=== PATIENT | female | born 1970 | race Caucasian/White ===

== ENCOUNTER → 2016-04-15 | Outpatient (CLI) | payer MEDICARE ==
[~2016-04-15] MED LIST: /DULO30CA OR; /ESOM40CA; /ESOM40CA OR; /SUCR1TA; ALPH0.156 OU; ASCOL; BACL10TA2 OR; BACL10TA2 PO; CALA240T OR; CARA1SUS OR; CARB20TA PO; DEXI60CA PO; DEXILANT PO; DILA2TAB; DILA4TAB PO; DIOV320T OR; DULO20CA; ELMIRON OR; EMBEDA; HYDR-3716 PO; HYDR25TA6 OR; IMIT100T OR; IMIT6INJ; IMIT6INJ SC; KEFL250C6 PO; KEFL500C; KLOR-CON PO; KLOR1TAB69 PO; LIDO1SOL7; LISI20TA5 OR; LYRI75CA; METH10TA2 OR; PENT10CA PO; POTAGRA83 OR; POTASSIUM; PREG50CA OR; REPLAX; TEGR200T PO; TOPI50TA OR; VICO5TAB; VICO5TAB OR; VICODINES TAB OR; [UNRECOGNIZED DRUG - OTHER]; [UNRECOGNIZED DRUG - OTHER]
--- NOTE | 2016-04-17 00:37 | ECWPNPC ---
PATIENT NAME: FATIMAH DEL VALLE : 1970 GENDER: FEMALE VISIT DATE: 04/15/2016 DISCHARGE DATE: 04/15/16 0000 VISIT LOCKED DATE TIME: PHYSICIAN: JOSAFAT ARRIAGA RESOURCE: JOSAFAT ARRIAGA REASON FOR APPOINTMENT 1. MIGRAINE HISTORY OF PRESENT ILLNESS HISTORY OF PRESENT ILLNESS: CONTINUES W CHRONIC LEFT HEAD AND FACIAL PAIN W HX OF MULTIPLE SURGICAL PROCEDURES FOR TRIGEMINAL NEURALGIA.HAD BILAT. SUPRAPUBIC NERVE BLOCK ETC ON 05-10-15 W >75% IMPROVEMENT POSTERIOR HEAD AND LEFT EYE PAIN .CONTINUES W USE OF METHADONE 10MG 2 TAB AM ,1 TAB 12N AND 2 TAB AT HS .USING DILAUDID 4MG RARELY FOR SEVERE EPISODES.USING LYRICA 100MG BID PERSCRIBED BY DR. LAGOS.DENIES SIDE EFFECTS W CURRENT PAIN MEDICATION.PATIENT IS CONCERNED THAT SHE IS HAVING TOO MUCH OPIOD AND THEREFORE IF SHE HAS SURGERY HER PAIN WOULD BE DIFFICULT TO CONTROL.SHE HAS BEEN HAVING SEVERE PAIN TODAY AND IS CRYING INTERMITTENTLY THROUGHOUT VISIT DUE TO SEVERE EPISODES OF PAIN SHOOTING FROM LEFT UPPER MOUTH TO LEFT EYE.STATES IT FEELS LIKE SOMEONE IS RIPPING OUT LEFT UPPER TEETH. HAS BEEN HAVING LEFT SCALP AND FACIAL DERMITITIS X1 MOS.FOLLOWING WITH DR. BEATTY FOR THIS. RATING PAIN VAS 8/10. REVIEW OF HER CASE TOOK GREATER THAN 20MIN OF EXAM TIME. PAIN THE PATIENT DESCRIBES THE PAIN... THE PATIENT DESCRIBES THE PAIN... FALL RISK SCREENING: SCREENING :NO FALLS IN THE PAST YEAR CURRENT MEDICATIONS TAKING TEGRETOL XR 200 MG TABLET EXTENDED RELEASE 12 HOUR 2 TABS IN AM, 3 TABS IN PM ORALLY DIRECTED/DR. LAGOS TAKING TOPAMAX 50 50MG TABLET 3 TABLETS ORAL TWICE DAILY TAKING RANITIDINE HCL 300 MG CAPSULE 1 CAPSULE AT BEDTIME ORALLY ONCE A DAY TAKING VERAPAMIL HCL CR 300 MG CAPSULE EXTENDED RELEASE 24 HOUR 1 CAPSULE ORALLY BEFORE BEDTIME TAKING HYDROCHLOROTHIAZIDE 12.5 12.5MG TABLET 1 TAB(S) ORAL DAILY TAKING MULTIVITAMINS TABLET 1 TAB ORALLY DAILY TAKING ELMIRON 100 MG CAPSULE 1 CAPSULE ON AN EMPTY STOMACH ORALLY THREE TIMES A DAY TAKING IMITREX STATDOSE SYSTEM 6 MG/0.5ML KIT ALSO TAKES 100MG TAB PRN SUBCUTANEOUS PRN/H/A TAKING POTASSIUM CHLORIDE 10 10 MEQ TABLET 2 TAB(S) ORAL BID TAKING DIOVAN 320 MG TABLET 1 TABLET ORALLY ONCE A DAY TAKING DEXILANT 60 MG CAPSULE DELAYED RELEASE 1 CAPSULE ORALLY ONCE A DAY TAKING LYRICA 150 MG CAPSULE 1 CAPSULE ORALLY BID FOR PAIN TAKING METHADONE HCL 10 MG TABLET 1-2 TABLET ORALLY 2 TABS Q AM, 1 TAB AT MIDDAY, 2 TABS AT BEDTIME MDD=5 CHRONIC PAIN TAKING GARLIC - CAPSULE 1 CAP ORALLY DAILY TAKING MAY HAVE TUMERIC 1 CAP ORALLY DAILY TAKING CALCIUM MAGNESIUM PLUS ZINC 1 CAP ORALLY DAILY TAKING VITAMIN B COMPLEX - TABLET 1 TAB ORALLY DAILY TAKING MELATONIN 5 MG TABLET 1 TABLET AT BEDTIME NEEDED WITH FOOD ORALLY ONCE A DAY TAKING HYDROXYZINE HCL 25 MG TABLET 1 TABLET NEEDED ORALLY EVERY 8 HRS FOR ITCHING TAKING CYMBALTA 60 MG CAPSULE DELAYED RELEASE PARTICLES 1 CAPSULE ORALLY TWICE DAILY TAKING DILAUDID 4 MG TABLET 1 TABLET NEEDED ORALLY EVERY 6 HRS MDD4 NOT-TAKING HYDROCODONE-ACETAMINOPHEN 10-325 TABLET 1 TAB MAX 6 DAILY ORALLY EVERY 6 HRS PRN FOR PAIN MDD4, NOTES: 1455 NOT-TAKING DOXYCYCLINE HYCLATE 100 MG CAPSULE 1 CAPSULE ORALLY EVERY 12 HRS MEDICATION LIST REVIEWED AND RECONCILED WITH THE PATIENT PAST MEDICAL HISTORY SEASONAL ALLERGIES ENVIRONMENTAL ALLERGIES INTERSTITIAL CYSTITIS ULCERATIVE COLITIS HYPERTENSION MIGRAINE HEADACHE, CLUSTER CUELLAR 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 TAKES METHODONE, CAN'T TAKE: CONTRAINDICATION SOCIAL HISTORY TOBACCO USE ARE YOU A:NONSMOKER LEARNING BARRIERS / SPECIAL NEEDS ORIENTED TO PLAN OF CARE: PATIENT, PAIN MANAGEMENT PATIENT, ORIENTED TO PLAN OF CARE: PATIENT, PAIN MANAGEMENT PATIENT. NEW PATIENT PAIN DIARY TODAY'S VISITNOTES FROM 0-10, WHAT LEVEL IS YOUR PAIN TODAY?0 PAIN CLINIC PFS, CLERGY, PUBLIC HEALTH REFERRALS PFS REFERRAL NEEDED?NO CLERGY REFERRAL NEEDED?NO PUBLIC HEALTH REFERRAL NEEDED?NO WAS THE PROVIDER NOTIFIED OF ANY PERTINENT INFO?NO PFS REFERRAL NEEDED?NO CLERGY REFERRAL NEEDED?NO PUBLIC HEALTH REFERRAL NEEDED?NO WAS THE PROVIDER NOTIFIED OF ANY PERTINENT INFO?NO REVIEW OF SYSTEMS CONSTITUTIONAL: ANY CHANGE IN YOUR MEDICAL CONDITION? YES PT REPORTS INCREASE IN CONFUSION, DIZZINESS, NAUSEA, AND CRYING. SHE HAS AN APPOINTMENT WITHDR. LAGOS THE END OF APRIL. . CHILLS NO . FEVER NO . INFECTION: DO YOU HAVE NEW INFECTIONS? NO . DO YOU HAVE HISTORY OF MRSA? NO . MUSCULOSKELETAL: ANY NEW PATTERNS OF PAIN OR NUMBNESS? YES PT REPORTS THAT ARMS AND HANDS ARE GETTING RANDOM SHOCK-LIKE PAINS, SCALP AND HEAD PAIN MUCH WORSE, MOVING HER HEAD AND/OR BENDING OVER MAKES PAIN MUCH WORSE, MOSQUE AND EYE HEADACHES HAVE INCREASED IN INTENSITY. OCCIPITAL AREA MUCH WORSE, EXPERIENCING DIZZINESS. . GASTROENTEROLOGY: ANY NEW CHANGE IN BOWEL CONTROL? NO . GENITOURINARY: ANY NEW CHANGE IN BLADDER CONTROL? YES INCREASE IN BLADDER LEAKING . IS THERE A CHANCE YOU COULD BE ? NO . HEMATOLOGY/LYMPH: DO YOU TAKE ANY BLOOD THINNERS? (FOR EXAMPLE- COUMADIN, PLAVIX, AGGRENOX, PLATEL, PRADAXA, OR XARELTO) NO . WHEN WAS YOUR LAST DOSE? DATE: TIME: . NEUROLOGY: HAVE YOU FALLEN IN THE PAST 6 MONTHS? NO . ANY NEW EXTREMITY NUMBNESS OR WEAKNESS? NO . CARDIOLOGY: DO YOU HAVE A PACEMAKER OR DEFIBRILLATOR? NO . RESPIRATORY: HAVE YOU BEEN SICK IN THE PAST WEEK? NO . FEVER NO . FLU LIKE SYMPTOMS? NO . COUGH NO . INTEGUMENTARY: DO YOU HAVE ANY RASHES OR OPEN SORES? YES OPEN AREAS IN SCALP . ALLERGIC/IMMUNO: ARE YOU ALLERGIC TO SHELLFISH OR IV DYE? NO . ANY NEW ALLERGIES? NO . PSYCHIATRIC: DO YOU HAVE THOUGHTS OF HURTING YOURSELF OR SOMEONE ELSE? NO . ARE YOU ABUSED, NEGLECTED, OR IN AN UNSAFE ENVIRONMENT? NO . ENDOCRINOLOGY: ARE YOU DIABETIC? NO . OTHER: DO YOU NEED ANY PRESCRIPTIONS? NO . IF YES, PLEASE LIST: ____ . ANY NEW PROBLEMS WITH YOUR MEDICATIONS? NO . WHEN DID YOU LAST EAT? ____ . WHEN DID YOU LAST DRINK? ____ . WHAT DID YOU LAST DRINK? ____ . NAME OF PERSON DRIVING YOU HOME? ____ . DO YOU HAVE ANY OTHER QUESTIONS OR CONCERNS NO . REVIEWED BY: PROVIDER: JOSAFAT ADLER . VITAL SIGNS WT 170 LBS, HT 62 1/2, BMI 30.59 INDEX, BP 151/100 MM HG, HR 98 /MIN, RR 18 /MIN, TEMP 99.6 F, OXYGEN SAT % 98%, SAFE IN ENV? (Y/N) YES, REVIEWED BY: ALLAN. EXAMINATION GENERAL EXAMINATION: GENERAL APPEARANCE:SEVERE DISCOMFORT WITH INTERMITTENT EPISODES OF LEFT FACIAL,EYE AND NECK JERKING TWITCH.BECOMES TEARFUL WITH REPORTS OF INCREASE IN SEVERE PAIN DURING THESES MOVEMENTS.. HEENT:PUPILS EQUAL AND REACTIVE TO LIGHT (AYANA).HYPER SENSITIVE TO LIGHT TOUCH LEFT FACE AND HEAD.TENDER OVER LEFT OCCIPITAL AREA AND SCAR IN THIS AREA.. NECK:NO LYMPHADENOPATHY. LUNGS:LUNG SOUNDS ARE CLEAR. HEART:HEART RATE REGULAR. MUSCULOSKELETAL:*. NEUROLOGIC EXAM:DTRS 1-2+ IN ALL 4 EXTREMITIES, MOTOR STRENGTH - 5/5 UPPER AND LOWER EXTREMITIES. 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 BRINGS IN MEDICATIONS WHICH IS APPROPRIATE FOR WHAT WAS DISPENSED. RECENT URINE TOXICOLOGY REVIEWED. NO UNAUTHORIZED MEDICATIONS. NO ILLICIT SUBSTANCES AND PRESCRIBED MEDICATIONS WERE PRESENT. , RISKS AND BENEFITS OF NARCOTIC/OPIOD MEDICATIONS WERE REVIEWED WITH PATIENT - THIS INCLUDES BUT IS NOT LIMITED TO RISK OF DEPENDANCE/DEVELOPMENT OF ADDICTION, MOOD DISTURBANCE AND DEPRESSION, OSTEOPOROSIS, HORMONAL AND LABIDAL CHANGES, RESPIRATORY DEPRESSION AND . PATIENT IS ADVISED NOT TO DRIVE WHILE ON THESE MEDICATIONSPATIENT IS ADVISED TO BE EVALUATED AT ER TODAY DUE TO SEVERE LEFT FACIAL PAIN. PROCEDURE CODES FA211 ESTABILISHED PATIENT [facility] FACILITY CHARGE FOLLOW UP 2 WEEKS (REASON: JIA PLEASE CHECK ON [facility] REFFERAL AND INJECTIONS REQUESTED AT DR TIMMONS VISIT ) ELECTRONICALLY SIGNED BY NAYELY OODM ON 04/15/2016 AT 04:55 PM EST DISCLAIMER : THIS IS A VISIT SUMMARY EXTRACTED FROM THE [employer] CHART. IT IS NOT A COPY OF THE [employer] PROGRESS NOTE. MTDD
== END ==
LOC: M PAIN 15:00
PROVIDERS: ATTEND Nurse Practitioner Family
DX: Z09 Encounter for follow-up examination after completed treatment for conditions other than malignant neoplasm (principal); G50.0 Trigeminal neuralgia; I10 Essential (primary) hypertension; G43.919 Migraine, unspecified, intractable, without status migrainosus; N30.10 Interstitial cystitis (chronic) without hematuria; Q61.3 Polycystic kidney, unspecified; K22.70 Barrett's esophagus without dysplasia; M51.36 Other intervertebral disc degeneration, lumbar region; M79.7 Fibromyalgia; L23.1 Allergic contact dermatitis due to adhesives; Z88.8 Allergy status to other drugs, medicaments and biological substances; Z79.891 Long term (current) use of opiate analgesic; Z79.899 Other long term (current) drug therapy; Z87.19 Personal history of other diseases of the digestive system; Z86.69 Personal history of other diseases of the nervous system and sense organs; Z86.79 Personal history of other diseases of the circulatory system

== ENCOUNTER → 2016-05-08 | Outpatient (CLI) | payer MEDICARE, OTHER ==
[2016-05-08 14:33] LABS: BASO # 0.1 K/mm3 (0.0-0.2); BASO % 0.9 % (0.0-1.0); EOS # 0.2 K/mm3 (0.0-0.50); EOS % 2.5 % (0.0-3.0); LARGE UNSTAINED CELL # 0.2 K/mm3 (0.0-0.4); LARGE UNSTAINED CELL % 2.8 % (0.0-4.0); LYMPH # 2.9 K/mm3 (1.5-4.5); LYMPH % 42.2 % (24.0-44.0); MEAN CORPUSCULAR HEMOGLOBIN 31.2 pg (27.0-33.0); MEAN CORPUSCULAR HGB CONC 33.1 g/dl (32.0-36.5); MEAN CORPUSCULAR VOLUME 94.5 fl (80.0-96.0); MONO # 0.4 K/mm3 (0.0-0.8); MONO % 5.6 % (0.0-5.0); NEUTROPHILS # 3.2 K/mm3 (1.8-7.7); PLATELET COUNT, AUTOMATED 314 k/mm3 (150-450); RED CELL DISTRIBUTION WIDTH 12.4 % (11.5-14.5)
[2016-05-08 14:45] LABS: ALBUMIN 3.8 GM/DL (3.2-5.2); ALBUMIN/GLOBULIN RATIO 1.12 (1.00-1.93); ALKALINE PHOSPHATASE 118 U/L (45-117); ALT/SGPT 22 U/L (12-78); ANION GAP 6 MEQ/L (8-16); AST/SGOT 11 U/L (15-37); BILIRUBIN,TOTAL 0.2 MG/DL (0.2-1.0); BLOOD UREA NITROGEN 14 MG/DL (7-18); CALCIUM LEVEL 8.6 MG/DL (8.5-10.1); CARBON DIOXIDE LEVEL 30 MEQ/L (21-32); CHLORIDE LEVEL 106 MEQ/L (98-107); GLOMERULAR FILTRATION RATE > 60.0 (>58); GLUCOSE, FASTING 90 MG/DL (70-105); POTASSIUM SERUM 4.7 MEQ/L (3.5-5.1); SODIUM LEVEL 142 MEQ/L (136-145); TOTAL PROTEIN 7.2 GM/DL (6.4-8.2)
[2016-05-08 15:06] LABS: ERYTHROCYTE SEDIMENTATION RATE 11 mm/hr (0-20)
== END | disposition home or self-care (01) ==
LOC: M LAB 13:51
PROVIDERS: ATTEND Nurse Practitioner Adult Health
DX: R21 Rash and other nonspecific skin eruption (principal); I10 Essential (primary) hypertension; G50.0 Trigeminal neuralgia

== ENCOUNTER → 2016-05-19 | Outpatient (REF) | payer MEDICARE, OTHER | END | disposition home or self-care (01) | LOC: M LAB REF 15:09 | PROVIDERS: ATTEND Nurse Practitioner Adult Health | DX: R21 Rash and other nonspecific skin eruption (principal); I10 Essential (primary) hypertension; G50.0 Trigeminal neuralgia ==

== ENCOUNTER → 2016-07-01 | Outpatient (CLI) | payer MEDICARE, MEDICAID, OTHER ==
--- NOTE | 2016-07-08 00:54 | ECWPNPC ---
PATIENT NAME: FATIMAH DEL VALLE : 1970 GENDER: FEMALE VISIT DATE: 07/01/2016 DISCHARGE DATE: 07/01/16 1512 VISIT LOCKED DATE TIME: PHYSICIAN: JOSAFAT ARRIAGA RESOURCE: JOSAFAT ARRIAGA REASON FOR APPOINTMENT 1. HEAD HISTORY OF PRESENT ILLNESS HISTORY OF PRESENT ILLNESS: 45 Y/O FEMALE HERE FOR F/U AND MANAGEMENT OF LEFT FACIAL AND SCALP PAIN.AGAIN PATIENT IS IN SEVERE PAIN.COMPLAINING OF SCALP LESIONS LEFT SCALP.STATES PRIMARY CARE AT DR. ARREDONDO DOESNT KNOW WHAT IS GOING ON.HAS APPOINTMENT WITH DR. MOLINA FOR HER SECOND VISIT SOON.VERY DISTRAUGHT TODAY.CONTINUES WITH POOR SLEEP AT NIGHT.RATING PAIN VAS 8/10.HAVING EXTREME LEFT EYE BURNING AND STABBING PAIN.DOES FEEL INCREASE IN METHADONE TO 6 TAB PER DAY DONE AT LAST VISIT HAS BEEN HELPFUL.USING MELATONIN AT NIGHT WHICH HAS BEEN HELPFUL. FALL RISK SCREENING: SCREENING :NO FALLS IN THE PAST YEAR CURRENT MEDICATIONS TAKING TEGRETOL XR 200 MG TABLET EXTENDED RELEASE 12 HOUR 2 TABS IN AM, 3 TABS IN PM ORALLY DIRECTED/DR. LAGOS TAKING TOPAMAX 50 50MG TABLET 3 TABLETS ORAL TWICE DAILY TAKING RANITIDINE HCL 300 MG CAPSULE 1 CAPSULE AT BEDTIME ORALLY ONCE A DAY TAKING VERAPAMIL HCL CR 300 MG CAPSULE EXTENDED RELEASE 24 HOUR 1 CAPSULE ORALLY BEFORE BEDTIME TAKING HYDROCHLOROTHIAZIDE 12.5 12.5MG TABLET 1 TAB(S) ORAL DAILY TAKING MULTIVITAMINS TABLET 1 TAB ORALLY DAILY TAKING ELMIRON 100 MG CAPSULE 1 CAPSULE ON AN EMPTY STOMACH ORALLY THREE TIMES A DAY TAKING IMITREX STATDOSE SYSTEM 6 MG/0.5ML KIT ALSO TAKES 100MG TAB PRN SUBCUTANEOUS PRN/H/A TAKING POTASSIUM CHLORIDE 10 10 MEQ TABLET 2 TAB(S) ORAL BID TAKING DIOVAN 320 MG TABLET 1 TABLET ORALLY ONCE A DAY TAKING DEXILANT 60 MG CAPSULE DELAYED RELEASE 1 CAPSULE ORALLY ONCE A DAY TAKING GARLIC - CAPSULE 1 CAP ORALLY DAILY TAKING MAY HAVE TUMERIC 1 CAP ORALLY DAILY TAKING CALCIUM MAGNESIUM PLUS ZINC 1 CAP ORALLY DAILY TAKING VITAMIN B COMPLEX - TABLET 1 TAB ORALLY DAILY TAKING MELATONIN 5 MG TABLET 1 TABLET AT BEDTIME NEEDED WITH FOOD ORALLY ONCE A DAY TAKING CYMBALTA 60 MG CAPSULE DELAYED RELEASE PARTICLES 1 CAPSULE ORALLY TWICE DAILY TAKING LYRICA 100 MG CAPSULE 1 CAPSULE ORALLY BID FOR PAIN TAKING NORCO 10-325 MG TABLET 1 TABLET NEEDED ORALLY Q6H PRN MDD4 TAKING METHADONE HCL 10 MG TABLET 2 ORALLY 2TAB Q8H MDD6 TAKING NORCO 10-325 MG TABLET 1 ORALLY EVERY 6 HRS MDD4 NOT-TAKING HYDROXYZINE HCL 25 MG TABLET 1 TABLET NEEDED ORALLY EVERY 8 HRS FOR ITCHING NOT-TAKING HYDROCODONE-ACETAMINOPHEN 10-325 TABLET 1 TAB MAX 6 DAILY ORALLY EVERY 6 HRS PRN FOR PAIN MDD4, NOTES: 1455 NOT-TAKING LYRICA 50 MG CAPSULE ORALLY TID NOT-TAKING DOXYCYCLINE HYCLATE 100 MG CAPSULE 1 CAPSULE ORALLY EVERY 12 HRS MEDICATION LIST REVIEWED AND RECONCILED WITH THE PATIENT PAST MEDICAL HISTORY SEASONAL ALLERGIES ENVIRONMENTAL ALLERGIES INTERSTITIAL CYSTITIS ULCERATIVE COLITIS HYPERTENSION MIGRAINE HEADACHE, CLUSTER CUELLAR 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 TAKES METHODONE, CAN'T TAKE: CONTRAINDICATION REVIEW OF SYSTEMS CONSTITUTIONAL: ANY CHANGE IN YOUR MEDICAL CONDITION? NO . CHILLS NO . FEVER NO . INFECTION: DO YOU HAVE NEW INFECTIONS? NO . DO YOU HAVE HISTORY OF MRSA? NO . MUSCULOSKELETAL: ANY NEW PATTERNS OF PAIN OR NUMBNESS? NO . GASTROENTEROLOGY: ANY NEW CHANGE IN BOWEL CONTROL? NO . GENITOURINARY: ANY NEW CHANGE IN BLADDER CONTROL? NO . IS THERE A CHANCE YOU COULD BE ? NO . HEMATOLOGY/LYMPH: DO YOU TAKE ANY BLOOD THINNERS? (FOR EXAMPLE- COUMADIN, PLAVIX, AGGRENOX, PLATEL, PRADAXA, OR XARELTO) NO . WHEN WAS YOUR LAST DOSE? DATE: TIME: . NEUROLOGY: HAVE YOU FALLEN IN THE PAST 6 MONTHS? NO . ANY NEW EXTREMITY NUMBNESS OR WEAKNESS? NO . CARDIOLOGY: DO YOU HAVE A PACEMAKER OR DEFIBRILLATOR? NO . RESPIRATORY: HAVE YOU BEEN SICK IN THE PAST WEEK? NO . FEVER NO . FLU LIKE SYMPTOMS? NO . COUGH NO . INTEGUMENTARY: DO YOU HAVE ANY RASHES OR OPEN SORES? YES SCALP VERY INFLAMMED AND &QUOT;COMING OFF IN SHEETS&QUOT; . ALLERGIC/IMMUNO: ARE YOU ALLERGIC TO SHELLFISH OR IV DYE? NO . ANY NEW ALLERGIES? NO . PSYCHIATRIC: DO YOU HAVE THOUGHTS OF HURTING YOURSELF OR SOMEONE ELSE? NO . ARE YOU ABUSED, NEGLECTED, OR IN AN UNSAFE ENVIRONMENT? NO . ENDOCRINOLOGY: ARE YOU DIABETIC? NO . OTHER: DO YOU NEED ANY PRESCRIPTIONS? NO . IF YES, PLEASE LIST: ____ . ANY NEW PROBLEMS WITH YOUR MEDICATIONS? NO . WHEN DID YOU LAST EAT? ____ . WHEN DID YOU LAST DRINK? ____ . WHAT DID YOU LAST DRINK? ____ . NAME OF PERSON DRIVING YOU HOME? ____ . DO YOU HAVE ANY OTHER QUESTIONS OR CONCERNS NO . REVIEWED BY: PROVIDER: JOSAFAT ADLER . VITAL SIGNS WT 186.8 LBS, HT 62 1/2, BMI 33.62 INDEX, BP 150/95 MM HG, HR 100 /MIN, RR 16 /MIN, TEMP 97.7 F, OXYGEN SAT % 97, NA INITIALS TL 1419, REVIEWED BY: KG. EXAMINATION GENERAL EXAMINATION: GENERAL APPEARANCE:SEVERE DISCOMFORT WITH INTERMITTENT EPISODES OF LEFT FACIAL,EYE AND NECK JERKING TWITCH.BECOMES TEARFUL WITH REPORTS OF INCREASE IN SEVERE PAIN DURING THESES MOVEMENTS.. HEENT:PUPILS EQUAL AND REACTIVE TO LIGHT (AYANA).HYPER SENSITIVE TO LIGHT TOUCH LEFT FACE AND HEAD.TENDER OVER LEFT OCCIPITAL AREA AND SCAR IN THIS AREA.. NECK:NO LYMPHADENOPATHY. LUNGS:LUNG SOUNDS ARE CLEAR. HEART:HEART RATE REGULAR. MUSCULOSKELETAL:*. NEUROLOGIC EXAM:DTRS 1-2+ IN ALL 4 EXTREMITIES, MOTOR STRENGTH - 5/5 UPPER AND LOWER EXTREMITIES. 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 IT IS NOT A COPY OF THE [employer] PROGRESS NOTE. MTDD
== END ==
LOC: M PAIN 14:00
PROVIDERS: ATTEND Nurse Practitioner Family
DX: Z09 Encounter for follow-up examination after completed treatment for conditions other than malignant neoplasm (principal); G89.29 Other chronic pain; G50.0 Trigeminal neuralgia; J30.9 Allergic rhinitis, unspecified; I10 Essential (primary) hypertension; G44.009 Cluster headache syndrome, unspecified, not intractable; M79.1 Myalgia; K51.90 Ulcerative colitis, unspecified, without complications; N30.10 Interstitial cystitis (chronic) without hematuria; Q61.3 Polycystic kidney, unspecified; K22.70 Barrett's esophagus without dysplasia; M51.06 Intervertebral disc disorders with myelopathy, lumbar region; Z88.8 Allergy status to other drugs, medicaments and biological substances; Z79.891 Long term (current) use of opiate analgesic; Z79.899 Other long term (current) drug therapy; Z88.1 Allergy status to other antibiotic agents

== ENCOUNTER → 2016-07-10 | Outpatient (REF) | payer MEDICARE, MEDICAID | LOC: M SFHCPLAZ 13:07 | PROVIDERS: ATTEND Internal Medicine Infectious Disease | DX: R21 Rash and other nonspecific skin eruption (principal) ==

== ENCOUNTER → 2016-07-16 | Outpatient (CLI) | payer MEDICARE, MEDICAID ==
--- NOTE | 2016-07-25 00:12 | ECWPNPC ---
PATIENT NAME: FATIMAH DEL VALLE : 1970 GENDER: FEMALE VISIT DATE: 07/16/2016 DISCHARGE DATE: 07/16/16 0000 VISIT LOCKED DATE TIME: PHYSICIAN: JOSAFAT ARRIAGA RESOURCE: JOSAFAT ARRIAGA HISTORY OF PRESENT ILLNESS HISTORY OF PRESENT ILLNESS: HERE FOR F/U OF CHRONIC LEFT SIDE FACIAL/HEAD PAIN .SAW A FEW DAYS AGO FOR SCALP LESIONS AND WAS DIAGNOSED WITH DELUSIONS OF PARASITOSS AND PLACED ON ATIVAN.SHE SEEMS MUCH MORE CALM AT THIS VISIT.STATES HER FAMILY HAD A HEART TO HEART DISCUSSION AND FELT THAT SHE WAS HAVING PSYCHOLOGICAL ISSUES CAUSING ALOT OF HER SUFFERING.SHE NOW WILL BE SEEING PSYCHOTHERAPY.ALSO STATES SHE WILL BE GOING TO TO [facility] PER OUR REFERRAL FOR TRIGEMINAL NEURALGIA IN A FE MONTHS.CNTINUES TO SUFFER WITH GENERALIZED BODY PAIN BUT WORSE AREA IS HER HEAD L>R.FINDS CHRONIC PAIN MEDICATION HELPFUL.DENIES SIDE EFFECTS. PAIN THE PATIENT DESCRIBES THE PAIN... FALL RISK SCREENING: SCREENING :NO FALLS IN THE PAST YEAR CURRENT MEDICATIONS TAKING VITAMIN B COMPLEX - TABLET 1 TAB ORALLY DAILY TAKING NORCO 10-325 MG TABLET 1 ORALLY EVERY 6 HRS MDD4 TAKING TEGRETOL XR 200 MG TABLET EXTENDED RELEASE 12 HOUR 2 TABS IN AM, 3 TABS IN PM ORALLY DIRECTED/DR. LAGOS TAKING TOPAMAX 50 50MG TABLET 3 TABLETS ORAL TWICE DAILY TAKING RANITIDINE HCL 300 MG CAPSULE 1 CAPSULE AT BEDTIME ORALLY ONCE A DAY TAKING VERAPAMIL HCL ER 300 MG CAPSULE EXTENDED RELEASE 24 HOUR 1 CAPSULE ORALLY BEFORE BEDTIME TAKING HYDROCHLOROTHIAZIDE 12.5 12.5MG TABLET 1 TAB(S) ORAL DAILY TAKING MULTIVITAMINS TABLET 1 TAB ORALLY DAILY TAKING ELMIRON 100 MG CAPSULE 1 CAPSULE ON AN EMPTY STOMACH ORALLY THREE TIMES A DAY TAKING IMITREX STATDOSE SYSTEM 6 MG/0.5ML KIT ALSO TAKES 100MG TAB PRN SUBCUTANEOUS PRN/H/A TAKING POTASSIUM CHLORIDE 10 10 MEQ TABLET 2 TAB(S) ORAL BID TAKING DIOVAN 320 MG TABLET 1 TABLET ORALLY ONCE A DAY TAKING DEXILANT 60 MG CAPSULE DELAYED RELEASE 1 CAPSULE ORALLY ONCE A DAY TAKING CALCIUM MAGNESIUM PLUS ZINC 1 CAP ORALLY DAILY TAKING MELATONIN 5 MG TABLET 1 TABLET AT BEDTIME NEEDED WITH FOOD ORALLY ONCE A DAY TAKING CYMBALTA 60 MG CAPSULE DELAYED RELEASE PARTICLES 1 CAPSULE ORALLY TWICE DAILY TAKING LYRICA 100 MG CAPSULE 1 CAPSULE ORALLY BID FOR PAIN TAKING NORCO 10-325 MG TABLET 1 TABLET NEEDED ORALLY Q6H PRN MDD4 TAKING METHADONE HCL 10 MG TABLET 2 ORALLY 2TAB Q8H MDD6 TAKING LYRICA 50 MG CAPSULE 1 CAPSULE ORALLY THREE TIMES A DAY TAKING CEPHALEXIN 500 MG CAPSULE 1 CAPSULE ORALLY TWICE A DAY TAKING IMITREX 100 MG TABLET 1 TABLET NEEDED ORALLY TWICE A DAY TAKING TRAZODONE HCL 50 MG TABLET 1 TABLET AT BEDTIME NEEDED ORALLY ONCE A DAY NOT-TAKING GARLIC - CAPSULE 1 CAP ORALLY DAILY NOT-TAKING MAY HAVE TUMERIC 1 CAP ORALLY DAILY NOT-TAKING HYDROXYZINE HCL 25 MG TABLET 1 TABLET NEEDED ORALLY EVERY 8 HRS FOR ITCHING NOT-TAKING HYDROCODONE-ACETAMINOPHEN 10-325 TABLET 1 TAB MAX 6 DAILY ORALLY EVERY 6 HRS PRN FOR PAIN MDD4, NOTES: 1455 NOT-TAKING LYRICA 50 MG CAPSULE ORALLY TID NOT-TAKING DOXYCYCLINE HYCLATE 100 MG CAPSULE 1 CAPSULE ORALLY EVERY 12 HRS MEDICATION LIST REVIEWED AND RECONCILED WITH THE PATIENT PAST MEDICAL HISTORY SEASONAL ALLERGIES ENVIRONMENTAL ALLERGIES INTERSTITIAL CYSTITIS ULCERATIVE COLITIS HYPERTENSION MIGRAINE HEADACHE, CLUSTER CUELLAR 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 TAKES METHODONE, CAN'T TAKE: CONTRAINDICATION SURGICAL HISTORY DECOMPRESSION SURGERY 2005 BLADDER SURGERY LAMINECTOMY X 3 GAMMA KNIFE SURGERY TOE SURGERY-LEFT GREAT LAPAROSCOPY-EXPLORATORY CHOLECYSTECTOMY BALLOON COMPRESSION-BRAIN LAPAROSCOPIC TRIGEMINAL NERVE BLOCK TEMPORAL NERVE SURGERY 12/2013 SOCIAL HISTORY GENERAL: PAIN CLINIC PFS, CLERGY, PUBLIC HEALTH REFERRALS CLERGY REFERRAL NEEDED?NO WAS THE PROVIDER NOTIFIED OF ANY PERTINENT INFO?NO PFS REFERRAL NEEDED?NO PUBLIC HEALTH REFERRAL NEEDED?NO PATIENT: ____. HOSPITALIZATION/MAJOR DIAGNOSTIC PROCEDURE RELATED TO SURG REVIEW OF SYSTEMS CONSTITUTIONAL: ANY CHANGE IN YOUR MEDICAL CONDITION? NO . CHILLS NO . FEVER NO . INFECTION: DO YOU HAVE NEW INFECTIONS? NO . DO YOU HAVE HISTORY OF MRSA? NO . MUSCULOSKELETAL: ANY NEW PATTERNS OF PAIN OR NUMBNESS? YES, RIGHT BREAST PAIN DR MOLINA HAS PEGGY ZAMAN . GASTROENTEROLOGY: ANY NEW CHANGE IN BOWEL CONTROL? NO . GENITOURINARY: ANY NEW CHANGE IN BLADDER CONTROL? NO . IS THERE A CHANCE YOU COULD BE ? NO . HEMATOLOGY/LYMPH: DO YOU TAKE ANY BLOOD THINNERS? (FOR EXAMPLE- COUMADIN, PLAVIX, AGGRENOX, PLATEL, PRADAXA, OR XARELTO) NO . WHEN WAS YOUR LAST DOSE? DATE: TIME: . NEUROLOGY: HAVE YOU FALLEN IN THE PAST 6 MONTHS? NO . ANY NEW EXTREMITY NUMBNESS OR WEAKNESS? NO . CARDIOLOGY: DO YOU HAVE A PACEMAKER OR DEFIBRILLATOR? NO . RESPIRATORY: HAVE YOU BEEN SICK IN THE PAST WEEK? NO . FEVER NO . FLU LIKE SYMPTOMS? NO . COUGH NO . INTEGUMENTARY: DO YOU HAVE ANY RASHES OR OPEN SORES? YES, SCALP . ALLERGIC/IMMUNO: ARE YOU ALLERGIC TO SHELLFISH OR IV DYE? NO . ANY NEW ALLERGIES? NO . PSYCHIATRIC: DO YOU HAVE THOUGHTS OF HURTING YOURSELF OR SOMEONE ELSE? NO . ARE YOU ABUSED, NEGLECTED, OR IN AN UNSAFE ENVIRONMENT? NO . ENDOCRINOLOGY: ARE YOU DIABETIC? NO . OTHER: DO YOU NEED ANY PRESCRIPTIONS? YES . IF YES, PLEASE LIST: METHADONE . ANY NEW PROBLEMS WITH YOUR MEDICATIONS? NO . WHEN DID YOU LAST EAT? ____ . WHEN DID YOU LAST DRINK? ____ . WHAT DID YOU LAST DRINK? ____ . NAME OF PERSON DRIVING YOU HOME? ____ . DO YOU HAVE ANY OTHER QUESTIONS OR CONCERNS NO . REVIEWED BY: PROVIDER: JOSAFAT ADLER . VITAL SIGNS WT 184.0 LBS, HT 62 1/2, BMI 33.11 INDEX, BP 138/98 MM HG, HR 100 /MIN, RR 18 /MIN, TEMP 98.6 F, OXYGEN SAT % 98, NA INITIALS AW 1413, REVIEWED BY: NL. EXAMINATION GENERAL EXAMINATION: GENERAL APPEARANCE:SEVERE DISCOMFORT WITH INTERMITTENT EPISODES OF LEFT FACIAL,EYE AND NECK JERKING TWITCH.BECOMES TEARFUL WITH REPORTS OF INCREASE IN SEVERE PAIN DURING THESES MOVEMENTS.. HEENT:PUPILS EQUAL AND REACTIVE TO LIGHT (AYANA).HYPER SENSITIVE TO LIGHT TOUCH LEFT FACE AND HEAD.TENDER OVER LEFT OCCIPITAL AREA AND SCAR IN THIS AREA.. NECK:NO LYMPHADENOPATHY. LUNGS:LUNG SOUNDS ARE CLEAR. HEART:HEART RATE REGULAR. MUSCULOSKELETAL:*. NEUROLOGIC EXAM:DTRS 1-2+ IN ALL 4 EXTREMITIES, MOTOR STRENGTH - 5/5 UPPER AND LOWER EXTREMITIES. 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 (PRIMARY) CHRONIC PRESCRIPTION OPIATE USE - Z79.891 TREATMENT TRIGEMINAL NEURALGIA CONTINUE NORCO TABLET, 10-325 MG, 1, ORALLY, EVERY 6 HRS MDD4 CONTINUE METHADONE HCL TABLET, 10 MG, 2, ORALLY, 2TAB Q8H MDD6 START HYDROXYZINE HCL TABLET, 25 MG, 1 TABLET NEEDED, ORALLY, EVERY 8 HRS PRN, 30 DAY(S), 45, REFILLS 1 PROCEDURE CODES FA211 ESTABILISHED PATIENT [facility] CHARGE G8730 PAIN ASSESS POS TOOL F/U PLAN DOC G8427 DOC MEDS VERIFIED W/PT OR RE DISPOSITION & COMMUNICATION FOLLOW UP 6 WEEKS ELECTRONICALLY SIGNED BY NAYELY ODOM ON 07/24/2016 AT 06:28 PM EDT DISCLAIMER : THIS IS A VISIT SUMMARY EXTRACTED FROM THE [email or web address] CHART. IT IS NOT A COPY OF THE [email or web address] PROGRESS NOTE. KITD
== END ==
LOC: M PAIN 14:00
PROVIDERS: ATTEND Nurse Practitioner Family
DX: G89.29 Other chronic pain (principal); G50.0 Trigeminal neuralgia; J30.2 Other seasonal allergic rhinitis; K51.90 Ulcerative colitis, unspecified, without complications; I10 Essential (primary) hypertension; M79.7 Fibromyalgia; L20.9 Atopic dermatitis, unspecified; Q61.3 Polycystic kidney, unspecified; G44.009 Cluster headache syndrome, unspecified, not intractable; N30.10 Interstitial cystitis (chronic) without hematuria; Z79.891 Long term (current) use of opiate analgesic; Z79.899 Other long term (current) drug therapy; Z91.048 Other nonmedicinal substance allergy status; Z88.1 Allergy status to other antibiotic agents

== ENCOUNTER → 2016-08-14 | Outpatient (CLI) | payer MEDICARE, MEDICAID ==
[~2016-08-14] VITALS: Ht 160 cm; Wt 81.6 kg
[~2016-08-14] MED LIST changes: +ALL10TAB27 PO; +CALCIUM MAG ZINC PO; +CYMB60CA3 PO; +FLUC10TA PO; +HYDR12CA PO; +HYDR25T PO; +HYDROCODONE/ACET PO; +IMIT100T PO; +LIDOCAINE 2% INJ 100 MG/5 ML SDV (FOR ANES.) As Ordered ONE; +LYRI100C10 PO; +METH10TA2 PO; +MULT1TAB10 PO; +NS 1,000 ML IV ONE; +PAXI20TA3 PO; +POTA10TA16 PO; +PREG50CA PO; +PROBCAP4 PO; +PROPOFOL 500 MG/50 ML VIAL As Ordered ONE; +RANI150T PO; +TOPA50TA7 PO; +TRAZ25TA PO; +VALS1TAB47 PO; +VERA300C PO; +VITA1CAP7 PO; +VITATAB11 PO
--- NOTE | 2016-08-14 15:02 | ROOR ---
Patient Name: Jessica Victoria Procedure Date: 08/14/2016 2:36 PM Date of : 1970 Age: 46 Room: [facility] Gender: Female Note Status: Finalized Procedure: Upper GI endoscopy Indications: Heartburn, Follow-up of Freire's esophagus Providers: Fan SHULTZ MD Referring MD: ABIMAEL BEATTY JR, MD Requesting Provider: Medicines: Monitored Anesthesia Care Complications: No immediate complications. Procedure: Pre-Anesthesia Assessment: - The heart rate, respiratory rate, oxygen saturations, blood pressure, adequacy of pulmonary ventilation, and response to care were monitored throughout the procedure. The Endoscope was introduced through the mouth, and advanced to the second part of duodenum. The upper GI endoscopy was accomplished without difficulty. The patient tolerated the procedure well. Findings: The esophagus and gastroesophageal junction were examined with white light and narrow band imaging (NBI). 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 These changes involved the mucosa at the upper extent of the gastric folds (37 cm from the incisors) extending to the Z-line. Multiple tongues of salmon-colored mucosa were present from 35 to 38 cm. The maximum longitudinal extent of these esophageal mucosal changes was 3 cm in length. Mucosa was biopsied with a cold forceps for histology randomly in the lower third of the esophagus. A total of 2 specimen bottles were sent to pathology. The entire examined stomach was normal. The examined duodenum was normal. 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 Biopsied. - Normal stomach. - Normal examined duodenum. Recommendation: - Await pathology results. - Repeat upper endoscopy in 3 years for surveillance. - Telephone endoscopist for pathology results in 2 weeks. Fan Shultz MD Fan SHULTZ MD 08/14/2016 3:01:25 PM This report has been signed electronically. Number of Addenda: 0 Note Initiated On: 08/14/2016 2:36 PM Estimated Blood Loss: Estimated blood loss: none.
--- NOTE | 2016-08-14 15:04 | ROOR ---
Patient Name: Jessica Victoria Procedure Date: 08/14/2016 2:36 PM Date of : 1970 Age: 46 Room: [facility] Gender: Female Note Status: Finalized Procedure: Colonoscopy Indications: Change in bowel habits Providers: Fan MARIE MD Referring MD: ABIMAEL BEATTY JR, MD Requesting Provider: Medicines: Monitored Anesthesia Care Complications: No immediate complications. Procedure: Pre-Anesthesia Assessment: - The heart rate, respiratory rate, oxygen saturations, blood pressure, adequacy of pulmonary ventilation, and response to care were monitored throughout the procedure. The Colonoscope was introduced through the anus and advanced to the ileocecal valve. The colonoscopy was performed with difficulty due to poor bowel prep with stool present. Successful completion of the procedure was aided by lavage. The patient tolerated the procedure well. The quality of the bowel preparation was inadequate. Findings: The perianal and digital rectal examinations were normal. Stool was found in the entire colon, precluding visualization. The exam was otherwise without abnormality. Impression: - Preparation of the colon was inadequate. - Stool in the entire examined colon. precluding visualization - No specimens collected. Recommendation: - Repeat colonoscopy at the next available appointment because the bowel preparation was suboptimal. - My office will call you to reschedule the procedure. Fan Marie MD Fan MARIE MD 08/14/2016 3:03:58 PM This report has been signed electronically. Number of Addenda: 0 Note Initiated On: 08/14/2016 2:36 PM Estimated Blood Loss: Estimated blood loss: none.
[2016-08-14 15:20] VITALS: BP 120/86
== END | disposition home or self-care (01) ==
LOC: M OPP 13:12
PROVIDERS: ATTEND Internal Medicine Gastroenterology
DX: R19.4 Change in bowel habit (principal); K62.5 Hemorrhage of anus and rectum; R12 Heartburn; K22.70 Barrett's esophagus without dysplasia; I10 Essential (primary) hypertension; M54.2 Cervicalgia; M79.7 Fibromyalgia; R21 Rash and other nonspecific skin eruption; F41.9 Anxiety disorder, unspecified; F32.9 Major depressive disorder, single episode, unspecified; Z87.820 Personal history of traumatic brain injury; G43.909 Migraine, unspecified, not intractable, without status migrainosus; G62.9 Polyneuropathy, unspecified; R06.02 Shortness of breath; Q61.2 Polycystic kidney, adult type; N30.10 Interstitial cystitis (chronic) without hematuria; Z87.891 Personal history of nicotine dependence; Z88.8 Allergy status to other drugs, medicaments and biological substances; Z91.048 Other nonmedicinal substance allergy status; Z79.899 Other long term (current) drug therapy; Z87.19 Personal history of other diseases of the digestive system

== ENCOUNTER 2016-10-17 13:49 | Emergency (ER) | payer MEDICARE, MEDICAID ==
[~2016-10-17] VITALS: Ht 160 cm; Wt 74.0 kg
[~2016-10-17 13:49] MED LIST changes: -DEXI60CA PO; +DEXI60CA2 PO; -DILA4TAB PO; +DILA4TAB13 PO; +HYDR-3363 PO; -HYDR25T PO; +KEFL250C11 PO; -KEFL250C6 PO; -LIDOCAINE 2% INJ 100 MG/5 ML SDV (FOR ANES.) As Ordered ONE; -LYRI100C10 PO; -NS 1,000 ML IV ONE; +PAXI20TA29 PO; -PAXI20TA3 PO; +PREG100CA PO; -PROPOFOL 500 MG/50 ML VIAL As Ordered ONE; -TOPA50TA7 PO; +TOPA50TA8 PO
[2016-10-17 13:50] VITALS: BP 142/91
[2016-10-17] MEDS ORDERED: diphenhydrAMINE INJ 50MG/ML VIAL (J1200) IV STA (14:18)
[2016-10-17] MEDS ORDERED: METOCLOPRAMIDE INJ 10MG/2ML VIAL (J2765) IV ONE (14:30)
[2016-10-17] MEDS ORDERED: HYDROmorphone HCL 1 MG/ML SYRINGE (J1170) IV ONE (14:30)
[2016-10-17] MEDS ORDERED: NS 1,000 ML IV ONE (15:00)
[2016-10-17 15:02] LABS: BASO % 0.6 % (0.0-1.0); EOS # 0.3 K/mm3 (0.0-0.50); LARGE UNSTAINED CELL # 0.1 K/mm3 (0.0-0.4); LARGE UNSTAINED CELL % 1.2 % (0.0-4.0); LYMPH # 3.5 K/mm3 (1.5-4.5); MEAN CORPUSCULAR HEMOGLOBIN 31.4 pg (27.0-33.0); MEAN CORPUSCULAR HGB CONC 32.7 g/dl (32.0-36.5); MEAN CORPUSCULAR VOLUME 96.2 fl (80.0-96.0); MONO # 0.5 K/mm3 (0.0-0.8); NEUTROPHILS # 4.8 K/mm3 (1.8-7.7); NEUTROPHILS % 53.2 % (36.0-66.0); PLATELET COUNT, AUTOMATED 313 k/mm3 (150-450); RED CELL DISTRIBUTION WIDTH 12.7 % (11.5-14.5)
[2016-10-17 15:21] LABS: ANION GAP 5 MEQ/L (8-16); BLOOD UREA NITROGEN 11 MG/DL (7-18); CALCIUM LEVEL 8.5 MG/DL (8.5-10.1); CARBON DIOXIDE LEVEL 26 MEQ/L (21-32); CHLORIDE LEVEL 110 MEQ/L (98-107); CREATININE FOR GFR 0.87 MG/DL (0.55-1.02); GLOMERULAR FILTRATION RATE > 60.0 (>58); GLUCOSE, FASTING 113 MG/DL (70-105); POTASSIUM SERUM 3.4 MEQ/L (3.5-5.1); SODIUM LEVEL 141 MEQ/L (136-145)
[2016-10-17 15:46] LABS: ERYTHROCYTE SEDIMENTATION RATE 10 mm/hr (0-20)
[2016-10-17 15:50] LABS: INR 1.05
--- NOTE | 2016-10-17 16:04 | REP ---
CT HEAD WITHOUT CONTRAST: HISTORY: Headache. COMPARISON: 01/04/2009 The patient is status-post left suboccipital craniectomy. There is no intraparenchymal hemorrhage, mass or midline shift. The ventricular system and cortical sulci as well as subarachnoid space over the left cerebellum are dilated consistent with mild volume loss. There is no extracerebral collection. The visualized sinuses are clear. IMPRESSION: Mild volume loss. Signed by Papi Mccann MD 10/17/2016 04:09 P
[2016-10-17] MEDS ORDERED: SUMAtriptan SUCCINATE 6 MG/0.5 ML VIAL SC ONE (16:30)
[2016-10-17] MEDS ORDERED: methylPREDNISolone INJ 125 MG/2 ML VIAL (J2930) IV ONE (16:45)
--- NOTE | 2016-10-17 17:04 | REP ---
CHEST, SINGLE VIEW: There is no evidence of acute infiltrate. No pleural effusion is seen. The heart is normal in size. The mediastinal silhouette is unremarkable. The visualized osseous structures are intact. IMPRESSION: No acute pulmonary disease. Signed by Yasir Pruett MD 10/17/2016 05:28 P
[2016-10-17] MEDS ORDERED: KETOROLAC 30 MG/ML VIAL (J1885) IV ONE (17:30)
--- NOTE | 2016-10-17 21:37 | ECGEPIP ---
Stationary ECG Study [facility] - ED Test Date: 2016-10-17 Pat Name: FATIMAH DEL VALLE Department: Room: - Gender: F Md Physician Dermatologist: asael : 1970 Requested By: ALEJANDRA Evangelista Order Number: [id number] Reading MD: Cherie Sauceda Measurements Intervals [place] Rate: 76 P: 26 TX: 169 QRS: -4 QRSD: 97 T: 32 QT: 336 QTc: 379 Interpretive Statements SINUS RHYTHM SIMILAR 12/22/13 Electronically Signed On 10-17-2016 21:37:19 EDT by Cherie Sauceda
[2016-11-21] MEDS ORDERED: MELA10TA4 PO (13:26)
[2016-11-21] MEDS ORDERED: IMIT6KIT SC (13:26)
== END 2016-10-17 17:36 | disposition home or self-care (01) ==
LOC: M ED 13:49
DX: G43.909 Migraine, unspecified, not intractable, without status migrainosus (principal); I10 Essential (primary) hypertension; M79.7 Fibromyalgia; G89.29 Other chronic pain; Z79.899 Other long term (current) drug therapy; Z88.1 Allergy status to other antibiotic agents; Z88.8 Allergy status to other drugs, medicaments and biological substances; Z91.048 Other nonmedicinal substance allergy status
CPT/HCPCS: 70450; 71010; 80048; 82550; 82553; 84484; 85025; 85610; 85652; 85730; 86140; 93005; 93041; 96372; 96374; 96375; 99284; J1170; J1200; J1885; J2765; J2930

== ENCOUNTER → 2016-12-10 | Outpatient (CLI) | payer MEDICARE, MEDICAID ==
[~2016-12-10] MED LIST changes: +IMIT6KIT SC; +MELA10TA4 PO
--- NOTE | 2016-12-19 00:29 | ECWPNPC ---
PATIENT NAME: FATIMAH DEL VALLE : 1970 GENDER: FEMALE VISIT DATE: 12/10/2016 DISCHARGE DATE: 12/10/16 1634 VISIT LOCKED DATE TIME: PHYSICIAN: JOSAFAT ARRIAGA RESOURCE: JOSAFAT ARRIAGA REASON FOR APPOINTMENT 1. HEAD HISTORY OF PRESENT ILLNESS HISTORY OF PRESENT ILLNESS: HERE FOR F/U AND MEDICINE MANAGEMENT OF CHRONIC LEFT >R FACIAL /HEAD PAIN.SHE HAS NO SHOWED OR CANCELLED SEVERAL APPOINTMENTS .LAST VISIT WITH ME WAS IN [place],FIVE MONTHS AGO.IN REVIEW OF ENCOUNTERS IN [facility] SHE HAS NO SHOWED FOR SEVERAL DR. MOLINA,PAULETTE JERONIMO AND [facility] VISITS.SHE IS VERY DISTRAUGHT TODAY.STATES SHE IS NOT GOING TO SEE MENTAL HEALTH ANYMORE SHE DOESNT FEEL THERE IS ANYTHING WRONG.SHE IS AGAIN COMPLAINING OF LESIONS ON HER SCALP THAT ARE OOZING.SHE IS FRUSTERTED THAT NOONE CAN FIGURE OUT WHATS GOING ON.INFORMED HER THAT I DIDNT FEEL COMFORTABLE PRESCRIBING NARCOTIC PAIN MEDICATION DUE TO THE FACT THAT SHE DOESNT KEEP APPOINTMENTS WITH HER MEDICAL PROVIDERS.INFORMED HER THAT IT WASNT SAFE.INFORMED HER IT WAS OUR GOAL TO WEAN DOWN ON NARCOTIC PAIN MEDICATION.SHE4 HAS CHRONICALLY NO SHOWED FOR APPOINTMENTS W ME OVER THE YEARS.RATING PAIN VAS 8/10. FALL RISK SCREENING: SCREENING :NO FALLS IN THE PAST YEAR CURRENT MEDICATIONS TAKING HYDROXYZINE HCL 25 MG TABLET 1 TABLET NEEDED ORALLY AT NIGHT NEEDED TAKING VITAMIN B COMPLEX - TABLET 1 TAB ORALLY DAILY TAKING TEGRETOL XR 200 MG TABLET EXTENDED RELEASE 12 HOUR 2 TABS IN AM, 3 TABS IN PM ORALLY DIRECTED/DR. LAGOS TAKING TOPAMAX 50 50MG TABLET 3 TABLETS ORAL TWICE DAILY TAKING RANITIDINE HCL 300 MG CAPSULE 1 CAPSULE AT BEDTIME ORALLY ONCE A DAY TAKING VERAPAMIL HCL ER 300 MG CAPSULE EXTENDED RELEASE 24 HOUR 1 CAPSULE ORALLY BEFORE BEDTIME TAKING HYDROCHLOROTHIAZIDE 12.5 12.5MG TABLET 1 TAB(S) ORAL DAILY TAKING MULTIVITAMINS TABLET 1 TAB ORALLY DAILY TAKING ELMIRON 100 MG CAPSULE 1 CAPSULE ON AN EMPTY STOMACH ORALLY THREE TIMES A DAY TAKING IMITREX STATDOSE SYSTEM 6 MG/0.5ML KIT ALSO TAKES 100MG TAB PRN SUBCUTANEOUS PRN/H/A TAKING POTASSIUM CHLORIDE 10 10 MEQ TABLET 1 TAB ORAL ONCE DAILY TAKING DIOVAN 320 MG TABLET 1 TABLET ORALLY ONCE A DAY TAKING DEXILANT 60 MG CAPSULE DELAYED RELEASE 1 CAPSULE ORALLY ONCE A DAY TAKING CALCIUM MAGNESIUM PLUS ZINC 1 CAP ORALLY DAILY TAKING MELATONIN 5 MG TABLET 2 TABLETS AT BEDTIME NEEDED WITH FOOD ORALLY ONCE A DAY TAKING CYMBALTA 60 MG CAPSULE DELAYED RELEASE PARTICLES 1 CAPSULE ORALLY TWICE DAILY TAKING LYRICA 100 MG CAPSULE 1 CAPSULE ORALLY BID FOR PAIN TAKING LYRICA 50 MG CAPSULE 1 CAPSULE ORALLY THREE TIMES A DAY TAKING IMITREX 100 MG TABLET 1 TABLET NEEDED ORALLY TWICE A DAY TAKING METHADONE HCL 10 MG TABLET 2 ORALLY 2TAB Q8H MDD6 TAKING NORCO 10-325 MG TABLET 1 ORALLY EVERY 6 HRS MDD4 NOT-TAKING TRAZODONE HCL 50 MG TABLET 1 TABLET AT BEDTIME NEEDED ORALLY ONCE A DAY NOT-TAKING PAXIL 20 MG TABLET 1 TABLET IN THE MORNING ORALLY ONCE A DAY NOT-TAKING CEPHALEXIN 500 MG CAPSULE 1 CAPSULE ORALLY TWICE A DAY NOT-TAKING FLUCONAZOLE 100 MG TABLET 1 TABLET ORALLY DAILY NOT-TAKING HYDROXYZINE PAMOATE 25 MG CAPSULE 1-2 CAPSULE NEEDED ORALLY BEFORE BEDTIME NOT-TAKING NORCO 10-325 MG TABLET 1 TABLET NEEDED ORALLY Q6H PRN MDD4 NOT-TAKING HYDROCODONE-ACETAMINOPHEN 10-325 TABLET 1 TAB ORALLY EVERY 6 HRS PRN FOR PAIN MDD4, NOTES: 1455 NOT-TAKING NORCO 10-325 MG TABLET 1 TABLET NEEDED ORALLY Q 4-6 HRS MDD=6 NOT-TAKING NORCO 10-325 MG TABLET 1 TABLET NEEDED ORALLY EVERY 6 HRS PRN MDD4 NOT-TAKING GARLIC - CAPSULE 1 CAP ORALLY DAILY NOT-TAKING MAY HAVE TUMERIC 1 CAP ORALLY DAILY NOT-TAKING HYDROXYZINE HCL 25 MG TABLET 1 TABLET NEEDED ORALLY EVERY 8 HRS FOR ITCHING NOT-TAKING LYRICA 50 MG CAPSULE ORALLY TID NOT-TAKING DOXYCYCLINE HYCLATE 100 MG CAPSULE 1 CAPSULE ORALLY EVERY 12 HRS MEDICATION LIST REVIEWED AND RECONCILED WITH THE PATIENT PAST MEDICAL HISTORY SEASONAL ALLERGIES ENVIRONMENTAL ALLERGIES INTERSTITIAL CYSTITIS ULCERATIVE COLITIS HYPERTENSION MIGRAINE HEADACHE, CLUSTER CUELLAR 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 TAKES METHODONE, CAN'T TAKE: CONTRAINDICATION SOCIAL HISTORY GENERAL: TOBACCO USE ARE YOU A:FORMER SMOKER HOW LONG HAS IT BEEN SINCE YOU LAST SMOKED?> 10 YEARS HOLINESS [id number] BUDDHISM LANGUAGE LANGUAGES SPOKEN:GREEK LEARNING BARRIERS / SPECIAL NEEDS BARRIERS TO LEARNING?NO HEARING IMPAIRED?NO VISION IMPAIRED?YES COGNITIVELY IMPAIRED?NO READINESS TO LEARN?YES LEARNING PREFERENCES?NO LEARNING CAPABILITIES PRESENT?YES EMOTIONAL BARRIERS?NO SPECIAL DEVICES?NO CLIENT SERVICES ASSISTANT NEEDED?NO PAIN CLINIC PFS, CLERGY, PUBLIC HEALTH REFERRALS PFS REFERRAL NEEDED?NO CLERGY REFERRAL NEEDED?NO PUBLIC HEALTH REFERRAL NEEDED?NO WAS THE PROVIDER NOTIFIED OF ANY PERTINENT INFO?NO HAS THE PATIENT BEEN EDUCATED REGARDING HIS/HER PLAN OF CARE?YES HAS THE PATIENT BEEN EDUCATED REGARDING PAIN, THE RISK FOR PAIN, THE IMPORTANCE OF EFFECTIVE PAIN MANAGEMENT, AND THE PAIN ASSESSMENT PROCESS?YES PATIENT: ____. REVIEW OF SYSTEMS REVIEWED BY: PROVIDER: JOSAFAT ADLER . CONSTITUTIONAL: ANY CHANGE IN YOUR MEDICAL CONDITION? NO . CHILLS NO . FEVER NO . INFECTION: DO YOU HAVE NEW INFECTIONS? NO . DO YOU HAVE HISTORY OF MRSA? NO . MUSCULOSKELETAL: ANY NEW PATTERNS OF PAIN OR NUMBNESS? NO . GASTROENTEROLOGY: ANY NEW CHANGE IN BOWEL CONTROL? NO . GENITOURINARY: ANY NEW CHANGE IN BLADDER CONTROL? NO . IS THERE A CHANCE YOU COULD BE ? NO . HEMATOLOGY/LYMPH: DO YOU TAKE ANY BLOOD THINNERS? (FOR EXAMPLE- COUMADIN, PLAVIX, AGGRENOX, PLATEL, PRADAXA, OR XARELTO) NO . WHEN WAS YOUR LAST DOSE? DATE: TIME: . NEUROLOGY: HAVE YOU FALLEN IN THE PAST 6 MONTHS? NO . ANY NEW EXTREMITY NUMBNESS OR WEAKNESS? NO . CARDIOLOGY: DO YOU HAVE A PACEMAKER OR DEFIBRILLATOR? NO . RESPIRATORY: HAVE YOU BEEN SICK IN THE PAST WEEK? YES, GLANDS SWOLLEN . FEVER NO . FLU LIKE SYMPTOMS? NO . COUGH NO . INTEGUMENTARY: DO YOU HAVE ANY RASHES OR OPEN SORES? YES ON HEAD . ALLERGIC/IMMUNO: ARE YOU ALLERGIC TO SHELLFISH OR IV DYE? NO . ANY NEW ALLERGIES? NO . PSYCHIATRIC: DO YOU HAVE THOUGHTS OF HURTING YOURSELF OR SOMEONE ELSE? NO . ARE YOU ABUSED, NEGLECTED, OR IN AN UNSAFE ENVIRONMENT? NO . ENDOCRINOLOGY: ARE YOU DIABETIC? NO . OTHER: DO YOU NEED ANY PRESCRIPTIONS? YES . IF YES, PLEASE LIST: METHADONE AND HYDROCODONE . ANY NEW PROBLEMS WITH YOUR MEDICATIONS? NO . WHEN DID YOU LAST EAT? ____ . WHEN DID YOU LAST DRINK? ____ . WHAT DID YOU LAST DRINK? ____ . NAME OF PERSON DRIVING YOU HOME? ____ . DO YOU HAVE ANY OTHER QUESTIONS OR CONCERNS NO . VITAL SIGNS WT 195 LBS, HT 62 1/2, BMI 35.09 INDEX, BP 149/96 MM HG, HR 92 /MIN, RR 18 /MIN, TEMP 97.5 F, OXYGEN SAT % 97%, REVIEWED BY: ABRAHAM. EXAMINATION GENERAL EXAMINATION: GENERAL APPEARANCE:SEVERE DISCOMFORT WITH INTERMITTENT EPISODES OF LEFT FACIAL,EYE AND NECK JERKING TWITCH.BECOMES TEARFUL WITH REPORTS OF INCREASE IN SEVERE PAIN DURING THESE JERKING MOVEMENTS.. HEENT:PUPILS EQUAL AND REACTIVE TO LIGHT (AYANA).HYPER SENSITIVE TO LIGHT TOUCH LEFT FACE AND HEAD.TENDER OVER LEFT OCCIPITAL AREA AND SCAR IN THIS AREA.. NECK:NO LYMPHADENOPATHY. LUNGS:LUNG SOUNDS ARE CLEAR. HEART:HEART RATE REGULAR. MUSCULOSKELETAL:*. NEUROLOGIC EXAM:DTRS 1-2+ IN ALL 4 EXTREMITIES, MOTOR STRENGTH - 5/5 UPPER AND LOWER EXTREMITIES. 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 BRINGS IN MEDICATIONS WHICH IS APPROPRIATE FOR WHAT WAS DISPENSED. RECENT URINE TOXICOLOGY REVIEWED. NO UNAUTHORIZED MEDICATIONS. NO ILLICIT SUBSTANCES AND PRESCRIBED MEDICATIONS WERE PRESENT. , RISKS AND BENEFITS OF NARCOTIC/OPIOD MEDICATIONS WERE REVIEWED WITH PATIENT - THIS INCLUDES BUT IS NOT LIMITED TO RISK OF DEPENDANCE/DEVELOPMENT OF ADDICTION, MOOD DISTURBANCE AND DEPRESSION, OSTEOPOROSIS, HORMONAL AND LABIDAL CHANGES, RESPIRATORY DEPRESSION AND . PATIENT IS ADVISED NOT TO DRIVE WHILE ON THESE MEDICATIONSURINE TOX TODAY. PROCEDURE CODES FA211 ESTABILISHED PATIENT [facility] FACILITY CHARGE M8418 PAIN ASSESS POS TOOL F/U PLAN DOC G8427 DOC MEDS VERIFIED W/PT OR RE DISPOSITION & COMMUNICATION FOLLOW UP 4 WEEKS ELECTRONICALLY SIGNED BY NAYELY ODOM ON 12/18/2016 AT 06:34 PM EDT DISCLAIMER : THIS IS A VISIT SUMMARY EXTRACTED FROM THE [employer] CHART. IT IS NOT A COPY OF THE [employer] PROGRESS NOTE. BLANCA
== END ==
LOC: M PAIN 14:30
PROVIDERS: ATTEND Nurse Practitioner Family
DX: G89.29 Other chronic pain (principal); G50.0 Trigeminal neuralgia; J30.2 Other seasonal allergic rhinitis; I10 Essential (primary) hypertension; B35.0 Tinea barbae and tinea capitis; K22.70 Barrett's esophagus without dysplasia; M79.7 Fibromyalgia; Z87.891 Personal history of nicotine dependence; Z79.899 Other long term (current) drug therapy; Z88.8 Allergy status to other drugs, medicaments and biological substances; Z91.048 Other nonmedicinal substance allergy status

== ENCOUNTER → 2017-01-07 | Outpatient (CLI) | payer MEDICARE, MEDICAID ==
--- NOTE | 2017-01-27 02:28 | ECWPNPC ---
PATIENT NAME: FATIMAH DEL VALLE : 1970 GENDER: FEMALE VISIT DATE: 01/07/2017 DISCHARGE DATE: 01/07/17 1423 VISIT LOCKED DATE TIME: PHYSICIAN: JOSAFAT ARRIAGA RESOURCE: JOSAFAT ARRIAGA REASON FOR APPOINTMENT 1. HEAD HISTORY OF PRESENT ILLNESS HISTORY OF PRESENT ILLNESS: HERE FOR F/U AND MANAGEMENT OF PERSISTENT HEAD AND NECK PAIN.THIS IS A ONE MONTH FOLLOW UP AND MEDICINE MANAGEMENT .WE ARE IN PROCESS OF REDUCING AND DISCONTINUING METHADONE.AT LAST VISIT WE REDUCED METHADONE BY 10MG.SHE DID WELL WITH THIS AND VOICES DESIRE TO GET RID OF METHADONE.CONTINUES WITH LESIONS ON HEAD AND SCALP.RATING PAIN VAS 4/10. PAIN THE PATIENT DESCRIBES THE PAIN... FALL RISK SCREENING: SCREENING :NO FALLS IN THE PAST YEAR CURRENT MEDICATIONS TAKING HYDROXYZINE HCL 25 MG TABLET 1 TABLET NEEDED ORALLY AT NIGHT NEEDED TAKING VITAMIN B COMPLEX - TABLET 1 TAB ORALLY DAILY TAKING TEGRETOL XR 200 MG TABLET EXTENDED RELEASE 12 HOUR 2 TABS IN AM, 3 TABS IN PM ORALLY DIRECTED/DR. LAGOS TAKING TOPAMAX 50 50MG TABLET 3 TABLETS ORAL TWICE DAILY TAKING RANITIDINE HCL 150 MG TABLET 1 CAPSULE AT BEDTIME ORALLY ONCE A DAY TAKING VERAPAMIL HCL ER 300 MG CAPSULE EXTENDED RELEASE 24 HOUR 1 CAPSULE ORALLY BEFORE BEDTIME TAKING HYDROCHLOROTHIAZIDE 12.5 12.5MG TABLET 1 TAB(S) ORAL DAILY TAKING MULTIVITAMINS TABLET 1 TAB ORALLY DAILY TAKING ELMIRON 100 MG CAPSULE 1 CAPSULE ON AN EMPTY STOMACH ORALLY THREE TIMES A DAY TAKING IMITREX STATDOSE SYSTEM 6 MG/0.5ML KIT ALSO TAKES 100MG TAB PRN SUBCUTANEOUS PRN/H/A TAKING POTASSIUM CHLORIDE 10 10 MEQ TABLET 1 TAB ORAL ONCE DAILY TAKING DIOVAN 320 MG TABLET 1 TABLET ORALLY ONCE A DAY TAKING DEXILANT 60 MG CAPSULE DELAYED RELEASE 1 CAPSULE ORALLY ONCE A DAY TAKING CALCIUM MAGNESIUM PLUS ZINC 1 CAP ORALLY DAILY TAKING MELATONIN 5 MG TABLET 2 TABLETS AT BEDTIME NEEDED WITH FOOD ORALLY ONCE A DAY TAKING CYMBALTA 60 MG CAPSULE DELAYED RELEASE PARTICLES 1 CAPSULE ORALLY TWICE DAILY TAKING IMITREX 100 MG TABLET 1 TABLET NEEDED ORALLY TWICE A DAY TAKING LYRICA 100 MG CAPSULE 1 CAPSULE ORALLY BID FOR PAIN TAKING LYRICA 50 MG CAPSULE 1 CAPSULE ORALLY THREE TIMES A DAY TAKING METHADONE HCL 10 MG TABLET 2 ORALLY 2TAB AM,[id number] AND 1 AT HS MDD5 TAKING NORCO 10-325 MG TABLET 1 ORALLY EVERY 6 HRS MDD4 NOT-TAKING TRAZODONE HCL 50 MG TABLET 1 TABLET AT BEDTIME NEEDED ORALLY ONCE A DAY NOT-TAKING PAXIL 20 MG TABLET 1 TABLET IN THE MORNING ORALLY ONCE A DAY NOT-TAKING CEPHALEXIN 500 MG CAPSULE 1 CAPSULE ORALLY TWICE A DAY NOT-TAKING FLUCONAZOLE 100 MG TABLET 1 TABLET ORALLY DAILY NOT-TAKING HYDROXYZINE PAMOATE 25 MG CAPSULE 1-2 CAPSULE NEEDED ORALLY BEFORE BEDTIME NOT-TAKING NORCO 10-325 MG TABLET 1 TABLET NEEDED ORALLY Q6H PRN MDD4 NOT-TAKING HYDROCODONE-ACETAMINOPHEN 10-325 TABLET 1 TAB ORALLY EVERY 6 HRS PRN FOR PAIN MDD4, NOTES: 1455 NOT-TAKING NORCO 10-325 MG TABLET 1 TABLET NEEDED ORALLY Q 4-6 HRS MDD=6 NOT-TAKING NORCO 10-325 MG TABLET 1 TABLET NEEDED ORALLY EVERY 6 HRS PRN MDD4 NOT-TAKING GARLIC - CAPSULE 1 CAP ORALLY DAILY NOT-TAKING MAY HAVE TUMERIC 1 CAP ORALLY DAILY NOT-TAKING HYDROXYZINE HCL 25 MG TABLET 1 TABLET NEEDED ORALLY EVERY 8 HRS FOR ITCHING NOT-TAKING LYRICA 50 MG CAPSULE ORALLY TID NOT-TAKING DOXYCYCLINE HYCLATE 100 MG CAPSULE 1 CAPSULE ORALLY EVERY 12 HRS MEDICATION LIST REVIEWED AND RECONCILED WITH THE PATIENT PAST MEDICAL HISTORY SEASONAL ALLERGIES ENVIRONMENTAL ALLERGIES INTERSTITIAL CYSTITIS ULCERATIVE COLITIS HYPERTENSION MIGRAINE HEADACHE, CLUSTER CUELLAR 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 TAKES METHODONE, CAN'T TAKE: CONTRAINDICATION SOCIAL HISTORY GENERAL: TOBACCO USE ARE YOU A:FORMER SMOKER HOW LONG HAS IT BEEN SINCE YOU LAST SMOKED?> 10 YEARS SIKHISM [id number] YARSANISM LANGUAGE LANGUAGES SPOKEN:ST HELENIAN LEARNING BARRIERS / SPECIAL NEEDS CHANGE FROM LAST VISIT?NO BARRIERS TO LEARNING?NO HEARING IMPAIRED?NO VISION IMPAIRED?YES COGNITIVELY IMPAIRED?NO READINESS TO LEARN?YES LEARNING PREFERENCES?NO LEARNING CAPABILITIES PRESENT?YES EMOTIONAL BARRIERS?NO SPECIAL DEVICES?NO COTTON GINNER HELPER NEEDED?NO PAIN CLINIC PFS, CLERGY, PUBLIC HEALTH REFERRALS PFS REFERRAL NEEDED?NO CLERGY REFERRAL NEEDED?NO PUBLIC HEALTH REFERRAL NEEDED?NO WAS THE PROVIDER NOTIFIED OF ANY PERTINENT INFO?NO HAS THE PATIENT BEEN EDUCATED REGARDING HIS/HER PLAN OF CARE?YES HAS THE PATIENT BEEN EDUCATED REGARDING PAIN, THE RISK FOR PAIN, THE IMPORTANCE OF EFFECTIVE PAIN MANAGEMENT, AND THE PAIN ASSESSMENT PROCESS?YES PATIENT: ____. REVIEW OF SYSTEMS REVIEWED BY: PROVIDER: JOSAFAT ADLER . CONSTITUTIONAL: ANY CHANGE IN YOUR MEDICAL CONDITION? NO . CHILLS NO . FEVER NO . INFECTION: DO YOU HAVE NEW INFECTIONS? NO . DO YOU HAVE HISTORY OF MRSA? NO . MUSCULOSKELETAL: ANY NEW PATTERNS OF PAIN OR NUMBNESS? NO . GASTROENTEROLOGY: ANY NEW CHANGE IN BOWEL CONTROL? NO . GENITOURINARY: ANY NEW CHANGE IN BLADDER CONTROL? NO . IS THERE A CHANCE YOU COULD BE ? NO . HEMATOLOGY/LYMPH: DO YOU TAKE ANY BLOOD THINNERS? (FOR EXAMPLE- COUMADIN, PLAVIX, AGGRENOX, PLATEL, PRADAXA, OR XARELTO) NO . WHEN WAS YOUR LAST DOSE? DATE: TIME: . NEUROLOGY: HAVE YOU FALLEN IN THE PAST 6 MONTHS? NO . ANY NEW EXTREMITY NUMBNESS OR WEAKNESS? NO . CARDIOLOGY: DO YOU HAVE A PACEMAKER OR DEFIBRILLATOR? NO . RESPIRATORY: HAVE YOU BEEN SICK IN THE PAST WEEK? NO . FEVER NO . FLU LIKE SYMPTOMS? NO . COUGH NO . INTEGUMENTARY: DO YOU HAVE ANY RASHES OR OPEN SORES? YES, ON SCALP AND LEFT LOWER LEG . ALLERGIC/IMMUNO: ARE YOU ALLERGIC TO SHELLFISH OR IV DYE? NO . ANY NEW ALLERGIES? NO . PSYCHIATRIC: DO YOU HAVE THOUGHTS OF HURTING YOURSELF OR SOMEONE ELSE? NO . ARE YOU ABUSED, NEGLECTED, OR IN AN UNSAFE ENVIRONMENT? NO . ENDOCRINOLOGY: ARE YOU DIABETIC? NO . OTHER: DO YOU NEED ANY PRESCRIPTIONS? YES . IF YES, PLEASE LIST: METHADONE WILL BE NEEDED IN 3 DAYS. HYDROCODONE WILL BE NEEDED IN 10 DAYS. . ANY NEW PROBLEMS WITH YOUR MEDICATIONS? NO . WHEN DID YOU LAST EAT? ____ . WHEN DID YOU LAST DRINK? ____ . WHAT DID YOU LAST DRINK? ____ . NAME OF PERSON DRIVING YOU HOME? ____ . DO YOU HAVE ANY OTHER QUESTIONS OR CONCERNS NO . VITAL SIGNS WT 180 LBS, HT 62 1/2, BMI 32.39 INDEX, BP 135/88 MM HG, HR 101 /MIN, RR 18 /MIN, TEMP 97.8 F, OXYGEN SAT % 98%, NA INITIALS AW 1334, REVIEWED BY: CS. EXAMINATION GENERAL EXAMINATION: GENERAL APPEARANCE:COMFORTABLE. PSYCHAFFECT NORMAL.POSITIVE. NECK:TRACHEA MIDLINE. NO CERVICAL OR SUPRACLAVICULAR LYMPHADENOPATHY NOTED. LUNGS:LUNG MONTIEL ARE CLEAR TO AUSCULTATION BILATERALLY. GOOD MOVEMENT OF AIR. HEART:S1, S2 IN A REGULAR RATE AND RHYTHM. NO SIGNIFICANT MURMURS, RUBS OR GALLOPS NOTED. 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 BRINGS IN MEDICATIONS WHICH IS APPROPRIATE FOR WHAT WAS DISPENSED. RECENT URINE TOXICOLOGY REVIEWED. NO UNAUTHORIZED MEDICATIONS. NO ILLICIT SUBSTANCES AND PRESCRIBED MEDICATIONS WERE PRESENT. , RISKS AND BENEFITS OF NARCOTIC/OPIOD MEDICATIONS WERE REVIEWED WITH PATIENT - THIS INCLUDES BUT IS NOT LIMITED TO RISK OF DEPENDANCE/DEVELOPMENT OF ADDICTION, MOOD DISTURBANCE AND DEPRESSION, OSTEOPOROSIS, HORMONAL AND LABIDAL CHANGES, RESPIRATORY DEPRESSION AND . PATIENT IS ADVISED NOT TO DRIVE WHILE ON THESE MEDICATIONS. PREVENTIVE MEDICINE PAIN CLINIC TEACHING: MEDICATIONS DISCUSSED WITH PATIENT CHANGES IN MEDICATIONS PER ORDER.. PROCEDURE CODES FA211 ESTABILISHED PATIENT [facility] CHARGE G8730 PAIN ASSESS POS TOOL F/U PLAN DOC G8427 DOC MEDS VERIFIED W/PT OR RE DISPOSITION & COMMUNICATION FOLLOW UP 4 WEEKS ELECTRONICALLY SIGNED BY NAYELY ODOM ON 01/26/2017 AT 07:49 AM EDT DISCLAIMER : THIS IS A VISIT SUMMARY EXTRACTED FROM THE [facility] CHART. IT IS NOT A COPY OF THE [facility] PROGRESS NOTE. MTDD
== END ==
LOC: M PAIN 13:15
PROVIDERS: ATTEND Nurse Practitioner Family
DX: G89.29 Other chronic pain (principal); G50.0 Trigeminal neuralgia; J30.2 Other seasonal allergic rhinitis; I10 Essential (primary) hypertension; G44.009 Cluster headache syndrome, unspecified, not intractable; Q61.3 Polycystic kidney, unspecified; K22.70 Barrett's esophagus without dysplasia; M79.7 Fibromyalgia; L20.9 Atopic dermatitis, unspecified; Z87.891 Personal history of nicotine dependence; Z79.891 Long term (current) use of opiate analgesic; Z79.899 Other long term (current) drug therapy; Z88.1 Allergy status to other antibiotic agents; Z91.048 Other nonmedicinal substance allergy status

== ENCOUNTER → 2017-02-16 | Outpatient (CLI) | payer MEDICARE, MEDICAID ==
[~2017-02-16] MED LIST changes: +BUPIVACAINE HCL 0.25% 30 ML VIAL As Ordered ONE; +TRIAMCINOLONE ACETONIDE SUSP 40 MG/ML VIAL (J3301) As Ordered ONE; +diazePAM 5 MG TAB As Ordered ONE; +oxyCODONE 5MG TAB As Ordered ONE
--- NOTE | 2017-03-03 01:08 | ECWPNPC ---
PATIENT NAME: FATIMAH DEL VALLE : 1970 GENDER: FEMALE VISIT DATE: 02/16/2017 DISCHARGE DATE: 02/16/17 1452 VISIT LOCKED DATE TIME: PHYSICIAN: JOSELITO TIMMONS RESOURCE: JOSELITO TIMMONS REASON FOR APPOINTMENT 1. ILATERAL SUPRA ORBITAL AND MAXILLARY NERVE BLOCK HISTORY OF PRESENT ILLNESS HISTORY OF PRESENT ILLNESS: PAIN THE PATIENT DESCRIBES THE PAIN... FALL RISK SCREENING: SCREENING :NO FALLS IN THE PAST YEAR CURRENT MEDICATIONS TAKING HYDROXYZINE HCL 25 MG TABLET 1 TABLET NEEDED ORALLY AT NIGHT NEEDED, NOTES: 02/15/171999 TAKING TEGRETOL XR 200 MG TABLET EXTENDED RELEASE 12 HOUR 2 TABS IN AM, 3 TABS IN PM ORALLY DIRECTED/DR. LAGOS, NOTES: 02/16/17699 TAKING TOPAMAX 50 50MG TABLET 3 TABLETS ORAL TWICE DAILY, NOTES: 02/16/17699 TAKING RANITIDINE HCL 150 MG TABLET 1 CAPSULE AT BEDTIME ORALLY ONCE A DAY, NOTES: 02/15/171999 TAKING VERAPAMIL HCL ER 300 MG CAPSULE EXTENDED RELEASE 24 HOUR 1 CAPSULE ORALLY BEFORE BEDTIME, NOTES: 02/15/171999 TAKING HYDROCHLOROTHIAZIDE 12.5 12.5MG TABLET 1 TAB(S) ORAL DAILY, NOTES: 02/16/17699 TAKING ELMIRON 100 MG CAPSULE 1 CAPSULE ON AN EMPTY STOMACH ORALLY THREE TIMES A DAY, NOTES: 02/16/17699 TAKING IMITREX STATDOSE SYSTEM 6 MG/0.5ML KIT ALSO TAKES 100MG TAB PRN SUBCUTANEOUS PRN/H/A, NOTES: 02/15/17999 TAKING POTASSIUM CHLORIDE 10 10 MEQ TABLET 1 TAB ORAL ONCE DAILY, NOTES: 02/16/17699 TAKING DIOVAN 320 MG TABLET 1 TABLET ORALLY ONCE A DAY, NOTES: 02/16/17699 TAKING DEXILANT 60 MG CAPSULE DELAYED RELEASE 1 CAPSULE ORALLY ONCE A DAY, NOTES: 02/16/17699 TAKING MELATONIN 5 MG TABLET 2 TABLETS AT BEDTIME NEEDED WITH FOOD ORALLY ONCE A DAY, NOTES: 02/15/171999 TAKING CYMBALTA 60 MG CAPSULE DELAYED RELEASE PARTICLES 1 CAPSULE ORALLY TWICE DAILY, NOTES: 02/16/17699 TAKING IMITREX 100 MG TABLET 1 TABLET NEEDED ORALLY TWICE A DAY, NOTES: 02/14/17999 TAKING LYRICA 100 MG CAPSULE 1 CAPSULE ORALLY BID FOR PAIN, NOTES: 02/16/17 0700 TAKING LYRICA 50 MG CAPSULE 1 CAPSULE ORALLY THREE TIMES A DAY, NOTES: 02/16/17 0700 TAKING METHADONE HCL 10 MG TABLET 1-2 TAB DIRECTED ORALLY Q8H TID MDD3, NOTES: 02/16/17 0700 TAKING NORCO 10-325 MG TABLET 1 ORALLY EVERY 6 HRS MDD4, NOTES: 02/15/17 1400 TAKING TIZANIDINE HCL 4 MG TABLET 1 TABLET NEEDED ORALLY Q8H PRN, NOTES: 02/15/17 2000 NOT-TAKING VITAMIN B COMPLEX - TABLET 1 TAB ORALLY DAILY NOT-TAKING MULTIVITAMINS TABLET 1 TAB ORALLY DAILY NOT-TAKING CALCIUM MAGNESIUM PLUS ZINC 1 CAP ORALLY DAILY NOT-TAKING TRAZODONE HCL 50 MG TABLET 1 TABLET AT BEDTIME NEEDED ORALLY ONCE A DAY NOT-TAKING PAXIL 20 MG TABLET 1 TABLET IN THE MORNING ORALLY ONCE A DAY NOT-TAKING CEPHALEXIN 500 MG CAPSULE 1 CAPSULE ORALLY TWICE A DAY NOT-TAKING FLUCONAZOLE 100 MG TABLET 1 TABLET ORALLY DAILY NOT-TAKING HYDROXYZINE PAMOATE 25 MG CAPSULE 1-2 CAPSULE NEEDED ORALLY BEFORE BEDTIME NOT-TAKING NORCO 10-325 MG TABLET 1 TABLET NEEDED ORALLY Q6H PRN MDD4 NOT-TAKING HYDROCODONE-ACETAMINOPHEN 10-325 TABLET 1 TAB ORALLY EVERY 6 HRS PRN FOR PAIN MDD4, NOTES: 1455 NOT-TAKING NORCO 10-325 MG TABLET 1 TABLET NEEDED ORALLY Q 4-6 HRS MDD=6 NOT-TAKING NORCO 10-325 MG TABLET 1 TABLET NEEDED ORALLY EVERY 6 HRS PRN MDD4 NOT-TAKING GARLIC - CAPSULE 1 CAP ORALLY DAILY NOT-TAKING MAY HAVE TUMERIC 1 CAP ORALLY DAILY NOT-TAKING HYDROXYZINE HCL 25 MG TABLET 1 TABLET NEEDED ORALLY EVERY 8 HRS FOR ITCHING NOT-TAKING LYRICA 50 MG CAPSULE ORALLY TID NOT-TAKING DOXYCYCLINE HYCLATE 100 MG CAPSULE 1 CAPSULE ORALLY EVERY 12 HRS MEDICATION LIST REVIEWED AND RECONCILED WITH THE PATIENT PAST MEDICAL HISTORY SEASONAL ALLERGIES ENVIRONMENTAL ALLERGIES INTERSTITIAL CYSTITIS ULCERATIVE COLITIS HYPERTENSION MIGRAINE HEADACHE, CLUSTER CUELLAR 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 TAKES METHODONE, CAN'T TAKE: CONTRAINDICATION REVIEW OF SYSTEMS REVIEWED BY: PROVIDER: . CONSTITUTIONAL: ANY CHANGE IN YOUR MEDICAL CONDITION? NO . CHILLS NO . FEVER NO . INFECTION: DO YOU HAVE NEW INFECTIONS? NO . DO YOU HAVE HISTORY OF MRSA? NO . MUSCULOSKELETAL: ANY NEW PATTERNS OF PAIN OR NUMBNESS? YES, BURNING PAIN IN HANDS AND FINGERS, MOSTLY LEFT SIDE AND SHOOTING UP BACK OF NECK INTO HEAD THROUGH TO EYES. GETTING "JOLTS" AND JERKY MOVEMENTS OF LEFT HAND AND ARM. . GASTROENTEROLOGY: ANY NEW CHANGE IN BOWEL CONTROL? NO . GENITOURINARY: ANY NEW CHANGE IN BLADDER CONTROL? NO . IS THERE A CHANCE YOU COULD BE ? NO . HEMATOLOGY/LYMPH: DO YOU TAKE ANY BLOOD THINNERS? (FOR EXAMPLE- COUMADIN, PLAVIX, AGGRENOX, PLATEL, PRADAXA, OR XARELTO) NO . WHEN WAS YOUR LAST DOSE? DATE: TIME: . NEUROLOGY: HAVE YOU FALLEN IN THE PAST 6 MONTHS? NO . ANY NEW EXTREMITY NUMBNESS OR WEAKNESS? NO . CARDIOLOGY: DO YOU HAVE A PACEMAKER OR DEFIBRILLATOR? NO . RESPIRATORY: HAVE YOU BEEN SICK IN THE PAST WEEK? NO . FEVER NO . FLU LIKE SYMPTOMS? NO . COUGH NO . INTEGUMENTARY: DO YOU HAVE ANY RASHES OR OPEN SORES? YES . ALLERGIC/IMMUNO: ARE YOU ALLERGIC TO SHELLFISH OR IV DYE? NO . ANY NEW ALLERGIES? NO . PSYCHIATRIC: DO YOU HAVE THOUGHTS OF HURTING YOURSELF OR SOMEONE ELSE? NO . ARE YOU ABUSED, NEGLECTED, OR IN AN UNSAFE ENVIRONMENT? NO . ENDOCRINOLOGY: ARE YOU DIABETIC? NO . OTHER: DO YOU NEED ANY PRESCRIPTIONS? NO . IF YES, PLEASE LIST: ____ . ANY NEW PROBLEMS WITH YOUR MEDICATIONS? NO . WHEN DID YOU LAST EAT? 02/15/17 . WHEN DID YOU LAST DRINK? 1000 . WHAT DID YOU LAST DRINK? WATER . NAME OF PERSON DRIVING YOU HOME? SON, ED . DO YOU HAVE ANY OTHER QUESTIONS OR CONCERNS NO . VITAL SIGNS WT 185.0 LBS, HT 62 1/2, BMI 33.29 INDEX, BP 171/96 MM HG, REPEAT BP 132/94 MANUAL, HR 107 /MIN, RR 16 /MIN, TEMP 96.8 F, OXYGEN SAT % 98%, NA INITIALS TL 1152, REVIEWED BY: LS. 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 TREATMENT OTHERS NOTES: PRE-PROCEDURE DIAGNOSIS: FACIAL NEURALGIA, TRIGEMINAL NEURALGIA, CHRONIC HEADACHES POST-PROCEDURE DIAGNOSIS: FACIAL NEURALGIA, TRIGEMINAL NEURALGIA, CHRONIC HEADACHESPROCEDURE: RIGHT AND LEFT SUPRAORBITAL NERVE BLOCK, RIGHT AND LEFT MAXILLARY NERVE BLOCK SURGEON: JOSELITO TIMMONS MDANESTHESIA: LOCALCOMPLICATIONS: NONEPRE-PROCEDURE NOTE: THE PATIENT IS SUFFERING OF CHRONIC FACIAL PAIN AND NEURALGIA. SHE HAS HISTORY OF TRIGEMINAL NEURALGIA. SHE HAS DONE MULTIPLE INTERVENTIONS INCLUDING CRANIAL SURGERY AND THE PAIN HAS PERSISTED. PRESENTLY SHE CAN NOT PERFORM NORMAL ACTIVITIES. SHE HAS SEVERE FACIAL PAIN AND NEURALGIAS AND SEVERE HEADACHES. AT THE CLINIC TODAY THE PATIENT IS MOVING HER FACIAL MUSCLES CONSTANTLY DUE TO LANCINATING PAIN AND DISCOMFORT. I HAVE PERFORMED IN THE PATIENT TODAYS PROCEDURE IN THE PAST THAT HAS PROVIDE TO HER AT LEAST A MONTH OF PAIN RELIEF. SHE WANTS TO HAVE THIS PROCEDURE DONE TODAY AGAIN. I WENT THOUGHT THE RISK ALTERNATIVES AND BENEFITS ASSOCIATED WITH THIS PROCEDURE AND THE PATIENT EXPRESS SHE WANTS TO MOVE FORWARD. PROCEDURE NOTE: AFTER CONSENT WAS REVIEWED WITH THE PATIENT SHE WAS BROUGHT TO THE PROCEDURE ROOM AND PLACED IN THE SUPINE POSITION. THE RIGHT AND LEFT SUPRAORBITAL AND MAXILLARY AREA WAS CLEANED WITH ALCOHOL SOLUTION. USING A 30GAUGE NEEDLE I INJECT THE RIGHT AND LEFT SUPRAORBITAL AREA 0.5 CM ABOVE THE MEDIAL ASPECT OF THE EYEBROW WITH 3 CC OF BUPIVACAINE 0.125% AND KENALOG 5MG AT EACH LOCATION. THEN I INJECTED THE RIGHT AND LEFT MAXILLARY NERVE AREA 3 CC OF BUPIVACAINE 0.125% AND KENALOG 5MG AT EACH LOCATION APPROXIMATELY 1 INCH CAUDAL OF A VERTICAL LINE FROM THE PATIENTS PUPILS. THERE WAS NO EVIDENCE OF BLOOD, PARESTHESIA OR ANY COMPLICATION DURING THE PROCEDURE. POST-PROCEDURE NOTE: I DISCUSSED ALTERNATIVES WITH THE PATIENT. I AM LOOKING FOR LONG LASTING PAIN RELIEF WITH THIS INTERVENTION. THE PATIENT REPORTS UNDERSTANDING AND AGREES. IN THE MEANTIME I WILL SEE HER AGAIN IN THE NEXT MONTH. INSTRUCTIONS WERE GIVEN, QUESTIONS WERE ANSWERED AND THE PATIENT REPORTS UNDERSTANDING. I, FABRICIO DAI, DOCUMENTED THE ABOVE INFORMATION ACTING A SCRIBE FOR DR. TIMMONS. I HAVE REVIEWED THE ABOVE DOCUMENT, WRITTEN BY FABRICIO ROWAN AND I VERIFY THAT IT IS ACCURATE. DISPOSITION & COMMUNICATION FOLLOW UP 3 WEEKS ELECTRONICALLY SIGNED BY JOSELITO TIMMONS MD ON 03/02/2017 AT 11:09 AM EST DISCLAIMER : THIS IS A VISIT SUMMARY EXTRACTED FROM THE [employer] CHART. IT IS NOT A COPY OF THE [employer] PROGRESS NOTE. BLANCA
== END ==
LOC: M PAIN 11:45
PROVIDERS: ATTEND Anesthesiology
DX: G89.29 Other chronic pain (principal); G50.1 Atypical facial pain; G51.9 Disorder of facial nerve, unspecified; G50.0 Trigeminal neuralgia; F41.1 Generalized anxiety disorder; J30.89 Other allergic rhinitis; I10 Essential (primary) hypertension; L23.1 Allergic contact dermatitis due to adhesives; Z88.1 Allergy status to other antibiotic agents; F11.20 Opioid dependence, uncomplicated; Z79.891 Long term (current) use of opiate analgesic; Z79.899 Other long term (current) drug therapy
CPT/HCPCS: 64400; 77002; J3301

== ENCOUNTER → 2017-03-05 | Outpatient (CLI) | payer MEDICARE, MEDICAID ==
[~2017-03-05] MED LIST changes: -BUPIVACAINE HCL 0.25% 30 ML VIAL As Ordered ONE; -TRIAMCINOLONE ACETONIDE SUSP 40 MG/ML VIAL (J3301) As Ordered ONE; -diazePAM 5 MG TAB As Ordered ONE; -oxyCODONE 5MG TAB As Ordered ONE
--- NOTE | 2017-03-24 01:16 | ECWPNPC ---
PATIENT NAME: FATIMAH DEL VALLE : 1970 GENDER: FEMALE VISIT DATE: 03/05/2017 DISCHARGE DATE: 03/05/17 1505 VISIT LOCKED DATE TIME: PHYSICIAN: JOSAFAT ARRIAGA RESOURCE: JOSAFAT ARRIAGA REASON FOR APPOINTMENT 1. FOLLOW UP PER DR Thibodeaux HISTORY OF PRESENT ILLNESS HISTORY OF PRESENT ILLNESS: HEREFOR POST PROCEDURE F/U. HAD LEFT SUPRA ORBITAL /AURICULAR INJECTIONS.DID WELL FOR 2 DAYS POST PROCEDURE THEN PAIN BEGAN TO RETURN.TODAY RATING PAIN VAS 6/10.C/O MULTIPLE ISSUES TODAY.COMPLAINING OF PAIN /NUMBNESS IN LEFT MOUTH.SHE IS IN ALOT OF DISTRESS TODAY. PAIN THE PATIENT DESCRIBES THE PAIN... FALL RISK SCREENING: SCREENING :NO FALLS IN THE PAST YEAR CURRENT MEDICATIONS TAKING HYDROXYZINE HCL 50 MG TABLET 1 TABLET NEEDED ORALLY AT NIGHT NEEDED, NOTES: 02/15/171999 TAKING TEGRETOL XR 200 MG TABLET EXTENDED RELEASE 12 HOUR 2 TABS IN AM, 3 TABS IN PM ORALLY DIRECTED/DR. LAGOS, NOTES: 02/16/17699 TAKING TOPAMAX 50 50MG TABLET 3 TABLETS ORAL TWICE DAILY, NOTES: 02/16/17699 TAKING RANITIDINE HCL 150 MG TABLET 1 CAPSULE AT BEDTIME ORALLY ONCE A DAY, NOTES: 02/15/171999 TAKING VERAPAMIL HCL ER 300 MG CAPSULE EXTENDED RELEASE 24 HOUR 1 CAPSULE ORALLY BEFORE BEDTIME, NOTES: 02/15/171999 TAKING HYDROCHLOROTHIAZIDE 12.5 12.5MG TABLET 1 TAB(S) ORAL DAILY, NOTES: 02/16/17699 TAKING ELMIRON 100 MG CAPSULE 1 CAPSULE ON AN EMPTY STOMACH ORALLY THREE TIMES A DAY, NOTES: 02/16/17699 TAKING IMITREX STATDOSE SYSTEM 6 MG/0.5ML KIT ALSO TAKES 100MG TAB PRN SUBCUTANEOUS PRN/H/A, NOTES: 02/15/17999 TAKING POTASSIUM CHLORIDE 10 10 MEQ TABLET 1 TAB ORAL ONCE DAILY, NOTES: 02/16/17699 TAKING DIOVAN 320 MG TABLET 1 TABLET ORALLY ONCE A DAY, NOTES: 02/16/17699 TAKING DEXILANT 60 MG CAPSULE DELAYED RELEASE 1 CAPSULE ORALLY ONCE A DAY, NOTES: 02/16/17699 TAKING MELATONIN 5 MG TABLET 2 TABLETS AT BEDTIME NEEDED WITH FOOD ORALLY ONCE A DAY, NOTES: 02/15/171999 TAKING CYMBALTA 60 MG CAPSULE DELAYED RELEASE PARTICLES 1 CAPSULE ORALLY TWICE DAILY, NOTES: 02/16/17 07 TAKING IMITREX 100 MG TABLET 1 TABLET NEEDED ORALLY TWICE A DAY, NOTES: 02/14/17 1000 TAKING LYRICA 100 MG CAPSULE 1 CAPSULE ORALLY BID FOR PAIN, NOTES: 02/16/17 07 TAKING LYRICA 50 MG CAPSULE 1 CAPSULE ORALLY THREE TIMES A DAY, NOTES: 02/16/17 07 TAKING METHADONE HCL 10 MG TABLET 1 TAB ORALLY Q8H TID MDD3, NOTES: 02/16/17 07 TAKING NORCO 10-325 MG TABLET 1 ORALLY EVERY 4 HOURS NEEDED, NOTES: 02/15/17 1400 TAKING TIZANIDINE HCL 4 MG TABLET 1 TABLET NEEDED ORALLY Q8H PRN, NOTES: 02/15/171999 TAKING LYRICA 50 MG CAPSULE ORALLY TID DISCONTINUED VITAMIN B COMPLEX - TABLET 1 TAB ORALLY DAILY DISCONTINUED MULTIVITAMINS TABLET 1 TAB ORALLY DAILY DISCONTINUED CALCIUM MAGNESIUM PLUS ZINC 1 CAP ORALLY DAILY DISCONTINUED TRAZODONE HCL 50 MG TABLET 1 TABLET AT BEDTIME NEEDED ORALLY ONCE A DAY DISCONTINUED PAXIL 20 MG TABLET 1 TABLET IN THE MORNING ORALLY ONCE A DAY DISCONTINUED CEPHALEXIN 500 MG CAPSULE 1 CAPSULE ORALLY TWICE A DAY DISCONTINUED FLUCONAZOLE 100 MG TABLET 1 TABLET ORALLY DAILY DISCONTINUED HYDROXYZINE PAMOATE 25 MG CAPSULE 1-2 CAPSULE NEEDED ORALLY BEFORE BEDTIME DISCONTINUED NORCO 10-325 MG TABLET 1 TABLET NEEDED ORALLY Q6H PRN MDD4 DISCONTINUED HYDROCODONE-ACETAMINOPHEN 10-325 TABLET 1 TAB ORALLY EVERY 6 HRS PRN FOR PAIN MDD4, NOTES: 1455 DISCONTINUED NORCO 10-325 MG TABLET 1 TABLET NEEDED ORALLY Q 4-6 HRS MDD=6 DISCONTINUED NORCO 10-325 MG TABLET 1 TABLET NEEDED ORALLY EVERY 6 HRS PRN MDD4 DISCONTINUED GARLIC - CAPSULE 1 CAP ORALLY DAILY DISCONTINUED MAY HAVE TUMERIC 1 CAP ORALLY DAILY DISCONTINUED HYDROXYZINE HCL 25 MG TABLET 1 TABLET NEEDED ORALLY EVERY 8 HRS FOR ITCHING DISCONTINUED DOXYCYCLINE HYCLATE 100 MG CAPSULE 1 CAPSULE ORALLY EVERY 12 HRS MEDICATION LIST REVIEWED AND RECONCILED WITH THE PATIENT PAST MEDICAL HISTORY SEASONAL ALLERGIES ENVIRONMENTAL ALLERGIES INTERSTITIAL CYSTITIS ULCERATIVE COLITIS HYPERTENSION MIGRAINE HEADACHE, CLUSTER CUELLAR 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 TAKES METHODONE, CAN'T TAKE: CONTRAINDICATION SOCIAL HISTORY GENERAL: TOBACCO USE ARE YOU A:FORMER SMOKER HOW LONG HAS IT BEEN SINCE YOU LAST SMOKED?> 10 YEARS NONDENOMINATIONAL [id number] BUDDHISM LANGUAGE LANGUAGES SPOKEN:[place]LANDER LEARNING BARRIERS / SPECIAL NEEDS CHANGE FROM LAST VISIT?NO BARRIERS TO LEARNING?NO HEARING IMPAIRED?NO VISION IMPAIRED?YES COGNITIVELY IMPAIRED?NO READINESS TO LEARN?YES LEARNING PREFERENCES?NO LEARNING CAPABILITIES PRESENT?YES EMOTIONAL BARRIERS?NO SPECIAL DEVICES?NO CONICAL MIXER NEEDED?NO PAIN CLINIC PFS, CLERGY, PUBLIC HEALTH REFERRALS PFS REFERRAL NEEDED?NO CLERGY REFERRAL NEEDED?NO PUBLIC HEALTH REFERRAL NEEDED?NO WAS THE PROVIDER NOTIFIED OF ANY PERTINENT INFO?NO HAS THE PATIENT BEEN EDUCATED REGARDING HIS/HER PLAN OF CARE?YES HAS THE PATIENT BEEN EDUCATED REGARDING PAIN, THE RISK FOR PAIN, THE IMPORTANCE OF EFFECTIVE PAIN MANAGEMENT, AND THE PAIN ASSESSMENT PROCESS?YES PATIENT: ____. REVIEW OF SYSTEMS REVIEWED BY: PROVIDER: JOSAFAT ADLER . CONSTITUTIONAL: ANY CHANGE IN YOUR MEDICAL CONDITION? NO . CHILLS NO . FEVER NO . INFECTION: DO YOU HAVE NEW INFECTIONS? NO . DO YOU HAVE HISTORY OF MRSA? NO . MUSCULOSKELETAL: ANY NEW PATTERNS OF PAIN OR NUMBNESS? NO . GASTROENTEROLOGY: ANY NEW CHANGE IN BOWEL CONTROL? NO . GENITOURINARY: ANY NEW CHANGE IN BLADDER CONTROL? NO . IS THERE A CHANCE YOU COULD BE ? NO . HEMATOLOGY/LYMPH: DO YOU TAKE ANY BLOOD THINNERS? (FOR EXAMPLE- COUMADIN, PLAVIX, AGGRENOX, PLATEL, PRADAXA, OR XARELTO) NO . WHEN WAS YOUR LAST DOSE? DATE: TIME: . NEUROLOGY: HAVE YOU FALLEN IN THE PAST 6 MONTHS? NO . ANY NEW EXTREMITY NUMBNESS OR WEAKNESS? NO . CARDIOLOGY: DO YOU HAVE A PACEMAKER OR DEFIBRILLATOR? NO . RESPIRATORY: HAVE YOU BEEN SICK IN THE PAST WEEK? NO . FEVER NO . FLU LIKE SYMPTOMS? NO . COUGH NO . INTEGUMENTARY: DO YOU HAVE ANY RASHES OR OPEN SORES? YES . ALLERGIC/IMMUNO: ARE YOU ALLERGIC TO SHELLFISH OR IV DYE? NO . ANY NEW ALLERGIES? NO . PSYCHIATRIC: DO YOU HAVE THOUGHTS OF HURTING YOURSELF OR SOMEONE ELSE? NO . ARE YOU ABUSED, NEGLECTED, OR IN AN UNSAFE ENVIRONMENT? NO . ENDOCRINOLOGY: ARE YOU DIABETIC? NO . OTHER: DO YOU NEED ANY PRESCRIPTIONS? YES . IF YES, PLEASE LIST: ____ . ANY NEW PROBLEMS WITH YOUR MEDICATIONS? NO . WHEN DID YOU LAST EAT? ____ . WHEN DID YOU LAST DRINK? ____ . WHAT DID YOU LAST DRINK? ____ . NAME OF PERSON DRIVING YOU HOME? ____ . DO YOU HAVE ANY OTHER QUESTIONS OR CONCERNS NO . VITAL SIGNS WT 175 LBS, HT 62 1/2, BMI 31.49 INDEX, BP 122/82 MM HG, HR 79 /MIN, RR 18 /MIN, TEMP 99.2 F, OXYGEN SAT % 98%, SAFE IN ENV? (Y/N) YES, NA INITIALS SC 13:46, REVIEWED BY: VD. EXAMINATION GENERAL EXAMINATION: GENERAL APPEARANCE:COMFORTABLE. PSYCHAFFECT NORMAL.POSITIVE. HEENT:PUPILS EQUAL AND REACTIVE TO LIGHT (AYANA).HYPER SENSITIVE TO LIGHT TOUCH LEFT FACE AND HEAD.TENDER OVER LEFT OCCIPITAL AREA AND SCAR IN THIS AREA.. NECK:TRACHEA MIDLINE. NO CERVICAL OR SUPRACLAVICULAR LYMPHADENOPATHY NOTED. LUNGS:LUNG MONTIEL ARE CLEAR TO AUSCULTATION BILATERALLY. GOOD MOVEMENT OF AIR. HEART:S1, S2 IN A REGULAR RATE AND RHYTHM. NO SIGNIFICANT MURMURS, RUBS OR GALLOPS NOTED. MUSCULOSKELETAL:*. NEUROLOGIC EXAM:DTRS 1-2+ IN ALL 4 EXTREMITIES, MOTOR STRENGTH - 5/5 UPPER AND LOWER EXTREMITIES. 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 (PRIMARY) CHRONIC PRESCRIPTION OPIATE USE - Z79.891 TREATMENT TRIGEMINAL NEURALGIA DECREASE METHADONE HCL TABLET, 10 MG, 1 TAB, ORALLY, QAM AND QPM MDD2, 30 DAY(S), 60, REFILLS 0, NOTES: 02/16/17 0700 CONTINUE NORCO TABLET, 10-325 MG, 1, ORALLY, Q6H PRN MDD4, 30 DAY(S), 120, REFILLS 0, NOTES: 02/15/17 1400 CONTINUE TIZANIDINE HCL TABLET, 4 MG, 1 TABLET NEEDED, ORALLY, Q8H PRN, 30 DAY(S), 45, REFILLS 2, NOTES: 02/15/17 2000 START METHADONE HCL TABLET, 5 MG, 1 TABLET, ORALLY, ONCE A DAY 12N MDD1, 30 DAY(S), 30, REFILLS 0 NOTES: SUPRAORBITAL,PREAURICULAR ,OCCIPITAL BLOCKISTOP REGISTRY REVIEWED [id number] AND DEMNOSTMANDEEP COMPLLIANCE. BRINGS IN MEDICATIONS WHICH IS APPROPRIATE FOR WHAT WAS DISPENSED. RECENT URINE TOXICOLOGY REVIEWED. NO UNAUTHORIZED MEDICATIONS. NO ILLICIT SUBSTANCES AND PRESCRIBED MEDICATIONS WERE PRESENT. , RISKS AND BENEFITS OF NARCOTIC/OPIOD MEDICATIONS WERE REVIEWED WITH PATIENT - THIS INCLUDES BUT IS NOT LIMITED TO RISK OF DEPENDANCE/DEVELOPMENT OF ADDICTION, MOOD DISTURBANCE AND DEPRESSION, OSTEOPOROSIS, HORMONAL AND LABIDAL CHANGES, RESPIRATORY DEPRESSION AND . PATIENT IS ADVISED NOT TO DRIVE WHILE ON THESE MEDICATIONS,. PROCEDURE CODES FA211 ESTABILISHED PATIENT [facility] CHARGE G8730 PAIN ASSESS POS TOOL F/U PLAN DOC G8427 DOC MEDS VERIFIED W/PT OR RE DISPOSITION & COMMUNICATION FOLLOW UP 4 WEEKS MED MANAGEMENT (REASON: SUPRAORBITAL,PREAURICULAR ,OCCIPITAL BLOCK) ELECTRONICALLY SIGNED BY NAYELY ODOM ON 03/23/2017 AT 01:00 PM EST DISCLAIMER : THIS IS A VISIT SUMMARY EXTRACTED FROM THE [employer] CHART. IT IS NOT A COPY OF THE [employer] PROGRESS NOTE. BLANCA
== END ==
LOC: M PAIN 13:30
PROVIDERS: ATTEND Nurse Practitioner Family
DX: G89.29 Other chronic pain (principal); G50.0 Trigeminal neuralgia; Z79.891 Long term (current) use of opiate analgesic; J30.2 Other seasonal allergic rhinitis; I10 Essential (primary) hypertension; G43.909 Migraine, unspecified, not intractable, without status migrainosus; K22.70 Barrett's esophagus without dysplasia; M79.7 Fibromyalgia; L30.9 Dermatitis, unspecified; Z87.891 Personal history of nicotine dependence; Z79.899 Other long term (current) drug therapy; Z91.048 Other nonmedicinal substance allergy status

== ENCOUNTER → 2017-04-10 | Outpatient (CLI) | payer MEDICARE, MEDICAID | LOC: M PAIN 15:00 | DX: G50.0 Trigeminal neuralgia (principal); M25.551 Pain in right hip; J30.89 Other allergic rhinitis; I10 Essential (primary) hypertension; G43.909 Migraine, unspecified, not intractable, without status migrainosus; K22.70 Barrett's esophagus without dysplasia; M79.7 Fibromyalgia; L23.1 Allergic contact dermatitis due to adhesives; Z88.1 Allergy status to other antibiotic agents; F11.20 Opioid dependence, uncomplicated; Z79.891 Long term (current) use of opiate analgesic; Z79.899 Other long term (current) drug therapy; Z86.79 Personal history of other diseases of the circulatory system; Z87.891 Personal history of nicotine dependence | CPT/HCPCS: G0463 ==

== ENCOUNTER → 2017-05-06 | Outpatient (CLI) | payer MEDICARE, MEDICAID ==
[~2017-05-06] MED LIST changes: -/DULO30CA OR; -/ESOM40CA; -/ESOM40CA OR; -/SUCR1TA; -ALL10TAB27 PO; -ALPH0.156 OU; -ASCOL; -BACL10TA2 OR; -BACL10TA2 PO; +BUPIVACAINE HCL 0.25% 10 ML VIAL As Ordered; +BUPIVACAINE HCL 0.25% 30 ML VIAL As Ordered; -CALA240T OR; -CALCIUM MAG ZINC PO; -CARA1SUS OR; -CARB20TA PO; -CYMB60CA3 PO; -DEXI60CA2 PO; -DEXILANT PO; -DILA2TAB; -DILA4TAB13 PO; -DIOV320T OR; -DULO20CA; -ELMIRON OR; -EMBEDA; -FLUC10TA PO; -HYDR-3363 PO; -HYDR-3716 PO; -HYDR12CA PO; -HYDR25TA6 OR; -HYDROCODONE/ACET PO; -IMIT100T OR; -IMIT100T PO; -IMIT6INJ; -IMIT6INJ SC; -IMIT6KIT SC; -KEFL250C11 PO; -KEFL500C; -KLOR-CON PO; -KLOR1TAB69 PO; -LIDO1SOL7; -LISI20TA5 OR; -LYRI75CA; -MELA10TA4 PO; -METH10TA2 OR; -METH10TA2 PO; +MIDAZOLAM INJ 2 MG/2 ML VIAL (J2250) As Ordered; -MULT1TAB10 PO; -PAXI20TA29 PO; -PENT10CA PO; -POTA10TA16 PO; -POTAGRA83 OR; -POTASSIUM; -PREG100CA PO; -PREG50CA OR; -PREG50CA PO; -PROBCAP4 PO; -RANI150T PO; -REPLAX; -TEGR200T PO; -TOPA50TA8 PO; -TOPI50TA OR; -TRAZ25TA PO; +TRIAMCINOLONE ACETONIDE SUSP 40 MG/ML VIAL (J3301) As Ordered; -VALS1TAB47 PO; -VERA300C PO; -VICO5TAB; -VICO5TAB OR; -VICODINES TAB OR; -VITA1CAP7 PO; -VITATAB11 PO; -[UNRECOGNIZED DRUG - OTHER]; -[UNRECOGNIZED DRUG - OTHER]; +diazePAM 5 MG TAB As Ordered; +fentaNYL 100 MCG/2 ML INJECTION (J3010) As Ordered; +oxyCODONE 5MG TAB As Ordered
== END ==
LOC: M PAIN 11:00
DX: L90.5 Scar conditions and fibrosis of skin (principal); G50.1 Atypical facial pain; M79.7 Fibromyalgia; G50.0 Trigeminal neuralgia; I10 Essential (primary) hypertension; G43.909 Migraine, unspecified, not intractable, without status migrainosus; G50.8 Other disorders of trigeminal nerve; Z79.891 Long term (current) use of opiate analgesic; Z79.899 Other long term (current) drug therapy; Z86.69 Personal history of other diseases of the nervous system and sense organs; Z88.1 Allergy status to other antibiotic agents; Z91.048 Other nonmedicinal substance allergy status; J32.9 Chronic sinusitis, unspecified; Z87.891 Personal history of nicotine dependence
CPT/HCPCS: J3301

== ENCOUNTER → 2017-06-10 | Outpatient (CLI) | payer MEDICARE, MEDICAID | LOC: M PAIN 14:30 | DX: G50.0 Trigeminal neuralgia (principal); I10 Essential (primary) hypertension; F41.9 Anxiety disorder, unspecified; R25.8 Other abnormal involuntary movements; G43.909 Migraine, unspecified, not intractable, without status migrainosus; Z79.891 Long term (current) use of opiate analgesic; Z79.899 Other long term (current) drug therapy; J30.2 Other seasonal allergic rhinitis; Z91.048 Other nonmedicinal substance allergy status; Z88.8 Allergy status to other drugs, medicaments and biological substances; Z87.891 Personal history of nicotine dependence | CPT/HCPCS: G0463 ==

== ENCOUNTER → 2017-07-08 | Outpatient (CLI) | payer MEDICARE, MEDICAID | LOC: M PAIN 14:15 | DX: G89.29 Other chronic pain (principal); G50.0 Trigeminal neuralgia; J30.2 Other seasonal allergic rhinitis; I10 Essential (primary) hypertension; M79.7 Fibromyalgia; N30.10 Interstitial cystitis (chronic) without hematuria; K51.90 Ulcerative colitis, unspecified, without complications; G44.009 Cluster headache syndrome, unspecified, not intractable; Q61.3 Polycystic kidney, unspecified; K22.70 Barrett's esophagus without dysplasia; L30.9 Dermatitis, unspecified; Z79.891 Long term (current) use of opiate analgesic; Z79.899 Other long term (current) drug therapy; Z87.891 Personal history of nicotine dependence; Z91.048 Other nonmedicinal substance allergy status | CPT/HCPCS: G0463 ==

== ENCOUNTER → 2017-08-19 | Outpatient (CLI) | payer MEDICARE, MEDICAID | LOC: M PAIN 13:30 | DX: G89.29 Other chronic pain (principal); G50.0 Trigeminal neuralgia; J30.2 Other seasonal allergic rhinitis; N30.10 Interstitial cystitis (chronic) without hematuria; K51.90 Ulcerative colitis, unspecified, without complications; I10 Essential (primary) hypertension; K22.70 Barrett's esophagus without dysplasia; M79.7 Fibromyalgia; L30.9 Dermatitis, unspecified; Z87.891 Personal history of nicotine dependence; Z79.891 Long term (current) use of opiate analgesic; Z79.899 Other long term (current) drug therapy; Z91.048 Other nonmedicinal substance allergy status | CPT/HCPCS: G0463 ==

== ENCOUNTER → 2017-08-27 | Outpatient (CLI) | payer MEDICARE, MEDICAID | LOC: M RAD 11:53 | DX: Q61.2 Polycystic kidney, adult type (principal) | CPT/HCPCS: 76775 ==

== ENCOUNTER → 2017-12-14 | Outpatient (CLI) | payer MEDICARE, MEDICAID | LOC: M PAIN 13:15 | DX: Z53.29 Procedure and treatment not carried out because of patient's decision for other reasons (principal) ==

== ENCOUNTER → 2018-02-01 | Outpatient (REF) | payer MEDICARE, MEDICAID ==
[2018-02-01 17:24] LABS: BASO # 0.1 10^3/uL (0.0-0.2); BASO % 0.9 % (0.0-1.0); EOS # 0.2 10^3/uL (0.0-0.50); EOS % 2.4 % (0.0-3.0); HEMATOCRIT 40.9 % (36.0-47.0); HEMOGLOBIN 13.5 g/dl (12.0-15.5); IMMATURE GRANULOCYTE % 0.1 % (0-3.0); LYMPH # 3.2 10^3/uL (1.5-4.5); MEAN CORPUSCULAR HEMOGLOBIN 32.2 pg (27.0-33.0); MEAN CORPUSCULAR VOLUME 97.6 fl (80.0-96.0); MONO # 0.5 10^3/uL (0.0-0.8); MONO % 5.7 % (0.0-5.0); NEUTROPHILS # 3.9 10^3/uL (1.8-7.7); NEUTROPHILS % 49.9 % (36.0-66.0); PLATELET COUNT, AUTOMATED 360 10^3/uL (150-450); RED BLOOD COUNT 4.19 10^6/uL (4.00-5.40); RED CELL DISTRIBUTION WIDTH 12.7 % (11.5-14.5); WHITE BLOOD COUNT 7.9 10^3/uL (4.0-10.0)
[2018-02-01 17:28] LABS: ALBUMIN 4.2 GM/DL (3.2-5.2); ALKALINE PHOSPHATASE 107 U/L (45-117); ALT/SGPT 28 U/L (12-78); ANION GAP 7 MEQ/L (8-16); AST/SGOT 14 U/L (7-37); BILIRUBIN,TOTAL 0.3 MG/DL (0.2-1.0); BLOOD UREA NITROGEN 15 MG/DL (7-18); CALCIUM LEVEL 8.8 MG/DL (8.5-10.1); CARBAMAZEPINE (TEGRETOL) LEVEL 13.4 UG/ML (4.0-10.0); CARBON DIOXIDE LEVEL 23 MEQ/L (21-32); CHLORIDE LEVEL 108 MEQ/L (98-107); CREATININE FOR GFR 0.94 MG/DL (0.55-1.30); GLOMERULAR FILTRATION RATE > 60.0 (>58); GLUCOSE, FASTING 85 MG/DL (70-100); POTASSIUM SERUM 4.7 MEQ/L (3.5-5.1); SODIUM LEVEL 138 MEQ/L (136-145); TOTAL PROTEIN 7.7 GM/DL (6.4-8.2)
== END ==
LOC: M LABNEURO 11:45
DX: G43.909 Migraine, unspecified, not intractable, without status migrainosus (principal); G50.0 Trigeminal neuralgia
CPT/HCPCS: 80156

== ENCOUNTER 2018-02-12 14:38 | Emergency (ER) | payer MEDICARE, MEDICAID ==
[2018-02-12] MEDS: predniSONE 20 MG TAB PO (16:19)
[2018-02-12] MEDS: KETOROLAC 60 MG/2 ML VIAL (J1885) IM (16:20)
[2018-02-12] MEDS: ONDANSETRON 4 MG ORAL DISINTEGRATING TAB (Q0162 PER 1MG) PO (16:47)
[2018-02-12] MEDS: HYDROMORPHONE HCL 0.5 MG/ 0.5 ML SYRINGE (J1170 PER 1) IM (16:47)
== END 2018-02-12 17:15 | disposition home or self-care (01) ==
LOC: M ED 14:38
DX: G50.0 Trigeminal neuralgia (principal); G50.1 Atypical facial pain; I10 Essential (primary) hypertension; M54.5 Low back pain; Q61.3 Polycystic kidney, unspecified; Z88.8 Allergy status to other drugs, medicaments and biological substances; Z91.048 Other nonmedicinal substance allergy status; Z79.899 Other long term (current) drug therapy
CPT/HCPCS: Q0162

== ENCOUNTER → 2018-02-12 | Outpatient (CLI) | payer MEDICARE, MEDICAID | LOC: M PAIN 13:45 | DX: Z53.29 Procedure and treatment not carried out because of patient's decision for other reasons (principal) ==

== ENCOUNTER → 2018-05-10 | Outpatient (CLI) | payer MEDICARE ==
[~2018-05-10] MED LIST changes: +/DULO30CA OR; +/ESOM40CA; +/ESOM40CA OR; +/SUCR1TA; +ALL10TAB28 PO; +ALPH0.156 OU; +ASCOL; +BACL10TA2 OR; +BACL10TA2 PO; -BUPIVACAINE HCL 0.25% 10 ML VIAL As Ordered; -BUPIVACAINE HCL 0.25% 30 ML VIAL As Ordered; +CALA240T OR; +CALCIUM MAG ZINC PO; +CARA1SUS OR; +CARB20TA PO; +CYMB60CA3 PO; +DEXI60CA2 PO; +DEXILANT PO; +DILA2TAB; +DILA4TAB13 PO; +DIOV320T OR; +DULO20CA; +ELMIRON OR; +EMBEDA; +FLUC10TA PO; +HYDR-3363 PO; +HYDR-3716 PO; +HYDR12CA PO; +HYDR25TA6 OR; +HYDROCODONE/ACET PO; +IMIT100T OR; +IMIT100T PO; +IMIT6INJ; +IMIT6INJ SC; +IMIT6KIT SC; +KEFL250C11 PO; +KEFL500C; +KLOR-CON PO; +KLOR1TAB69 PO; +LIDO1SOL7; +LISI20TA5 OR; +LYRI75CA; +MELA10TA4 PO; +METH10TA2 OR; +METH10TA2 PO; -MIDAZOLAM INJ 2 MG/2 ML VIAL (J2250) As Ordered; +MULT1TAB10 PO; +PAXI20TA29 PO; +PENT10CA PO; +POTA10TA16 PO; +POTAGRA83 OR; +POTASSIUM; +PRED20TA PO; +PREG100CA PO; +PREG50CA OR; +PREG50CA PO; +PROBCAP4 PO; +RANI150T PO; +REPLAX; +TEGR200T PO; +TOPA50TA8 PO; +TOPI50TA OR; +TRAZ25TA PO; -TRIAMCINOLONE ACETONIDE SUSP 40 MG/ML VIAL (J3301) As Ordered; +VALS1TAB47 PO; +VERA300C PO; +VICO5TAB; +VICO5TAB OR; +VICODINES TAB OR; +VITA1CAP7 PO; +VITATAB11 PO; +[UNRECOGNIZED DRUG - OTHER]; +[UNRECOGNIZED DRUG - OTHER]; -diazePAM 5 MG TAB As Ordered; -fentaNYL 100 MCG/2 ML INJECTION (J3010) As Ordered; -oxyCODONE 5MG TAB As Ordered
--- NOTE | 2018-05-27 00:28 | ECWPNPC ---
PATIENT NAME: FATIMAH DEL VALLE : 1970 GENDER: FEMALE VISIT DATE: 05/10/2018 DISCHARGE DATE: 05/10/18 1124 VISIT LOCKED DATE TIME: PHYSICIAN: JOSAFAT ARRIAGA RESOURCE: JOSAFAT ARRIAGA REASON FOR APPOINTMENT 1. 1/2 HR SLOT PER LB HISTORY OF PRESENT ILLNESS HISTORY OF PRESENT ILLNESS: HERE FOR F/U OF CHRONIC HEAD PAIN WITH HISTORY OF TRIGEMINAL NEURALGIA S/P SURGERY WITH COMPLICATIONS.HAS GOOD DAYS AND BAD DAYS.HAS DISABLING EPISODES ABOUT 2XWK.FOLLOWS WITH NEUROLOGY.COMPLAINS OF BURNING JOINTS.BEING EVALUATED FOR GLUTEN ALLERGY.CONTINUES TO HAVE INFLAMED PAPULES THAT ARE ITCHING.PAIN VAS RANGES 2-10/10. PAIN THE PATIENT DESCRIBES THE PAIN... FALL RISK SCREENING: SCREENING :NO FALLS IN THE PAST YEAR CURRENT MEDICATIONS TAKING TEGRETOL XR 200 MG TABLET EXTENDED RELEASE 12 HOUR 2 TABS IN AM, 3 TABS IN PM ORALLY DIRECTED/DR. LAGOS TAKING TOPAMAX 50 50MG TABLET 3 TABLETS ORAL TWICE DAILY TAKING RANITIDINE HCL 150 MG TABLET 1 CAPSULE AT BEDTIME ORALLY ONCE A DAY TAKING VERAPAMIL HCL ER 300 MG CAPSULE EXTENDED RELEASE 24 HOUR 1 CAPSULE ORALLY BEFORE BEDTIME TAKING HYDROCHLOROTHIAZIDE 12.5 12.5MG TABLET 2 TAB(S) ORAL DAILY, NOTES: 25MG DAILY TAKING ELMIRON 100 MG CAPSULE 1 CAPSULE ON AN EMPTY STOMACH ORALLY THREE TIMES A DAY TAKING IMITREX STATDOSE SYSTEM 6 MG/0.5ML KIT ALSO TAKES 100MG TAB PRN SUBCUTANEOUS PRN/H/A TAKING POTASSIUM CHLORIDE 10 10 MEQ TABLET 1 TAB ORAL ONCE DAILY TAKING DEXILANT 60 MG CAPSULE DELAYED RELEASE 1 CAPSULE ORALLY ONCE A DAY TAKING MELATONIN 5 MG TABLET 2 TABLETS AT BEDTIME NEEDED WITH FOOD ORALLY ONCE A DAY TAKING IMITREX 100 MG TABLET 1 TABLET NEEDED ORALLY TWICE A DAY, NOTES: NONE RECENT TAKING CYMBALTA 60 MG CAPSULE DELAYED RELEASE PARTICLES 1 CAPSULE ORALLY TWICE DAILY TAKING LYRICA 100 MG CAPSULE 1 CAPSULE ORALLY DAILY, NOTES: TAKES TOTAL OF 200MG DAILY TAKING IBUPROFEN 800 MG TABLET 1 TABLET WITH FOOD OR MILK NEEDED ORALLY THREE TIMES A DAY TAKING TIZANIDINE HCL 4 MG TABLET 1 TABLET NEEDED ORALLY Q8H PRN TAKING NORCO 10-325 MG TABLET 1 ORALLY Q6H PRN MDD4 TAKING BACLOFEN 10 MG TABLET 1 TABLET WITH FOOD OR MILK ORALLY THREE TIMES A DAY TAKING OXYGEN TAKING LOSARTAN POTASSIUM 100 MG TABLET 1 TABLET ORALLY ONCE A DAY TAKING LYRICA 50 MG CAPSULE 1 CAPSULE ORALLY IN AFTERNOON AND AT BEDTIME, NOTES: TAKES TOTAL OF 200MG DAILY DISCONTINUED HYDROXYZINE HCL 50 MG TABLET 1 TABLET NEEDED ORALLY AT NIGHT NEEDED DISCONTINUED DIOVAN 320 MG TABLET 1 TABLET ORALLY ONCE A DAY DISCONTINUED METHADONE HCL 10 MG TABLET 1 TAB ORALLY DAILY MDD1 MEDICATION LIST REVIEWED AND RECONCILED WITH THE PATIENT PAST MEDICAL HISTORY SEASONAL ALLERGIES ENVIRONMENTAL ALLERGIES INTERSTITIAL CYSTITIS ULCERATIVE COLITIS HYPERTENSION MIGRAINE HEADACHE, CLUSTER CUELLAR 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 ESOPHAGUS LUMBAR DISC DISEASE SPINAL FLUID LEAK,FX 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 FIBROMYALGIA MCLEAN'S PALSY MONONUCLEOSIS DERMATITIS SCALP ALLERGIES TAPE ADHESIVE : OOZING RASH: ALLERGY SURGICAL HISTORY DECOMPRESSION SURGERY 2005 BLADDER SURGERY LAMINECTOMY X 3 GAMMA KNIFE SURGERY TOE SURGERY-LEFT GREAT LAPAROSCOPY-EXPLORATORY CHOLECYSTECTOMY BALLOON COMPRESSION-BRAIN LAPAROSCOPIC TRIGEMINAL NERVE BLOCK TEMPORAL NERVE SURGERY 12/2013 FAMILY HISTORY FATHER: , DIAGNOSED WITH STROKE MOTHER: , DIAGNOSED WITH HEART DISEASE 6 BROTHER(S) , 3 SISTER(S) . 1 SON(S) . BROTHER PASSED FROM PANCREATIC CANCERONE SISTER HAD BREAST CANCER. SOCIAL HISTORY GENERAL: TOBACCO USE ARE YOU A:FORMER SMOKER HOW LONG HAS IT BEEN SINCE YOU LAST SMOKED?> 10 YEARS ALCOHOL SCREENING DID YOU HAVE A DRINK CONTAINING ALCOHOL IN THE PAST YEAR?NO POINTS0 INTERPRETATIONNEGATIVE RECREATIONAL DRUG USE DRUG USE?NO PATIENT DENIES ABUSE OR MISSUSED OF ANY MEDICATION. PATIENT DENIES USE OF ANY ILLEGAL SUBSTANCE INCLUDING MARIJUANA OR COCAINE. CAFFEINE CAFFEINE USE?YES HOW OFTEN AND HOW MUCH? DAILY/1 CUP TEMPLE [id number] LATTER-DAY LANGUAGE LANGUAGES SPOKEN:PANAMANIAN LEARNING BARRIERS / SPECIAL NEEDS CHANGE FROM LAST VISIT?NO BARRIERS TO LEARNING?NO HEARING IMPAIRED?NO VISION IMPAIRED?YES COGNITIVELY IMPAIRED?NO READINESS TO LEARN?YES LEARNING PREFERENCES?NO LEARNING CAPABILITIES PRESENT?YES EMOTIONAL BARRIERS?NO SPECIAL DEVICES?NO UNIVERSITY CONTROLLER NEEDED?NO MARITAL STATUS: . OTHERS AT HOME: SPOUSE AND SON. PAIN CLINIC PFS, CLERGY, PUBLIC HEALTH REFERRALS PFS REFERRAL NEEDED?NO CLERGY REFERRAL NEEDED?NO PUBLIC HEALTH REFERRAL NEEDED?NO WAS THE PROVIDER NOTIFIED OF ANY PERTINENT INFO?NO HAS THE PATIENT BEEN EDUCATED REGARDING HIS/HER PLAN OF CARE?YES HAS THE PATIENT BEEN EDUCATED REGARDING PAIN, THE RISK FOR PAIN, THE IMPORTANCE OF EFFECTIVE PAIN MANAGEMENT, AND THE PAIN ASSESSMENT PROCESS?YES ADVANCE DIRECTIVE ADVANCE DIRECTIVE DISCUSSED WITH PATIENT:YES PT DOES NOT HAVE HCP AND DECLINES INFO AND ASSISTANCE WITH FORM AT THIS TIME. 05/10/18 REVEIWED WITH PT 05/10/18 1030 BV. HOSPITALIZATION/MAJOR DIAGNOSTIC PROCEDURE RELATED TO SURG REVIEW OF SYSTEMS REVIEWED BY: PROVIDER: JOSAFAT ADLER . CONSTITUTIONAL: ANY CHANGE IN YOUR MEDICAL CONDITION? YES, WAITING ON GLUTEN TEST RESULTS . CHILLS NO . FEVER NO . INFECTION: DO YOU HAVE NEW INFECTIONS? NO . DO YOU HAVE HISTORY OF MRSA? NO . MUSCULOSKELETAL: ANY NEW PATTERNS OF PAIN OR NUMBNESS? NO . GASTROENTEROLOGY: ANY NEW CHANGE IN BOWEL CONTROL? NO . GENITOURINARY: ANY NEW CHANGE IN BLADDER CONTROL? YES, PT COMPAINS OF NEW URGENCY AND NOCTURNAL ENURESIS SINCE AROUND CHRISTMASTIME. . IS THERE A CHANCE YOU COULD BE ? NO . HEMATOLOGY/LYMPH: DO YOU TAKE ANY BLOOD THINNERS? (FOR EXAMPLE- COUMADIN, PLAVIX, AGGRENOX, PLATEL, PRADAXA, OR XARELTO) NO . WHEN WAS YOUR LAST DOSE? DATE: TIME: . NEUROLOGY: HAVE YOU FALLEN IN THE PAST 12 MONTHS? YES, HAD A FEW FALLS IN THE PAST COUPLE MONTHS. DENIES ANY INJURIES BEYOND MINOR BUMPS/BRUISES. DENIES ANY ED VISIT. . ANY NEW EXTREMITY NUMBNESS OR WEAKNESS? NO, PT HAS NEW SENSATION IN BILATERAL PALMS AND BILATERAL FEET. STATES FEELS LIKE A COLD/WET SENSATION THAT HAS BEEN GOING ON INTERMITTENTLY FOR THE PAST COUPLE MONTHS. STATES SHE CANNOT DISTINGUISH FEELING BETWEEN WET AND DRY. . CARDIOLOGY: DO YOU HAVE A PACEMAKER OR DEFIBRILLATOR? NO . RESPIRATORY: HAVE YOU BEEN SICK IN THE PAST WEEK? NO . FEVER NO . FLU LIKE SYMPTOMS? NO . COUGH NO . INTEGUMENTARY: DO YOU HAVE ANY RASHES OR OPEN SORES? NO . ALLERGIC/IMMUNO: ARE YOU ALLERGIC TO IV DYE? NO . ANY NEW ALLERGIES? NO . PSYCHIATRIC: DO YOU HAVE THOUGHTS OF HURTING YOURSELF OR SOMEONE ELSE? NO . ARE YOU ABUSED, NEGLECTED, OR IN AN UNSAFE ENVIRONMENT? NO . ENDOCRINOLOGY: ARE YOU DIABETIC? NO . OTHER: DO YOU NEED ANY PRESCRIPTIONS? YES, HYDROCODONE 10-325 . IF YES, PLEASE LIST: ____ . ANY NEW PROBLEMS WITH YOUR MEDICATIONS? NO . WHEN DID YOU LAST EAT? ____ . WHEN DID YOU LAST DRINK? ____ . WHAT DID YOU LAST DRINK? ____ . NAME OF PERSON DRIVING YOU HOME? ____ . DO YOU HAVE ANY OTHER QUESTIONS OR CONCERNS NO . VITAL SIGNS WT 203.6 LBS, HT 62 1/2, BMI 36.64 INDEX, BP 133/75 MM HG, HR 102 /MIN, RR 18 /MIN, TEMP 98.2 F, OXYGEN SAT % 97%, NA INITIALS SC 10:21, REVIEWED BY: BV. EXAMINATION GENERAL EXAMINATION: GENERAL APPEARANCE:AWAKE,ALERT ,PLEAASANT . PSYCHAFFECT NORMAL . LUNGS:LUNG MONTIEL ARE CLEAR TO AUSCULTATION BILATERALLY. GOOD MOVEMENT OF AIR . HEART:S1, S2 IN A REGULAR RATE AND RHYTHM. NO SIGNIFICANT MURMURS, RUBS OR GALLOPS NOTED . 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 (PRIMARY) TREATMENT TRIGEMINAL NEURALGIA STOP IBUPROFEN TABLET, 800 MG, 1 TABLET WITH FOOD OR MILK NEEDED, ORALLY, THREE TIMES A DAY CONTINUE TIZANIDINE HCL TABLET, 4 MG, 1 TABLET NEEDED, ORALLY, Q8H PRN REFILL NORCO TABLET, 10-325 MG, 1, ORALLY, Q6H PRN MDD4, 30 DAY(S), 120, REFILLS 0 NOTES: CONTINUE WORK UP W DR BEATTY , ISTOP REGISTRY REVIEWED AND DEMONSTRATES COMPLLIANCE. BRINGS IN MEDICATIONS WHICH IS APPROPRIATE FOR WHAT WAS DISPENSED. RECENT URINE TOXICOLOGY REVIEWED. NO UNAUTHORIZED MEDICATIONS. NO ILLICIT SUBSTANCES AND PRESCRIBED MEDICATIONS WERE PRESENT. URINE TOX TODAYNARCOTIC UPDATE, [facility] NARCOTIC AGREEMENT WAS REVIEWED AND SIGNED TODAY BY THE PATIENT. SEE ATTACHED DOCUMENT FOR FULL DETAILS; SPECIFIC ISSUES WERE REVIEWED: 1) KEEP PAIN MEDS IN THEIR ORIGINAL BOTTLES AND ANY WEEKLY PLANNERS ARE TO BE BROUGHT TO THE PAIN CENTER AT EVERY VISIT. 2) THE PATIENT IS NOT TO INCREASE DOSING OR TIMING OF THEIR PAIN MEDICATION WITHOUT SPECIFIC DIRECTION OF THEIR PAIN CENTERPROVIDER (NOT ER OR OTHER PROVIDERS). 3) ALL PAIN MEDS ARE TO BE KEPT SECURED, IN A LOCKED BOX. 4) NO PAIN MEDS ARE TO BE SHARED WITH ANY OTHER PERSON FOR ANY REASON. 5) NO PAIN MEDS MAY BE TAKEN FROM ANY FRIENDS OR RELATIVES FOR ANY REASON 6) NO MEDS OR SUBSTANCES WHICH ARE NOT LEGAL ARE TO BE USED- NO MARIJUANA, NO COCAINE, AMPHETAMINES, HEROIN, OR OTHERS ARE EVER TO BE USED. 7)URINE TESTING IS DONE TO ACCOUNT FOR MEDS AND SUBSTANCES BEING TAKEN AND WILL BE DONE RANDOMLY., RISKS AND BENEFITS OF NARCOTIC/OPIOD MEDICATIONS WERE REVIEWED WITH PATIENT - THIS INCLUDES BUT IS NOT LIMITED TO RISK OF DEPENDANCE/DEVELOPMENT OF ADDICTION, MOOD DISTURBANCE AND DEPRESSION, OSTEOPOROSIS, HORMONAL AND LABIDAL CHANGES, RESPIRATORY DEPRESSION AND . PATIENT IS ADVISED NOT TO DRIVE OR DRINK ALCOHOL WHILE ON THESE MEDICATIONS. PROCEDURE CODES FA211 ESTABILISHED PATIENT [facility] CHARGE DISPOSITION & COMMUNICATION FOLLOW UP 2 MONTHS ELECTRONICALLY SIGNED BY NAYELY CHAVEZ ON 05/26/2018 AT 08:59 AM EST DISCLAIMER : THIS IS A VISIT SUMMARY EXTRACTED FROM THE [employer] CHART. IT IS NOT A COPY OF THE [employer] PROGRESS NOTE. BLANCA
== END ==
LOC: M PAIN 10:00
PROVIDERS: ATTEND Nurse Practitioner Family
DX: G50.0 Trigeminal neuralgia (principal); J30.2 Other seasonal allergic rhinitis; I10 Essential (primary) hypertension; K51.90 Ulcerative colitis, unspecified, without complications; N30.10 Interstitial cystitis (chronic) without hematuria; G44.009 Cluster headache syndrome, unspecified, not intractable; K22.70 Barrett's esophagus without dysplasia; M79.7 Fibromyalgia; L30.9 Dermatitis, unspecified; Q61.3 Polycystic kidney, unspecified; Z90.49 Acquired absence of other specified parts of digestive tract; Z98.890 Other specified postprocedural states; Z91.048 Other nonmedicinal substance allergy status; Z79.891 Long term (current) use of opiate analgesic; Z79.899 Other long term (current) drug therapy; Z87.891 Personal history of nicotine dependence

== ENCOUNTER → 2018-05-11 | Outpatient (REF) | payer MEDICARE ==
[2018-05-14 00:07] LABS: ENDOMYSIAL ABY IgA Negative (Negative); TISSUE TRANSGLUTAMINASE IgA <2 U/mL (0-3)
== END ==
LOC: M LAB REF 17:29
PROVIDERS: ATTEND Internal Medicine
DX: K90.0 Celiac disease (principal)

== ENCOUNTER → 2018-06-07 | Outpatient (CLI) | payer MEDICARE ==
[~2018-06-07] MED LIST changes: +E-Z-PAQUE 96% w/w SUSP 176GM BTL As Ordered ONE; +HYDR-3719 PO; +HYDR25TAB PO; +IBUP80TA PO; +LOSA100T50 PO; +SUCR1TA PO; +TIZA4CAP PO
--- NOTE | 2018-06-08 10:11 | REP ---
Small bowel follow-through The procedure was performed under the direct supervision of Dr. Pruett. The images were reviewed with Dr. Pruett. The student support services director film shows no organomegaly or pathological masses. The intestinal gas pattern is nonspecific. Liquid barium was administered and the barium column was followed through the small bowel to the level of the terminal ileum. Small bowel transit time is approximately 90 minutes . During fluoroscopy gentle palpation shows all loops are freely movable and pliable. There are no fixed or angulated loops. The small bowel mucosal pattern is normal in course and caliber. There is no transition to suggest a partial small bowel obstruction. The cecum is mobile as a lies in the left lower quadrant. Spot filming of the terminal ileum shows it to be unremarkable. Impression: The cecum is mobile as it lies in the left lower quadrant. Otherwise, Small bowel follow-through examination within normal limits. 1.2 minutes of fluoro time was utilized for this procedure. Reviewed by LAURE Issa 06/07/2018 04:39 P Electronically Signed by Yasir Pruett MD 06/08/2018 10:01 A
== END ==
LOC: M RAD 08:14
PROVIDERS: ATTEND Internal Medicine Gastroenterology
DX: K58.2 Mixed irritable bowel syndrome (principal)

== ENCOUNTER 2018-06-15 11:03 | Day surgery (SDC) | payer MEDICARE ==
[~2018-06-15] VITALS: Ht 160 cm; Wt 90.3 kg
[~2018-06-15 11:03] MED LIST changes: -E-Z-PAQUE 96% w/w SUSP 176GM BTL As Ordered ONE; +NS 1,000 ML IV ONE
[2018-06-15] MEDS ORDERED: LIDOCAINE 2% INJ 100 MG/5 ML SDV (FOR ANES.) As Ordered ONE ×2 (12:45→13:19)
[2018-06-15] MEDS ORDERED: fentaNYL 100 MCG/2 ML INJECTION (J3010) As Ordered ONE (12:45)
[2018-06-15] MEDS ORDERED: PROPOFOL 500 MG/50 ML VIAL As Ordered ONE (12:45)
--- NOTE | 2018-06-15 13:00 | ROOR ---
Patient Name: Jessica Victoria Procedure Date: 06/15/2018 12:39 PM Date of : 1970 Age: 47 Room: [facility] Gender: Female Note Status: Finalized Procedure: Upper GI endoscopy Indications: Surveillance for malignancy due to personal history of Freire's esophagus Providers: Fan SHULTZ MD Referring MD: ABIMAEL BEATTY JR, MD Requesting Provider: Medicines: Monitored Anesthesia Care Complications: No immediate complications. Procedure: Pre-Anesthesia Assessment: - The heart rate, respiratory rate, oxygen saturations, blood pressure, adequacy of pulmonary ventilation, and response to care were monitored throughout the procedure. The Endoscope was introduced through the mouth, and advanced to the second part of duodenum. The upper GI endoscopy was accomplished without difficulty. The patient tolerated the procedure well. Findings: There were esophageal mucosal changes consistent with long-segment Freire's esophagus present in the lower third of the esophagus. The maximum longitudinal extent of these mucosal changes was 3 cm in length. Mucosa was biopsied with a cold forceps for histology. A total of 2 specimen bottles were sent to pathology. Small Hiatal Hernia. The entire examined stomach was normal. The examined duodenum was normal. 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 Biopsied. - Small Hiatal Hernia. - Normal stomach. - Normal examined duodenum. Recommendation: - Await pathology results. - Continue present medications. - Repeat upper endoscopy for surveillance based on pathology results. - Repeat upper endoscopy in 3 years for surveillance. Fan Shultz MD Fan SHULTZ MD 06/15/2018 1:00:03 PM This report has been signed electronically. Number of Addenda: 0 Note Initiated On: 06/15/2018 12:39 PM Estimated Blood Loss: Estimated blood loss: none.
[2018-06-15] MEDS ORDERED: PROPOFOL 200 MG/20 ML VIAL As Ordered ONE (13:19)
--- NOTE | 2018-06-15 13:27 | ROOR ---
Patient Name: Jessica Victoria Procedure Date: 06/15/2018 12:40 PM Date of : 1970 Age: 47 Room: [facility] Gender: Female Note Status: Finalized Procedure: Colonoscopy Indications: Irritable bowel syndrome with constipation, Mixed irritable bowel syndrome Providers: Fan MARIE MD Referring MD: ABIMAEL BEATTY JR, MD Requesting Provider: Medicines: Monitored Anesthesia Care Complications: No immediate complications. Procedure: Pre-Anesthesia Assessment: - The heart rate, respiratory rate, oxygen saturations, blood pressure, adequacy of pulmonary ventilation, and response to care were monitored throughout the procedure. The Colonoscope was introduced through the anus and advanced to the cecum, identified by appendiceal orifice and ileocecal valve. The colonoscopy was performed with difficulty due to inadequate bowel prep. Successful completion of the procedure was aided by lavage. The patient tolerated the procedure well. The quality of the bowel preparation was inadequate. (Magnesium Citrate plus Trilyte 4 L) Findings: The perianal and digital rectal examinations were normal. The colon was poorly prepped and required extensive lavage. It appeared grossly normal. Impression: - Preparation of the colon was inadequate. - The entire examined colon is generally normal, free of large polyps or lesions. There is no evidence of any colitis. - Small lesions/polyps may have been missed due to poor prep. - No specimens collected. Recommendation: - Senokot-S 2 tablets PO twice daily. - Repeat colonoscopy in 3 years because the bowel preparation was suboptimal. - (you will need additional colon prep for your next colonoscopy (will use "neurogenic" prep with 8 Liters Golytely) Fan Marie MD Fan MARIE MD 06/15/2018 1:26:48 PM This report has been signed electronically. Number of Addenda: 0 Note Initiated On: 06/15/2018 12:40 PM Estimated Blood Loss: Estimated blood loss: none.
[2018-06-15 13:40] VITALS: BP 141/95
== END 2018-06-15 13:56 | disposition home or self-care (01) ==
LOC: M OPP 11:03
PROVIDERS: ATTEND Internal Medicine Gastroenterology
DX: K58.2 Mixed irritable bowel syndrome (principal); K22.70 Barrett's esophagus without dysplasia; K44.9 Diaphragmatic hernia without obstruction or gangrene
CPT/HCPCS: 43239; 45378; 88305; J3010

== ENCOUNTER → 2018-09-03 | Outpatient (CLI) | payer MEDICARE ==
[~2018-09-03] MED LIST changes: -/DULO30CA OR; -/ESOM40CA; -/ESOM40CA OR; -/SUCR1TA; +CYMB1CAP4; +CYMB1CAP5 OR; +D-3-50003 PO; -DULO20CA; -LIDO1SOL7; +LIDO1SOL8; +NEXI1CAP3; +NEXI1CAP3 OR; -NS 1,000 ML IV ONE; +SUCR1TAB56; +TRAZ1TAB11 PO; -TRAZ25TA PO; -VALS1TAB47 PO; +VALS1TAB67 PO; -VITA1CAP7 PO
--- NOTE | 2018-09-21 02:34 | ECWPNPC ---
PATIENT NAME: FATIMAH DEL VALLE : 1970 GENDER: FEMALE VISIT DATE: 09/03/2018 DISCHARGE DATE: 09/03/18 1438 VISIT LOCKED DATE TIME: PHYSICIAN: JOSAFAT ARRIAGA RESOURCE: JOSAFAT ARRIAGA REASON FOR APPOINTMENT 1. 2 MONTHS HISTORY OF PRESENT ILLNESS HISTORY OF PRESENT ILLNESS: HERE FOR F/U OF CHRONIC HEAD PAIN WITH HISTORY OF TRIGEMINAL NEURALGIA S/P SURGERY WITH COMPLICATIONS.HAS GOOD DAYS AND BAD DAYS.HAS DISABLING EPISODES ABOUT 2XWK.FOLLOWS WITH NEUROLOGY.FOLLOWS W DERMATOLOGY AND OPTHAMALOGY WELL NEPHROLOGY.COMPLAINS OF BURNING JOINTS.CONTINUES TO HAVE INFLAMED PAPULES THAT ARE ITCHING.PAIN VAS RANGES 7/10.HAS TRIALED MARIJUANA AND CBD WHICH WAS INEFFECTIVE. PAIN THE PATIENT DESCRIBES THE PAIN... THE PATIENT DESCRIBES THE PAIN... FALL RISK SCREENING: SCREENING :NO FALLS REPORTED IN THE LAST YEAR CURRENT MEDICATIONS TAKING TEGRETOL XR 200 MG TABLET EXTENDED RELEASE 12 HOUR 2 TABS IN AM, 3 TABS IN PM ORALLY DIRECTED/DR. LAGOS TAKING TOPAMAX 50 50MG TABLET 3 TABLETS ORAL TWICE DAILY TAKING RANITIDINE HCL 150 MG TABLET 1 CAPSULE AT BEDTIME ORALLY ONCE A DAY TAKING VERAPAMIL HCL ER 300 MG CAPSULE EXTENDED RELEASE 24 HOUR 1 CAPSULE ORALLY BEFORE BEDTIME TAKING HYDROCHLOROTHIAZIDE 12.5 12.5MG TABLET 2 TAB(S) ORAL DAILY, NOTES: 25MG DAILY TAKING ELMIRON 100 MG CAPSULE 1 CAPSULE ON AN EMPTY STOMACH ORALLY THREE TIMES A DAY TAKING IMITREX STATDOSE SYSTEM 6 MG/0.5ML KIT ALSO TAKES 100MG TAB PRN SUBCUTANEOUS PRN/H/A TAKING POTASSIUM CHLORIDE 10 10 MEQ TABLET 1 TAB ORAL ONCE DAILY TAKING DEXILANT 60 MG CAPSULE DELAYED RELEASE 1 CAPSULE ORALLY ONCE A DAY TAKING MELATONIN 5 MG TABLET 2 TABLETS AT BEDTIME NEEDED WITH FOOD ORALLY ONCE A DAY TAKING IMITREX 100 MG TABLET 1 TABLET NEEDED ORALLY TWICE A DAY, NOTES: NONE RECENT TAKING CYMBALTA 60 MG CAPSULE DELAYED RELEASE PARTICLES 1 CAPSULE ORALLY TWICE DAILY TAKING LYRICA 100 MG CAPSULE 1 CAPSULE ORALLY DAILY, NOTES: TAKES TOTAL OF 200MG DAILY TAKING BACLOFEN 10 MG TABLET 1 TABLET WITH FOOD OR MILK ORALLY THREE TIMES A DAY TAKING OXYGEN TAKING LOSARTAN POTASSIUM 100 MG TABLET 1 TABLET ORALLY ONCE A DAY TAKING LYRICA 50 MG CAPSULE 1 CAPSULE ORALLY IN AFTERNOON AND AT BEDTIME, NOTES: TAKES TOTAL OF 200MG DAILY TAKING DOXYCYCLINE MONOHYDRATE 100 MG CAPSULE 1 CAPSULE ORALLY BID WITH FOOD AND WATER TAKING WESTCORT OINTMENT VALERATE 0.2% OINTMENT 30G APPLIED TOPICALLY BID TO AREAS ON SCALP, BODY WITH ITCHY SPOTS TAKING HYDROCODONE-ACETAMINOPHEN 10-325 MG TABLET 1 TABLET NEEDED ORALLY EVERY 6 HRS MDD4 TAKING TIZANIDINE HCL 4 MG TABLET 1 TABLET NEEDED ORALLY Q8H PRN TAKING LOTEMAX 0.5 % SUSPENSION 1 DROP INTO AFFECTED EYE OPHTHALMIC THREE TIMES DAILY TAKING RESTASIS 0.05 % EMULSION 1 DROP INTO AFFECTED EYE OPHTHALMIC TWICE A DAY NOT-TAKING NORCO 10-325 MG TABLET 1 ORALLY Q6H PRN MDD4 MEDICATION LIST REVIEWED AND RECONCILED WITH THE PATIENT PAST MEDICAL HISTORY SEASONAL ALLERGIES ENVIRONMENTAL ALLERGIES INTERSTITIAL CYSTITIS ULCERATIVE COLITIS HYPERTENSION MIGRAINE HEADACHE, CLUSTER CUELLAR 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 ESOPHAGUS LUMBAR DISC DISEASE SPINAL FLUID LEAK,FX 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 1 SON(S) . BROTHER PASSED FROM PANCREATIC CANCERONE SISTER HAD BREAST CANCER DENIES FAMILY HX OF SKIN CANCER. SOCIAL HISTORY GENERAL: TOBACCO USE ARE YOU A:FORMER SMOKER HOW LONG HAS IT BEEN SINCE YOU LAST SMOKED?> 10 YEARS PAIN CLINIC PFS, CLERGY, PUBLIC HEALTH REFERRALS PFS REFERRAL NEEDED?NO CLERGY REFERRAL NEEDED?NO PUBLIC HEALTH REFERRAL NEEDED?NO WAS THE PROVIDER NOTIFIED OF ANY PERTINENT INFO?NO HAS THE PATIENT BEEN EDUCATED REGARDING HIS/HER PLAN OF CARE?YES HAS THE PATIENT BEEN EDUCATED REGARDING PAIN, THE RISK FOR PAIN, THE IMPORTANCE OF EFFECTIVE PAIN MANAGEMENT, AND THE PAIN ASSESSMENT PROCESS?YES LATEX QUESTIONNAIRE LATEX ALLERGY : HAVE YOU EVER DEVELOPED ANY TYPE OF REACTION AFTER HANDLING LATEX PRODUCTS SUCH RUBBER GLOVES, CONDOMS, DIAPHRAGMS, BALLOONS, SOCKS, OR UNDERWEAR?NO LATEX ALLERGY : HAVE YOU EVER DEVELOPED ANY TYPE OF REACTION DURING OR AFTER DENTAL APPOINTMENT, VAGINAL/RECTAL EXAMINATION, SURGICAL PROCEDURE, OR ANY OTHER EXPOSURE?NO LATEX RISK : HAVE YOU EVER HAD ANY DIFFICULTY BREATHING OR HIVES AFTER EATING OR HANDLING ANY FRUITS, OR VEGETABLES; SUCH KIWI, BANANAS, STONE FRUITS, OR CHESTNUTSNO LATEX RISK : DO YOU HAVE A PREVIOUS PERSONAL HISTORY OF MORE THAN NINE SURGERIES, SPINA BIFIDA, OR REPEATED CATHERTIZATIONS? YES - PLEASE INDICATE : > 9 SURGERIES LATEX RISK : ARE YOU FREQUENTLY EXPOSED TO LATEX PRODUCTS IN YOUR OCCUPATION?NO DATE ASKED : 09/03/2018 OTHERS AT HOME: SPOUSE AND SON. CAFFEINE CAFFEINE USE?YES HOW OFTEN AND HOW MUCH? DAILY/1 CUP ADVANCE DIRECTIVE ADVANCE DIRECTIVE DISCUSSED WITH PATIENT:YES PT DOES NOT HAVE HCP AND DECLINES INFO AND ASSISTANCE WITH FORM AT THIS TIME. RASTAFARIAN [id number] HINDUISM LANGUAGE LANGUAGES SPOKEN:GREENLANDIC MARITAL STATUS: . ALCOHOL SCREENING DID YOU HAVE A DRINK CONTAINING ALCOHOL IN THE PAST YEAR?NO POINTS0 INTERPRETATIONNEGATIVE RECREATIONAL DRUG USE DRUG USE?NO PATIENT DENIES ABUSE OR MISSUSED OF ANY MEDICATION. PATIENT DENIES USE OF ANY ILLEGAL SUBSTANCE INCLUDING MARIJUANA OR COCAINE. LEARNING BARRIERS / SPECIAL NEEDS CHANGE FROM LAST VISIT?NO BARRIERS TO LEARNING?NO HEARING IMPAIRED?NO VISION IMPAIRED?YES :CORRECTIVE LENSES COGNITIVELY IMPAIRED?NO READINESS TO LEARN?YES LEARNING PREFERENCES?NO LEARNING CAPABILITIES PRESENT?YES EMOTIONAL BARRIERS?NO SPECIAL DEVICES?NO SPECIAL DELIVERY MESSENGER NEEDED?NO REVEIWED WITH PT 05/10/18 1030 BVREVIEWED WITH PATIENT 09/03/18 1335 JS. HOSPITALIZATION/MAJOR DIAGNOSTIC PROCEDURE RELATED TO SURG REVIEW OF SYSTEMS REVIEWED BY: PROVIDER: JOSAFAT ADLER . CONSTITUTIONAL: ANY CHANGE IN YOUR MEDICAL CONDITION? YES, NEW SKIN RASH AND HER EYES ARE WORSENING . CHILLS NO . FEVER NO . INFECTION: DO YOU HAVE NEW INFECTIONS? NO . DO YOU HAVE HISTORY OF MRSA? NO . MUSCULOSKELETAL: ANY NEW PATTERNS OF PAIN OR NUMBNESS? YES, STATES RIGHT THIGH NUMB WHEN SHE STANDS . GASTROENTEROLOGY: ANY NEW CHANGE IN BOWEL CONTROL? NO . GENITOURINARY: ANY NEW CHANGE IN BLADDER CONTROL? NO . IS THERE A CHANCE YOU COULD BE ? NO . HEMATOLOGY/LYMPH: DO YOU TAKE ANY BLOOD THINNERS? (FOR EXAMPLE- COUMADIN, PLAVIX, AGGRENOX, PLATEL, PRADAXA, OR XARELTO) NO . WHEN WAS YOUR LAST DOSE? DATE: TIME: . NEUROLOGY: HAVE YOU FALLEN IN THE PAST 12 MONTHS? YES, FALL PRIOR TO LAST VISIT, DISCUSSED AT PREVIOUS VISIT . ANY NEW EXTREMITY NUMBNESS OR WEAKNESS? YES, STATES RIGHT THIGH NUMB WHEN SHE STANDS, STARTED APPROX 1 MONTH AGO . CARDIOLOGY: DO YOU HAVE A PACEMAKER OR DEFIBRILLATOR? NO . RESPIRATORY: HAVE YOU BEEN SICK IN THE PAST WEEK? NO . FEVER NO . FLU LIKE SYMPTOMS? NO . COUGH NO . INTEGUMENTARY: DO YOU HAVE ANY RASHES OR OPEN SORES? YES, STATES RASH TO SCALP DUE TO NEW SKIN DIAGNOSIS LICHEN PLANUS . ALLERGIC/IMMUNO: ARE YOU ALLERGIC TO IV DYE? NO . ANY NEW ALLERGIES? NO . PSYCHIATRIC: DO YOU HAVE THOUGHTS OF HURTING YOURSELF OR SOMEONE ELSE? NO . ARE YOU ABUSED, NEGLECTED, OR IN AN UNSAFE ENVIRONMENT? NO . ENDOCRINOLOGY: ARE YOU DIABETIC? NO . OTHER: DO YOU NEED ANY PRESCRIPTIONS? YES . IF YES, PLEASE LIST: ____HYDROCODONE . ANY NEW PROBLEMS WITH YOUR MEDICATIONS? NO . WHEN DID YOU LAST EAT? ____ . WHEN DID YOU LAST DRINK? ____ . WHAT DID YOU LAST DRINK? ____ . NAME OF PERSON DRIVING YOU HOME? ____ . DO YOU HAVE ANY OTHER QUESTIONS OR CONCERNS YES, PATIENT STATES SHE CHOKED ON A PIECE OF STEAK THIS PAST THURSDAY, PATIENT'S HAD TO DO THE [employer] MANUEVER TO GET THE STEAK OUT. PATIENT ADMITS SHE HAS DIFFICULTY SWALLOWING ON A REGULAR BASIS. SHE DID NOT GO TO THE HOSPITAL AFTER. STATES SHE IS STILL HAVING CHEST PAIN DUE TO IT . VITAL SIGNS WT 200.2 LBS, HT 62 1/2, BMI 36.03 INDEX, BP 142/93 MM HG, HR 91 /MIN, RR 18 /MIN, TEMP 97.9 F, OXYGEN SAT % 97%, SAFE IN ENV? (Y/N) YES, NA INITIALS AW 1317, REVIEWED BY: CHELSIE09/03/18 DISCUSSED ELEVATED BP WITH PATIENT. INFORMED HER TO NOTIFY HER PCP IF IT CONTINUES TO BE ELEVATED ON MULTIPLE OCCASSIONS. PATIENT VERBALIZED AN UNDERSTANDING. PATIENT STATES SHE SAW DR. VARGAS YESTERDAY, THE ELEVATED BP MAY BE DUE TO HER INCREASING KIDNEY PROBLEMS. JS. EXAMINATION GENERAL EXAMINATION: GENERAL APPEARANCE:AWAKE,ALERT ,PLEAASANT . PSYCHAFFECT NORMAL . LUNGS:LUNG MONTIEL ARE CLEAR TO AUSCULTATION BILATERALLY. GOOD MOVEMENT OF AIR . HEART:S1, S2 IN A REGULAR RATE AND RHYTHM. NO SIGNIFICANT MURMURS, RUBS OR GALLOPS NOTED . 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 POLYCYSTIC KIDNEY DISEASE - Q61.2 TREATMENT ATYPICAL FACIAL PAIN CONTINUE LYRICA CAPSULE, 100 MG, 1 CAPSULE, ORALLY, DAILY, NOTES: TAKES TOTAL OF 200MG DAILY CONTINUE CYMBALTA CAPSULE DELAYED RELEASE PARTICLES, 60 MG, 1 CAPSULE, ORALLY, TWICE DAILY REFILL HYDROCODONE-ACETAMINOPHEN TABLET, 10-325 MG, 1 TABLET NEEDED, ORALLY, EVERY 6 HRS MDD4, 30 DAY(S), 120, REFILLS 0 CONTINUE TIZANIDINE HCL TABLET, 4 MG, 1 TABLET NEEDED, ORALLY, Q8H PRN START NUCYNTA ER TABLET EXTENDED RELEASE 12 HOUR, 100 MG, 1 TABLET, ORALLY, EVERY 12 HRS MDD2, 30 DAY(S), 60, REFILLS 0 NOTES: ISTOP REGISTRY REVIEWED AND DEMONSTRATES COMPLLIANCE. BRINGS IN MEDICATIONS WHICH IS APPROPRIATE FOR WHAT WAS DISPENSED. RECENT URINE TOXICOLOGY REVIEWED. NO UNAUTHORIZED MEDICATIONS. PRESCRIBED MEDICATIONS WERE PRESENT. URINE WAS POSITIVE FOR MARIJUANA /THC AND SHE IS TELLLING ME THIS WAS MEDICAL MARIJUANA TRIAL.SHE ISNFORMS ME THAT MARIJUANA DIDNT HELP PAIN AND SHE DIDNT LIKE SIDE EFFECTS.INFORMED HER THAT I WOULDNT BE ABLE TO PRESCRIBE NARCOTIC PAIN MEDICATION IN FUTURE IF SHE HAS THC IN URINE AND SHE APPEARS TO UNDERSTAND., RISKS AND BENEFITS OF NARCOTIC/OPIOD MEDICATIONS WERE REVIEWED WITH PATIENT - THIS INCLUDES BUT IS NOT LIMITED TO RISK OF DEPENDANCE/DEVELOPMENT OF ADDICTION, MOOD DISTURBANCE AND DEPRESSION, OSTEOPOROSIS, HORMONAL AND LABIDAL CHANGES, RESPIRATORY DEPRESSION AND . PATIENT IS ADVISED NOT TO DRIVE OR DRINK ALCOHOL WHILE ON THESE MEDICATIONS. PREVENTIVE MEDICINE PAIN CLINIC TEACHING: MEDICATIONS PRINTED AND REVIEWED INFORMATION ON NEW MEDICATION, NUCYNTA, WITH PATIENT. PATIENT VERBALIZED AN UNDERSTANDING. DYLON GAFFNEY 09/03/2018 2:39:25 PM > . PROCEDURE CODES FA211 ESTABILISHED PATIENT [facility] CHARGE DISPOSITION & COMMUNICATION FOLLOW UP 6-8WKS ELECTRONICALLY SIGNED BY NAYELY CHAVEZ ON 09/20/2018 AT 02:44 PM EDT DISCLAIMER : THIS IS A VISIT SUMMARY EXTRACTED FROM THE [employer] CHART. IT IS NOT A COPY OF THE [employer] PROGRESS NOTE. KITD
== END ==
LOC: M PAIN 13:15
PROVIDERS: ATTEND Nurse Practitioner Family
DX: G50.1 Atypical facial pain (principal); G89.29 Other chronic pain; G50.0 Trigeminal neuralgia; Q61.2 Polycystic kidney, adult type; I10 Essential (primary) hypertension; G43.909 Migraine, unspecified, not intractable, without status migrainosus; M79.7 Fibromyalgia; Z87.891 Personal history of nicotine dependence; Z88.8 Allergy status to other drugs, medicaments and biological substances; Z91.09 Other allergy status, other than to drugs and biological substances; Z79.899 Other long term (current) drug therapy

== ENCOUNTER → 2019-01-03 | Outpatient (REF) | payer MEDICARE ==
[~2019-01-03] MED LIST changes: -ALL10TAB28 PO; +ALL10TAB29 PO
== END ==
LOC: M SFHCPLAZ 09:50
PROVIDERS: ATTEND Dermatology
DX: R23.8 Other skin changes (principal)

== ENCOUNTER → 2019-01-04 | Outpatient (CLI) | payer MEDICARE ==
--- NOTE | 2019-01-05 23:45 | ECWPNPC ---
PATIENT NAME: FATIMAH DEL VALLE : 1970 GENDER: FEMALE VISIT DATE: 01/04/2019 DISCHARGE DATE: 01/04/19 1534 VISIT LOCKED DATE TIME: PHYSICIAN: CLAUDY SANABRIA RESOURCE: CLAUDY SANABRIA REASON FOR APPOINTMENT 1. HEAD PAIN HISTORY OF PRESENT ILLNESS HISTORY OF PRESENT ILLNESS: PAIN THE PATIENT DESCRIBES THE PAIN... 48-YEAR-OLD FEMALE IN FOR CHRONIC PAIN FOLLOW-UP. SHE RATES HER PAIN AT A 2 OUT OF 10 AND DESCRIBES IT ACHING, SHARP, BURNING, STABBING, SORE, SHOOTING, AND TENDER. SHE FEELS THE MEDICATIONS ARE WORKING WELL AND DENIES MED SIDE EFFECTS AT THIS TIME. SHE DOES ADMIT TO SOME TENDERNESS IN THE LEFT SIDE OF HER NECK. FALL RISK SCREENING: SCREENING :NO FALLS REPORTED IN THE LAST YEAR CURRENT MEDICATIONS TAKING TEGRETOL XR 200 MG TABLET EXTENDED RELEASE 12 HOUR 2 TABS IN AM, 3 TABS IN PM ORALLY DIRECTED/DR. LAGOS TAKING TOPAMAX 50 50MG TABLET 3 TABLETS ORAL TWICE DAILY TAKING VERAPAMIL HCL ER 300 MG CAPSULE EXTENDED RELEASE 24 HOUR 1 CAPSULE ORALLY BEFORE BEDTIME TAKING ELMIRON 100 MG CAPSULE 1 CAPSULE ON AN EMPTY STOMACH ORALLY THREE TIMES A DAY TAKING IMITREX STATDOSE SYSTEM 6 MG/0.5ML KIT ALSO TAKES 100MG TAB PRN SUBCUTANEOUS PRN/H/A TAKING DEXILANT 60 MG CAPSULE DELAYED RELEASE 1 CAPSULE ORALLY ONCE A DAY TAKING MELATONIN 5 MG TABLET 2 TABLETS AT BEDTIME NEEDED WITH FOOD ORALLY ONCE A DAY TAKING IMITREX 100 MG TABLET 1 TABLET NEEDED ORALLY TWICE A DAY, NOTES: NONE RECENT TAKING BACLOFEN 10 MG TABLET 1 TABLET WITH FOOD OR MILK ORALLY THREE TIMES A DAY TAKING LOSARTAN POTASSIUM 100 MG TABLET 1 TABLET ORALLY ONCE A DAY TAKING RESTASIS 0.05 % EMULSION 1 DROP INTO AFFECTED EYE OPHTHALMIC TWICE A DAY TAKING CYMBALTA 60 MG CAPSULE DELAYED RELEASE PARTICLES 1 CAPSULE ORALLY TWICE DAILY TAKING NUCYNTA ER 100 MG TABLET EXTENDED RELEASE 12 HOUR 1 TABLET ORALLY EVERY 12 HRS MDD2 TAKING HYDROCODONE-ACETAMINOPHEN 10-325 MG TABLET 1 TABLET NEEDED ORALLY EVERY 6 HRS MDD4 TAKING TIZANIDINE HCL 4 MG TABLET 1 TABLET NEEDED ORALLY Q8H PRN TAKING SENNA 8.6 MG TABLET 2 TABLETS AT BEDTIME NEEDED ORALLY ONCE A DAY TAKING DOXYCYCLINE MONOHYDRATE 50 MG CAPSULE 1 CAPSULE ORALLY BID WITH FOOD AND WATER TAKING WESTCORT OINTMENT VALERATE 0.2% OINTMENT 30G APPLIED TOPICALLY BID TO AREAS ON BODY WITH ITCHY SPOTS TAKING CLOBETASOL PROPIONATE 0.05 % SOLUTION 1 APPLICATION TO AFFECTED AREA EXTERNALLY TWICE A DAY TO AREAS ON SCALP THAT ITCH TAKING [id number]-CYSTEINE 600 MG CAPSULE 1 CAPSULE ORALLY BID TAKING HYDROCHLOROTHIAZIDE 25 MG TABLET 1 TABLET IN THE MORNING ORALLY ONCE A DAY NOT-TAKING RANITIDINE HCL 150 MG TABLET 1 CAPSULE AT BEDTIME ORALLY ONCE A DAY NOT-TAKING POTASSIUM CHLORIDE 10 10 MEQ TABLET 1 TAB ORAL ONCE DAILY NOT-TAKING LYRICA 50 MG CAPSULE 1 CAPSULE ORALLY IN MORNING AND AT BEDTIME, NOTES: SATTES SHE IS NOT TAKING NOT-TAKING OXYGEN NOT-TAKING LOTEMAX 0.5 % SUSPENSION 1 DROP INTO AFFECTED EYE OPHTHALMIC THREE TIMES DAILY NOT-TAKING LYRICA 100 MG CAPSULE 1 CAPSULE ORALLY DAILY, NOTES: TAKES TOTAL OF 200MG DAILY NOT-TAKING NORCO 10-325 MG TABLET 1 ORALLY Q6H PRN MDD4 MEDICATION LIST REVIEWED AND RECONCILED WITH THE PATIENT PAST MEDICAL HISTORY SEASONAL ALLERGIES ENVIRONMENTAL ALLERGIES INTERSTITIAL CYSTITIS ULCERATIVE COLITIS HYPERTENSION MIGRAINE HEADACHE, CLUSTER CUELLAR 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 ESOPHAGUS LUMBAR DISC DISEASE SPINAL FLUID LEAK,FX 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 FIBROMYALGIA MCLEAN'S PALSY MONONUCLEOSIS DERMATITIS SCALP LICHEN PLANUS ALLERGIES TAPE ADHESIVE : OOZING RASH - ALLERGY PROTONIX: HEMORRHAGE LYRICA: SUICIDAL IDEATIONS - SIDE EFFECTS SURGICAL HISTORY DECOMPRESSION SURGERY 2005 BLADDER SURGERY LAMINECTOMY X 3 GAMMA KNIFE SURGERY TOE SURGERY-LEFT GREAT LAPAROSCOPY-EXPLORATORY CHOLECYSTECTOMY BALLOON COMPRESSION-BRAIN LAPAROSCOPIC TRIGEMINAL NERVE BLOCK TEMPORAL NERVE SURGERY 12/2013 FAMILY HISTORY FATHER: , DIAGNOSED WITH UNSPECIFIED CEREBRAL ARTERY OCCLUSION WITH CEREBRAL INFARCTION MOTHER: , UNSPECIFIED HEART DISEASE 6 BROTHER(S) , 3 SISTER(S) . 1 SON(S) . BROTHER PASSED FROM PANCREATIC CANCERONE SISTER HAD BREAST CANCER DENIES FAMILY HX OF SKIN CANCER. SOCIAL HISTORY GENERAL: TOBACCO USE ARE YOU A:FORMER SMOKER HOW LONG HAS IT BEEN SINCE YOU LAST SMOKED?> 10 YEARS PAIN CLINIC PFS, CLERGY, PUBLIC HEALTH REFERRALS PFS REFERRAL NEEDED?NO CLERGY REFERRAL NEEDED?NO PUBLIC HEALTH REFERRAL NEEDED?NO WAS THE PROVIDER NOTIFIED OF ANY PERTINENT INFO?NO HAS THE PATIENT BEEN EDUCATED REGARDING HIS/HER PLAN OF CARE?YES HAS THE PATIENT BEEN EDUCATED REGARDING PAIN, THE RISK FOR PAIN, THE IMPORTANCE OF EFFECTIVE PAIN MANAGEMENT, AND THE PAIN ASSESSMENT PROCESS?YES LATEX QUESTIONNAIRE LATEX ALLERGY : HAVE YOU EVER DEVELOPED ANY TYPE OF REACTION AFTER HANDLING LATEX PRODUCTS SUCH RUBBER GLOVES, CONDOMS, DIAPHRAGMS, BALLOONS, SOCKS, OR UNDERWEAR?NO LATEX ALLERGY : HAVE YOU EVER DEVELOPED ANY TYPE OF REACTION DURING OR AFTER DENTAL APPOINTMENT, VAGINAL/RECTAL EXAMINATION, SURGICAL PROCEDURE, OR ANY OTHER EXPOSURE?NO DATE ASKED : 09/03/2018 LATEX RISK : HAVE YOU EVER HAD ANY DIFFICULTY BREATHING OR HIVES AFTER EATING OR HANDLING ANY FRUITS, OR VEGETABLES; SUCH KIWI, BANANAS, STONE FRUITS, OR CHESTNUTSNO LATEX RISK : DO YOU HAVE A PREVIOUS PERSONAL HISTORY OF MORE THAN NINE SURGERIES, SPINA BIFIDA, OR REPEATED CATHERIZATIONS? YES - PLEASE INDICATE : > 9 SURGERIES LATEX RISK : ARE YOU FREQUENTLY EXPOSED TO LATEX PRODUCTS IN YOUR OCCUPATION?NO OTHERS AT HOME: SPOUSE AND SON. CAFFEINE CAFFEINE USE?YES HOW OFTEN AND HOW MUCH? DAILY/1 CUP ADVANCE DIRECTIVE ADVANCE DIRECTIVE DISCUSSED WITH PATIENT:YES PT DOES NOT HAVE HCP AND DECLINES INFO AND ASSISTANCE WITH FORM AT THIS TIME. ALEVISM [id number] RASTAFARIAN LANGUAGE LANGUAGES SPOKEN:ICELANDIC MARITAL STATUS: . ALCOHOL SCREENING DID YOU HAVE A DRINK CONTAINING ALCOHOL IN THE PAST YEAR?NO POINTS0 INTERPRETATIONNEGATIVE RECREATIONAL DRUG USE DRUG USE?NO PATIENT DENIES ABUSE OR MISSUSED OF ANY MEDICATION. PATIENT DENIES USE OF ANY ILLEGAL SUBSTANCE INCLUDING MARIJUANA OR COCAINE. LEARNING BARRIERS / SPECIAL NEEDS CHANGE FROM LAST VISIT?NO 01/03/19 BARRIERS TO LEARNING?NO HEARING IMPAIRED?NO VISION IMPAIRED?YES COGNITIVELY IMPAIRED?NO :CORRECTIVE LENSES READINESS TO LEARN?YES LEARNING PREFERENCES?NO LEARNING CAPABILITIES PRESENT?YES EMOTIONAL BARRIERS?NO SPECIAL DEVICES?NO ORTHOPEDIC NURSE PRACTITIONER NEEDED?NO REVEIWED WITH PT 05/10/18 1030 BVREVIEWED WITH PATIENT 09/03/18 1335 JSREVIEWED WITH PT 01/04/19 1431 NLJ. HOSPITALIZATION/MAJOR DIAGNOSTIC PROCEDURE RELATED TO SURG REVIEW OF SYSTEMS REVIEWED BY: PROVIDER: MECCA DE ANDA . CONSTITUTIONAL: ANY CHANGE IN YOUR MEDICAL CONDITION? NO . CHILLS NO . FEVER NO . INFECTION: DO YOU HAVE NEW INFECTIONS? NO . DO YOU HAVE HISTORY OF MRSA? NO . MUSCULOSKELETAL: ANY NEW PATTERNS OF PAIN OR NUMBNESS? YES- RIGHT HAND AND LAST 2 FINGERS FEEL PAINFUL, UNDERSIDE OF LEFT BIG TOE IS NUMBNESS NAD SHOKING FEELING, RIGHT LEG AND THIGH IS COMPLETLY NUMB WHEN SHE STANDS FOR LONG PERIODS, SATTES RIGHT SIDE OF NECK IS ALSO TENDER . GASTROENTEROLOGY: ANY NEW CHANGE IN BOWEL CONTROL? NO . GENITOURINARY: ANY NEW CHANGE IN BLADDER CONTROL? NO . IS THERE A CHANCE YOU COULD BE ? NO . HEMATOLOGY/LYMPH: DO YOU TAKE ANY BLOOD THINNERS? (FOR EXAMPLE- COUMADIN, PLAVIX, AGGRENOX, PLATEL, PRADAXA, OR XARELTO) NO . WHEN WAS YOUR LAST DOSE? DATE: TIME: . NEUROLOGY: HAVE YOU FALLEN IN THE PAST 12 MONTHS? NO . ANY NEW EXTREMITY NUMBNESS OR WEAKNESS? YES- STATES RIGHT LOWER FOREARM AND LAST 2 FINGERS ARE PAINFUL . CARDIOLOGY: DO YOU HAVE A PACEMAKER OR DEFIBRILLATOR? NO . RESPIRATORY: HAVE YOU BEEN SICK IN THE PAST WEEK? NO . FEVER NO . FLU LIKE SYMPTOMS? NO . COUGH NO . INTEGUMENTARY: DO YOU HAVE ANY RASHES OR OPEN SORES? YES- STATES SHE HAS OPEN SORES ON FACE AND SCALP . ALLERGIC/IMMUNO: ARE YOU ALLERGIC TO IV DYE? NO . ANY NEW ALLERGIES? NO . PSYCHIATRIC: DO YOU HAVE THOUGHTS OF HURTING YOURSELF OR SOMEONE ELSE? NO . ARE YOU ABUSED, NEGLECTED, OR IN AN UNSAFE ENVIRONMENT? NO . ENDOCRINOLOGY: ARE YOU DIABETIC? NO . OTHER: DO YOU NEED ANY PRESCRIPTIONS? NO . IF YES, PLEASE LIST: ____ . ANY NEW PROBLEMS WITH YOUR MEDICATIONS? YES- LYRICA- STOPPED TAKING IT, CAUSED HAND TREMORS, DEPRESSION AND SUICIDAL IDEATION . WHEN DID YOU LAST EAT? ____ . WHEN DID YOU LAST DRINK? ____ . WHAT DID YOU LAST DRINK? ____ . NAME OF PERSON DRIVING YOU HOME? ____ . DO YOU HAVE ANY OTHER QUESTIONS OR CONCERNS NO . VITAL SIGNS WT 193.6 LBS, HT 62 1/2, BMI 34.84 INDEX, BP 184/111 MM HG, HR 90 /MIN, RR 20 /MIN, TEMP 97.5 F, OXYGEN SAT % 98%, SAFE IN ENV? (Y/N) YES, NA INITIALS SC 14:31, REVIEWED BY: DARNELLJRN IS AWARE OF PT'S BP.- STATES SHE JUST WENT [employer] SATTES AT HER PCP YESTERDAY WAS 124/81 AND STATES SHE HAS BEEN TAKAING MEDS FOR ALLERGIES 01/04/19 1446 NL. EXAMINATION GENERAL EXAMINATION: GENERALNO ACUTE DISTRESS, WELL NOURISHED AND HYDRATED. PSYCHAPPROPRIATE MOOD AND AFFECT . LUNGS:CLEAR TO AUSCULTATION BILATERALLY, NO WHEEZES, RHONCHI, RALES. HEART:NO MURMURS, REGULAR RATE AND RHYTHM. ASSESSMENTS CHRONIC INTRACTABLE HEADACHE, UNSPECIFIED HEADACHE TYPE - R51 (PRIMARY) TREATMENT CHRONIC INTRACTABLE HEADACHE, UNSPECIFIED HEADACHE TYPE CLINICAL NOTES: 48-YEAR-OLD FEMALE IN FOR CHRONIC PAIN FOLLOW-UP. GIVEN PRESENTING SYMPTOMS AND RESULTS PHYSICAL EXAMINATION RECOMMENDED CONTINUATION OF CURRENT MEDICATION REGIMEN WITH FOLLOW-UP IN 3 MONTHS. DISCUSSED TENDERNESS IN THE PATIENT'S LEFT NECK RECOMMENDED APPLICATION OF HEAT 3 TIMES A DAY 10-15 MINUTES AT A TIME. FURTHER RECOMMENDED FOLLOW-UP WITH NEURO SHOULD PAIN PERSIST AND/OR WORSEN PATIENT HAS A HX OF CRANIAL NERVE ISSUES. PATIENT HAS EXPRESSED UNDERSTANDING OF AND WAS IN AGREEMENT WITH TREATMENT PLAN. GIVEN TIME TO ASK QUESTIONS AND EXPRESS CONCERNS., ISTOP REGISTRY REVIEWED AND DEMONSTRATES COMPLLIANCE. (REF # [id number] ) BRINGS IN MEDICATIONS WHICH IS APPROPRIATE FOR WHAT WAS DISPENSED. RECENT URINE TOXICOLOGY REVIEWED. NO UNAUTHORIZED MEDICATIONS. NO ILLICIT SUBSTANCES AND PRESCRIBED MEDICATIONS WERE PRESENT. PROCEDURE CODES FA211 ESTABILISHED PATIENT [facility] CHARGE DISPOSITION & COMMUNICATION FOLLOW UP 3 MONTHS (REASON: CHRONIC PAIN ) ELECTRONICALLY SIGNED BY NAYELY DILLON ON 01/05/2019 AT 03:51 PM EDT DISCLAIMER : THIS IS A VISIT SUMMARY EXTRACTED FROM THE [employer] CHART. IT IS NOT A COPY OF THE [employer] PROGRESS NOTE. BLANCA
== END ==
LOC: M PAIN 14:15
PROVIDERS: ATTEND Family Medicine
DX: R51 Headache (principal); G89.29 Other chronic pain; I10 Essential (primary) hypertension; M79.7 Fibromyalgia; Z87.891 Personal history of nicotine dependence; Z88.8 Allergy status to other drugs, medicaments and biological substances; Z91.09 Other allergy status, other than to drugs and biological substances; Z79.899 Other long term (current) drug therapy

== ENCOUNTER → 2019-03-21 | Outpatient (REF) | payer MEDICARE ==
[~2019-03-21] MED LIST changes: -VERA300C PO; +VERA300C6 PO
== END ==
LOC: M LAB REF 13:27
PROVIDERS: ATTEND Nurse Practitioner Family
DX: J02.9 Acute pharyngitis, unspecified (principal)

== ENCOUNTER → 2019-04-11 | Outpatient (CLI) | payer MEDICARE ==
--- NOTE | 2019-04-13 03:41 | ECWPNPC ---
PATIENT NAME: FATIMAH DEL VALLE : 1970 GENDER: FEMALE VISIT DATE: 04/11/2019 DISCHARGE DATE: 04/11/19 1017 VISIT LOCKED DATE TIME: PHYSICIAN: CLAUDY SANABRIA RESOURCE: CLAUDY SANABRIA REASON FOR APPOINTMENT 1. 3 MO HISTORY OF PRESENT ILLNESS HISTORY OF PRESENT ILLNESS: PAIN THE PATIENT DESCRIBES THE PAIN... 48-YEAR-OLD FEMALE IN FOR CHRONIC PAIN FOLLOW-UP. SHE RATES HER PAIN CURRENTLY AT A 4 OUT OF 10 AND DESCRIBES IT ACHING, BURNING, SHARP, STABBING, SORE, SHOOTING, AND TENDER. SHE DOES ADMIT TO AN EXACERBATION OF HER FIBROMYALGIA SYMPTOMS BUT FEELS THIS IS RELATED TO DISCONTINUATION OF HER LYRICA AND SHE WOULD LIKE TO DISCUSS RESTARTING HER LYRICA. FALL RISK SCREENING: SCREENING :NO FALLS REPORTED IN THE LAST YEAR CURRENT MEDICATIONS TAKING TEGRETOL XR 200 MG TABLET EXTENDED RELEASE 12 HOUR 2 TABS IN AM, 3 TABS IN PM ORALLY DIRECTED/DR. LAGOS TAKING TOPAMAX 50 50MG TABLET 3 TABLETS ORAL TWICE DAILY TAKING VERAPAMIL HCL ER 300 MG CAPSULE EXTENDED RELEASE 24 HOUR 1 CAPSULE ORALLY BEFORE BEDTIME TAKING ELMIRON 100 MG CAPSULE 1 CAPSULE ON AN EMPTY STOMACH ORALLY THREE TIMES A DAY TAKING IMITREX STATDOSE SYSTEM 6 MG/0.5ML KIT ALSO TAKES 100MG TAB PRN SUBCUTANEOUS PRN/H/A TAKING DEXILANT 60 MG CAPSULE DELAYED RELEASE 1 CAPSULE ORALLY ONCE A DAY TAKING MELATONIN 5 MG TABLET 2 TABLETS AT BEDTIME NEEDED WITH FOOD ORALLY ONCE A DAY TAKING IMITREX 100 MG TABLET 1 TABLET NEEDED ORALLY TWICE A DAY, NOTES: NONE RECENT TAKING BACLOFEN 10 MG TABLET 1 TABLET WITH FOOD OR MILK ORALLY THREE TIMES A DAY TAKING LOSARTAN POTASSIUM 100 MG TABLET 1 TABLET ORALLY ONCE A DAY TAKING RESTASIS 0.05 % EMULSION 1 DROP INTO AFFECTED EYE OPHTHALMIC TWICE A DAY TAKING CYMBALTA 60 MG CAPSULE DELAYED RELEASE PARTICLES 1 CAPSULE ORALLY TWICE DAILY TAKING TIZANIDINE HCL 4 MG TABLET 1 TABLET NEEDED ORALLY Q8H PRN TAKING SENNA 8.6 MG TABLET 2 TABLETS AT BEDTIME NEEDED ORALLY ONCE A DAY TAKING WESTCORT OINTMENT VALERATE 0.2% OINTMENT 30G APPLIED TOPICALLY BID TO AREAS ON BODY WITH ITCHY SPOTS TAKING CLOBETASOL PROPIONATE 0.05 % SOLUTION 1 APPLICATION TO AFFECTED AREA EXTERNALLY TWICE A DAY TO AREAS ON SCALP THAT ITCH TAKING HYDROCHLOROTHIAZIDE 25 MG TABLET 1 TABLET IN THE MORNING ORALLY ONCE A DAY TAKING NUCYNTA ER 100 MG TABLET EXTENDED RELEASE 12 HOUR 1 TABLET ORALLY EVERY 12 HRS MDD2 TAKING HYDROCODONE-ACETAMINOPHEN 10-325 MG TABLET 1 TABLET NEEDED ORALLY EVERY 6 HRS MDD4 NOT-TAKING DOXYCYCLINE MONOHYDRATE 50 MG CAPSULE 1 CAPSULE ORALLY BID WITH FOOD AND WATER NOT-TAKING S-IGAWBL-D-CYSTEINE 600 MG CAPSULE 1 CAPSULE ORALLY BID NOT-TAKING RANITIDINE HCL 150 MG TABLET 1 CAPSULE AT BEDTIME ORALLY ONCE A DAY NOT-TAKING POTASSIUM CHLORIDE 10 10 MEQ TABLET 1 TAB ORAL ONCE DAILY NOT-TAKING LYRICA 50 MG CAPSULE 1 CAPSULE ORALLY IN MORNING AND AT BEDTIME, NOTES: SATTES SHE IS NOT TAKING NOT-TAKING OXYGEN NOT-TAKING LOTEMAX 0.5 % SUSPENSION 1 DROP INTO AFFECTED EYE OPHTHALMIC THREE TIMES DAILY NOT-TAKING LYRICA 100 MG CAPSULE 1 CAPSULE ORALLY DAILY, NOTES: TAKES TOTAL OF 200MG DAILY NOT-TAKING NORCO 10-325 MG TABLET 1 ORALLY Q6H PRN MDD4 MEDICATION LIST REVIEWED AND RECONCILED WITH THE PATIENT PAST MEDICAL HISTORY SEASONAL ALLERGIES ENVIRONMENTAL ALLERGIES INTERSTITIAL CYSTITIS ULCERATIVE COLITIS HYPERTENSION MIGRAINE HEADACHE, CLUSTER CUELLAR 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 ESOPHAGUS LUMBAR DISC DISEASE SPINAL FLUID LEAK,FX 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 FIBROMYALGIA MCLEAN'S PALSY MONONUCLEOSIS DERMATITIS SCALP LICHEN PLANUS ALLERGIES TAPE ADHESIVE : OOZING RASH - ALLERGY PROTONIX: HEMORRHAGE LYRICA: SUICIDAL IDEATIONS - SIDE EFFECTS SURGICAL HISTORY DECOMPRESSION SURGERY 2004 BLADDER SURGERY LAMINECTOMY X 3 GAMMA KNIFE SURGERY TOE SURGERY-LEFT GREAT LAPAROSCOPY-EXPLORATORY CHOLECYSTECTOMY BALLOON COMPRESSION-BRAIN LAPAROSCOPIC TRIGEMINAL NERVE BLOCK TEMPORAL NERVE SURGERY 12/2013 FAMILY HISTORY FATHER: , DIAGNOSED WITH UNSPECIFIED CEREBRAL ARTERY OCCLUSION WITH CEREBRAL INFARCTION MOTHER: , UNSPECIFIED HEART DISEASE 6 BROTHER(S) , 3 SISTER(S) . 1 SON(S) . BROTHER PASSED FROM PANCREATIC CANCERONE SISTER HAD BREAST CANCER DENIES FAMILY HX OF SKIN CANCER. SOCIAL HISTORY GENERAL: TOBACCO USE ARE YOU A:FORMER SMOKER HOW LONG HAS IT BEEN SINCE YOU LAST SMOKED?> 10 YEARS PAIN CLINIC PFS, CLERGY, PUBLIC HEALTH REFERRALS PFS REFERRAL NEEDED?NO CLERGY REFERRAL NEEDED?NO PUBLIC HEALTH REFERRAL NEEDED?NO WAS THE PROVIDER NOTIFIED OF ANY PERTINENT INFO?NO HAS THE PATIENT BEEN EDUCATED REGARDING HIS/HER PLAN OF CARE?YES HAS THE PATIENT BEEN EDUCATED REGARDING PAIN, THE RISK FOR PAIN, THE IMPORTANCE OF EFFECTIVE PAIN MANAGEMENT, AND THE PAIN ASSESSMENT PROCESS?YES LATEX QUESTIONNAIRE LATEX ALLERGY : HAVE YOU EVER DEVELOPED ANY TYPE OF REACTION AFTER HANDLING LATEX PRODUCTS SUCH RUBBER GLOVES, CONDOMS, DIAPHRAGMS, BALLOONS, SOCKS, OR UNDERWEAR?NO LATEX ALLERGY : HAVE YOU EVER DEVELOPED ANY TYPE OF REACTION DURING OR AFTER DENTAL APPOINTMENT, VAGINAL/RECTAL EXAMINATION, SURGICAL PROCEDURE, OR ANY OTHER EXPOSURE?NO DATE ASKED : 09/03/2018 LATEX RISK : HAVE YOU EVER HAD ANY DIFFICULTY BREATHING OR HIVES AFTER EATING OR HANDLING ANY FRUITS, OR VEGETABLES; SUCH KIWI, BANANAS, STONE FRUITS, OR CHESTNUTSNO LATEX RISK : DO YOU HAVE A PREVIOUS PERSONAL HISTORY OF MORE THAN NINE SURGERIES, SPINA BIFIDA, OR REPEATED CATHERIZATIONS? YES - PLEASE INDICATE : > 9 SURGERIES LATEX RISK : ARE YOU FREQUENTLY EXPOSED TO LATEX PRODUCTS IN YOUR OCCUPATION?NO OTHERS AT HOME: SPOUSE AND SON. CAFFEINE CAFFEINE USE?YES HOW OFTEN AND HOW MUCH? DAILY/1 CUP ADVANCE DIRECTIVE ADVANCE DIRECTIVE DISCUSSED WITH PATIENT:YES PT DOES NOT HAVE HCP AND DECLINES INFO AND ASSISTANCE WITH FORM AT THIS TIME. 04/11/2019 [facility] BUDDHIST [id number] JAINISM LANGUAGE LANGUAGES SPOKEN:KINYARWANDA MARITAL STATUS: . ALCOHOL SCREENING DID YOU HAVE A DRINK CONTAINING ALCOHOL IN THE PAST YEAR?NO POINTS0 INTERPRETATIONNEGATIVE RECREATIONAL DRUG USE DRUG USE?NO PATIENT DENIES ABUSE OR MISSUSED OF ANY MEDICATION. PATIENT DENIES USE OF ANY ILLEGAL SUBSTANCE INCLUDING MARIJUANA OR COCAINE. LEARNING BARRIERS / SPECIAL NEEDS CHANGE FROM LAST VISIT?NO 01/03/19 BARRIERS TO LEARNING?NO HEARING IMPAIRED?NO VISION IMPAIRED?YES COGNITIVELY IMPAIRED?NO :CORRECTIVE LENSES READINESS TO LEARN?YES LEARNING PREFERENCES?NO LEARNING CAPABILITIES PRESENT?YES EMOTIONAL BARRIERS?NO SPECIAL DEVICES?NO CARE MANAGER NEEDED?NO REVEIWED WITH PT 05/10/18 1030 BVREVIEWED WITH PATIENT 09/03/18 1335 JSREVIEWED WITH PT 01/04/19 1431 NLJREVIEWED WITH PATIENT 04/11/2019 [facility]. HOSPITALIZATION/MAJOR DIAGNOSTIC PROCEDURE RELATED TO SURG REVIEW OF SYSTEMS REVIEWED BY: PROVIDER: MECCA DE ANDA . CONSTITUTIONAL: ANY CHANGE IN YOUR MEDICAL CONDITION? NO . CHILLS NO . FEVER NO . INFECTION: DO YOU HAVE NEW INFECTIONS? THROAT/RESPIRATORY, SWOLLEN GLANDS AND FEVER, HAS RECURRED THREE TIMES THIS SEASON, TREATED THROUGH DR. BEATTY'S OFFICE . DO YOU HAVE HISTORY OF MRSA? NO . MUSCULOSKELETAL: ANY NEW PATTERNS OF PAIN OR NUMBNESS? NO . GASTROENTEROLOGY: ANY NEW CHANGE IN BOWEL CONTROL? NO . GENITOURINARY: ANY NEW CHANGE IN BLADDER CONTROL? NO . IS THERE A CHANCE YOU COULD BE ? NO . HEMATOLOGY/LYMPH: DO YOU TAKE ANY BLOOD THINNERS? (FOR EXAMPLE- COUMADIN, PLAVIX, AGGRENOX, PLATEL, PRADAXA, OR XARELTO) NO . WHEN WAS YOUR LAST DOSE? DATE: TIME: . NEUROLOGY: HAVE YOU FALLEN IN THE PAST 12 MONTHS? NO . ANY NEW EXTREMITY NUMBNESS OR WEAKNESS? LEFT MIDDLE FINGER BURNING,, AND NUMBNESS IN RIGHT LEG WHENEVER SHE STANDS FOR ANY LENGTH OF TIME. . CARDIOLOGY: DO YOU HAVE A PACEMAKER OR DEFIBRILLATOR? NO . RESPIRATORY: HAVE YOU BEEN SICK IN THE PAST WEEK? YES SWOLLEN GLANDS/RESPIRATORY, SEEING DR. BEATTY . FEVER NO . FLU LIKE SYMPTOMS? NO . COUGH NO . INTEGUMENTARY: DO YOU HAVE ANY RASHES OR OPEN SORES? YES OPENS AREAS ON SCALP AND VAGINALLY, "NERVE RELATED" SEES A SULPHATE TESTER. . ALLERGIC/IMMUNO: ARE YOU ALLERGIC TO IV DYE? NO . ANY NEW ALLERGIES? NO . PSYCHIATRIC: DO YOU HAVE THOUGHTS OF HURTING YOURSELF OR SOMEONE ELSE? NO . ARE YOU ABUSED, NEGLECTED, OR IN AN UNSAFE ENVIRONMENT? NO . ENDOCRINOLOGY: ARE YOU DIABETIC? NO . OTHER: DO YOU NEED ANY PRESCRIPTIONS? YES . IF YES, PLEASE LIST: ____NUCYNTA . ANY NEW PROBLEMS WITH YOUR MEDICATIONS? NO . WHEN DID YOU LAST EAT? ____ . WHEN DID YOU LAST DRINK? ____ . WHAT DID YOU LAST DRINK? ____ . NAME OF PERSON DRIVING YOU HOME? ____ . DO YOU HAVE ANY OTHER QUESTIONS OR CONCERNS NO . VITAL SIGNS WT 192.4 LBS, HT 62 1/2, BMI 34.63 INDEX, BP 138/86 MM HG, HR 98 /MIN, RR 18 /MIN, TEMP 97.5 F, OXYGEN SAT % 97%, NA INITIALS AW 0930. EXAMINATION GENERAL EXAMINATION: GENERALNO ACUTE DISTRESS, WELL NOURISHED AND HYDRATED. PSYCHAPPROPRIATE MOOD AND AFFECT . LUNGS:CLEAR TO AUSCULTATION BILATERALLY, NO WHEEZES, RHONCHI, RALES. HEART:NO MURMURS, REGULAR RATE AND RHYTHM. ASSESSMENTS POSTLAMINECTOMY SYNDROME, NOT ELSEWHERE CLASSIFIED - M96.1 (PRIMARY) CHRONIC PRESCRIPTION OPIATE USE - Z79.891 ATYPICAL FACIAL PAIN - G50.1 TREATMENT POSTLAMINECTOMY SYNDROME, NOT ELSEWHERE CLASSIFIED REFILL NUCYNTA ER TABLET EXTENDED RELEASE 12 HOUR, 100 MG, 1 TABLET, ORALLY, EVERY 12 HRS MDD2, 30 DAY(S), 60, REFILLS 0 REFILL LYRICA CAPSULE, 50 MG, 1 CAPSULE, ORALLY, IN MORNING AND AT BEDTIME, 30 DAYS, 60, NOTES: SATTES SHE IS NOT TAKING CLINICAL NOTES: 48-YEAR-OLD FEMALE IN FOR CHRONIC PAIN FOLLOW-UP. GIVEN PRESENTING SYMPTOMS AND RESULTS OF PHYSICAL EXAMINATION RECOMMENDED RESTARTING LYRICA AND FOLLOW-UP IN ONE MONTH TO DETERMINE EFFICACY OF TREATMENT. PATIENT HAS EXPRESSED UNDERSTANDING OF AND WAS IN AGREEMENT WITH TREATMENT PLAN. GIVEN TIME TO ASK QUESTIONS AND EXPRESS CONCERNS., ISTOP REGISTRY REVIEWED AND DEMONSTRATES COMPLLIANCE. (REF # [id number] ) BRINGS IN MEDICATIONS WHICH IS APPROPRIATE FOR WHAT WAS DISPENSED. RECENT URINE TOXICOLOGY REVIEWED. NO UNAUTHORIZED MEDICATIONS. NO ILLICIT SUBSTANCES AND PRESCRIBED MEDICATIONS WERE PRESENT. PREVENTIVE MEDICINE PAIN CLINIC TEACHING: MEDICATIONS MEDICATION CHANGES REVIEWED WITH PATIENT, PATIENT DECLINES PRINTED HANDOUT ( PER PATIENT, SHE HAS BEEN ON IT A LONG TIME) PATIENT VERBALIZES UNDERSTANDING OF INSTRUCTIONS. 04/11/2019 [facility]. PROCEDURE CODES FA211 ESTABILISHED PATIENT [facility] CHARGE DISPOSITION & COMMUNICATION FOLLOW UP 4 WEEKS (REASON: ATYPICAL FACIAL PAIN) ELECTRONICALLY SIGNED BY NAYELY DILLON ON 04/12/2019 AT 09:18 AM EST DISCLAIMER : THIS IS A VISIT SUMMARY EXTRACTED FROM THE [employer] CHART. IT IS NOT A COPY OF THE [facility]. MTDD
== END ==
LOC: M PAIN 09:30
PROVIDERS: ATTEND Family Medicine
DX: M96.1 Postlaminectomy syndrome, not elsewhere classified (principal); Z79.891 Long term (current) use of opiate analgesic; G50.1 Atypical facial pain

== ENCOUNTER → 2019-05-23 | Outpatient (CLI) | payer MEDICARE ==
[~2019-05-23] MED LIST changes: -LIDO1SOL8; +LIDO2SOL17
--- NOTE | 2019-05-23 12:04 | REP ---
Clinical: Cough . Comparison: 10/17/2016 . Technique: PA and lateral. Findings: The mediastinum and cardiac silhouette are normal. The lung ontiveros are clear and without acute consolidation, effusion, or pneumothorax. The skeletal structures are intact and normal. Impression: 1. No acute cardiopulmonary process. Electronically Signed by Miles Morgan MD 05/23/2019 11:56 A
--- NOTE | 2019-05-23 12:08 | REP ---
Clinical: Cough. Technique: Complete sinus series (five total views) Findings: The sinuses are well aerated and clear. No obvious mucosal thickening or fluid level. No foreign body or abnormal calcifications. Lateral view demonstrates hyperostosis frontalis along the frontal bone. Impression: Sinuses are clear. Electronically Signed by Miles Morgan MD 05/23/2019 11:59 A
== END ==
LOC: M WUC 11:19
PROVIDERS: ATTEND Internal Medicine
DX: R05 Cough (principal); J32.9 Chronic sinusitis, unspecified

== ENCOUNTER → 2019-05-30 | Outpatient (CLI) | payer MEDICARE ==
--- NOTE | 2019-06-03 02:35 | ECWPNPC ---
PATIENT NAME: FATIMHA DEL VALLE : 1970 GENDER: FEMALE VISIT DATE: 05/30/2019 DISCHARGE DATE: 05/30/19 1147 VISIT LOCKED DATE TIME: PHYSICIAN: CLAUDY SANABRIA RESOURCE: CLAUDY SANABRIA REASON FOR APPOINTMENT 1. ATYPICAL FACIAL PAIN HISTORY OF PRESENT ILLNESS HISTORY OF PRESENT ILLNESS: PAIN THE PATIENT DESCRIBES THE PAIN... 48-YEAR-OLD FEMALE IN FOR CHRONIC PAIN FOLLOW-UP. AT LAST CLINIC VISIT SHE WAS STARTED ON LYRICA AGAIN AND ADMITS THAT SHE FINDS THE MEDICATION HELPFUL HOWEVER THERE WAS AN ISSUE AT THE PHARMACY WITH MEDICATION. SHE RATES HER PAIN CURRENTLY AT A 4-6 OUT OF 10 AND DESCRIBES IT ACHING, BURNING, SORE, TENDER, AND SOMETIMES FEELINGS OF NUMBNESS. FALL RISK SCREENING: SCREENING :NO FALLS REPORTED IN THE LAST YEAR CURRENT MEDICATIONS TAKING TEGRETOL XR 200 MG TABLET EXTENDED RELEASE 12 HOUR 2 TABS IN AM, 3 TABS IN PM ORALLY DIRECTED/DR. LAGOS TAKING TOPAMAX 50 50MG TABLET 3 TABLETS ORAL TWICE DAILY TAKING VERAPAMIL HCL ER 300 MG CAPSULE EXTENDED RELEASE 24 HOUR 1 CAPSULE ORALLY BEFORE BEDTIME TAKING ELMIRON 100 MG CAPSULE 1 CAPSULE ON AN EMPTY STOMACH ORALLY THREE TIMES A DAY TAKING IMITREX STATDOSE SYSTEM 6 MG/0.5ML KIT ALSO TAKES 100MG TAB PRN SUBCUTANEOUS PRN/H/A TAKING DEXILANT 60 MG CAPSULE DELAYED RELEASE 1 CAPSULE ORALLY ONCE A DAY TAKING MELATONIN 5 MG TABLET 2 TABLETS AT BEDTIME NEEDED WITH FOOD ORALLY ONCE A DAY TAKING IMITREX 100 MG TABLET 1 TABLET NEEDED ORALLY TWICE A DAY, NOTES: NONE RECENT TAKING BACLOFEN 10 MG TABLET 1 TABLET WITH FOOD OR MILK ORALLY THREE TIMES A DAY TAKING LOSARTAN POTASSIUM 100 MG TABLET 1 TABLET ORALLY ONCE A DAY TAKING RESTASIS 0.05 % EMULSION 1 DROP INTO AFFECTED EYE OPHTHALMIC TWICE A DAY TAKING CYMBALTA 60 MG CAPSULE DELAYED RELEASE PARTICLES 1 CAPSULE ORALLY TWICE DAILY TAKING SENNA 8.6 MG TABLET 2 TABLETS AT BEDTIME NEEDED ORALLY ONCE A DAY TAKING WESTCORT OINTMENT VALERATE 0.2% OINTMENT 30G APPLIED TOPICALLY BID TO AREAS ON BODY WITH ITCHY SPOTS TAKING CLOBETASOL PROPIONATE 0.05 % SOLUTION 1 APPLICATION TO AFFECTED AREA EXTERNALLY TWICE A DAY TO AREAS ON SCALP THAT ITCH TAKING HYDROCHLOROTHIAZIDE 25 MG TABLET 1 TABLET IN THE MORNING ORALLY ONCE A DAY TAKING LYRICA 50 MG CAPSULE 1 CAPSULE ORALLY IN MORNING AND AT BEDTIME, NOTES: SATTES SHE IS NOT TAKING TAKING NUCYNTA ER 100 MG TABLET EXTENDED RELEASE 12 HOUR 1 TABLET ORALLY EVERY 12 HRS MDD2 TAKING HYDROCODONE-ACETAMINOPHEN 10-325 MG TABLET 1 TABLET NEEDED ORALLY EVERY 6 HRS MDD4 TAKING TIZANIDINE HCL 4 MG TABLET 1 TABLET NEEDED ORALLY Q8H PRN NOT-TAKING DOXYCYCLINE MONOHYDRATE 50 MG CAPSULE 1 CAPSULE ORALLY BID WITH FOOD AND WATER NOT-TAKING S-XYBTVO-U-CYSTEINE 600 MG CAPSULE 1 CAPSULE ORALLY BID NOT-TAKING RANITIDINE HCL 150 MG TABLET 1 CAPSULE AT BEDTIME ORALLY ONCE A DAY NOT-TAKING POTASSIUM CHLORIDE 10 10 MEQ TABLET 1 TAB ORAL ONCE DAILY NOT-TAKING OXYGEN NOT-TAKING LOTEMAX 0.5 % SUSPENSION 1 DROP INTO AFFECTED EYE OPHTHALMIC THREE TIMES DAILY NOT-TAKING LYRICA 100 MG CAPSULE 1 CAPSULE ORALLY DAILY, NOTES: TAKES TOTAL OF 200MG DAILY NOT-TAKING NORCO 10-325 MG TABLET 1 ORALLY Q6H PRN MDD4 MEDICATION LIST REVIEWED AND RECONCILED WITH THE PATIENT PAST MEDICAL HISTORY SEASONAL ALLERGIES ENVIRONMENTAL ALLERGIES INTERSTITIAL CYSTITIS ULCERATIVE COLITIS HYPERTENSION MIGRAINE HEADACHE, CLUSTER CUELLAR 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 ESOPHAGUS LUMBAR DISC DISEASE SPINAL FLUID LEAK,FX 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 FIBROMYALGIA MCLEAN'S PALSY MONONUCLEOSIS DERMATITIS SCALP LICHEN PLANUS ALLERGIES TAPE ADHESIVE : OOZING RASH - ALLERGY PROTONIX: HEMORRHAGE LYRICA: SUICIDAL IDEATIONS - SIDE EFFECTS SURGICAL HISTORY DECOMPRESSION SURGERY 2004 BLADDER SURGERY LAMINECTOMY X 3 GAMMA KNIFE SURGERY TOE SURGERY-LEFT GREAT LAPAROSCOPY-EXPLORATORY CHOLECYSTECTOMY BALLOON COMPRESSION-BRAIN LAPAROSCOPIC TRIGEMINAL NERVE BLOCK TEMPORAL NERVE SURGERY 12/2013 FAMILY HISTORY FATHER: , DIAGNOSED WITH UNSPECIFIED CEREBRAL ARTERY OCCLUSION WITH CEREBRAL INFARCTION MOTHER: , UNSPECIFIED HEART DISEASE 6 BROTHER(S) , 3 SISTER(S) . 1 SON(S) . BROTHER PASSED FROM PANCREATIC CANCERONE SISTER HAD BREAST CANCER DENIES FAMILY HX OF SKIN CANCER.BROTHER DX WITH ADULT ONSET LEUKEMIA. SOCIAL HISTORY GENERAL: TOBACCO USE ARE YOU A:FORMER SMOKER HOW LONG HAS IT BEEN SINCE YOU LAST SMOKED?> 10 YEARS PAIN CLINIC PFS, CLERGY, PUBLIC HEALTH REFERRALS PFS REFERRAL NEEDED?NO CLERGY REFERRAL NEEDED?NO PUBLIC HEALTH REFERRAL NEEDED?NO WAS THE PROVIDER NOTIFIED OF ANY PERTINENT INFO?NO HAS THE PATIENT BEEN EDUCATED REGARDING HIS/HER PLAN OF CARE?YES HAS THE PATIENT BEEN EDUCATED REGARDING PAIN, THE RISK FOR PAIN, THE IMPORTANCE OF EFFECTIVE PAIN MANAGEMENT, AND THE PAIN ASSESSMENT PROCESS?YES LATEX QUESTIONNAIRE LATEX ALLERGY : HAVE YOU EVER DEVELOPED ANY TYPE OF REACTION AFTER HANDLING LATEX PRODUCTS SUCH RUBBER GLOVES, CONDOMS, DIAPHRAGMS, BALLOONS, SOCKS, OR UNDERWEAR?NO LATEX ALLERGY : HAVE YOU EVER DEVELOPED ANY TYPE OF REACTION DURING OR AFTER DENTAL APPOINTMENT, VAGINAL/RECTAL EXAMINATION, SURGICAL PROCEDURE, OR ANY OTHER EXPOSURE?NO DATE ASKED : 09/03/2018 LATEX RISK : HAVE YOU EVER HAD ANY DIFFICULTY BREATHING OR HIVES AFTER EATING OR HANDLING ANY FRUITS, OR VEGETABLES; SUCH KIWI, BANANAS, STONE FRUITS, OR CHESTNUTSNO LATEX RISK : DO YOU HAVE A PREVIOUS PERSONAL HISTORY OF MORE THAN NINE SURGERIES, SPINA BIFIDA, OR REPEATED CATHERIZATIONS? YES - PLEASE INDICATE : > 9 SURGERIES LATEX RISK : ARE YOU FREQUENTLY EXPOSED TO LATEX PRODUCTS IN YOUR OCCUPATION?NO OTHERS AT HOME: SPOUSE AND SON. CAFFEINE CAFFEINE USE?YES HOW OFTEN AND HOW MUCH? DAILY/1 CUP ADVANCE DIRECTIVE ADVANCE DIRECTIVE DISCUSSED WITH PATIENT:YES PT DOES NOT HAVE HCP AND DECLINES INFO AND ASSISTANCE WITH FORM AT THIS TIME. [employer] [id number] GNOSTICIST LANGUAGE LANGUAGES SPOKEN:DANISH MARITAL STATUS: . ALCOHOL SCREENING DID YOU HAVE A DRINK CONTAINING ALCOHOL IN THE PAST YEAR?NO POINTS0 INTERPRETATIONNEGATIVE RECREATIONAL DRUG USE DRUG USE?NO PATIENT DENIES ABUSE OR MISSUSED OF ANY MEDICATION. PATIENT DENIES USE OF ANY ILLEGAL SUBSTANCE INCLUDING MARIJUANA OR COCAINE. LEARNING BARRIERS / SPECIAL NEEDS CHANGE FROM LAST VISIT?NO 01/03/19 BARRIERS TO LEARNING?NO HEARING IMPAIRED?NO VISION IMPAIRED?YES COGNITIVELY IMPAIRED?NO :CORRECTIVE LENSES READINESS TO LEARN?YES LEARNING PREFERENCES?NO LEARNING CAPABILITIES PRESENT?YES EMOTIONAL BARRIERS?NO SPECIAL DEVICES?NO PATTERNMAKER METAL BENCH NEEDED?NO REVEIWED WITH PT 05/10/18 1030 BVREVIEWED WITH PATIENT 09/03/18 1335 JSREVIEWED WITH PT 01/04/19 1431 NLJREVIEWED WITH PATIENT 04/11/2019 [facility]. HOSPITALIZATION/MAJOR DIAGNOSTIC PROCEDURE RELATED TO SURG REVIEW OF SYSTEMS REVIEWED BY: PROVIDER: MECCA DE ANDA . CONSTITUTIONAL: ANY CHANGE IN YOUR MEDICAL CONDITION? NO . CHILLS NO . FEVER NO . INFECTION: DO YOU HAVE NEW INFECTIONS? NO . DO YOU HAVE HISTORY OF MRSA? NO . MUSCULOSKELETAL: ANY NEW PATTERNS OF PAIN OR NUMBNESS? YES, LEFT LEG . GASTROENTEROLOGY: ANY NEW CHANGE IN BOWEL CONTROL? NO . GENITOURINARY: ANY NEW CHANGE IN BLADDER CONTROL? NO . IS THERE A CHANCE YOU COULD BE ? NO . HEMATOLOGY/LYMPH: DO YOU TAKE ANY BLOOD THINNERS? (FOR EXAMPLE- COUMADIN, PLAVIX, AGGRENOX, PLATEL, PRADAXA, OR XARELTO) NO . WHEN WAS YOUR LAST DOSE? DATE: TIME: . NEUROLOGY: HAVE YOU FALLEN IN THE PAST 12 MONTHS? NO . ANY NEW EXTREMITY NUMBNESS OR WEAKNESS? YES, LEFT LOWER LEG, ANKLE, FOOT PAIN AND NUMBNESS . CARDIOLOGY: DO YOU HAVE A PACEMAKER OR DEFIBRILLATOR? NO . RESPIRATORY: HAVE YOU BEEN SICK IN THE PAST WEEK? NO . FEVER NO . FLU LIKE SYMPTOMS? NO . COUGH NO . INTEGUMENTARY: DO YOU HAVE ANY RASHES OR OPEN SORES? YES, LITTLE SCALP DERMATITIS . ALLERGIC/IMMUNO: ARE YOU ALLERGIC TO IV DYE? NO . ANY NEW ALLERGIES? NO . PSYCHIATRIC: DO YOU HAVE THOUGHTS OF HURTING YOURSELF OR SOMEONE ELSE? NO . ARE YOU ABUSED, NEGLECTED, OR IN AN UNSAFE ENVIRONMENT? NO . ENDOCRINOLOGY: ARE YOU DIABETIC? NO . OTHER: DO YOU NEED ANY PRESCRIPTIONS? YES, NEED TO DISCUSS LYRICA . IF YES, PLEASE LIST: ____ . ANY NEW PROBLEMS WITH YOUR MEDICATIONS? NO . WHEN DID YOU LAST EAT? ____ . WHEN DID YOU LAST DRINK? ____ . WHAT DID YOU LAST DRINK? ____ . NAME OF PERSON DRIVING YOU HOME? ____ . DO YOU HAVE ANY OTHER QUESTIONS OR CONCERNS NO . VITAL SIGNS WT 192 LBS, HT 62 1/2, BMI 34.55 INDEX, BP 138/90 MM HG, HR 89 /MIN, RR 16 /MIN, TEMP 98.6 F, OXYGEN SAT % 95, SAFE IN ENV? (Y/N) Y, REVIEWED BY: EM. EXAMINATION GENERAL EXAMINATION: GENERALNO ACUTE DISTRESS, WELL NOURISHED AND HYDRATED. PSYCHAPPROPRIATE MOOD AND AFFECT . LUNGS:CLEAR TO AUSCULTATION BILATERALLY, NO WHEEZES, RHONCHI, RALES. HEART:NO MURMURS, REGULAR RATE AND RHYTHM. ASSESSMENTS ATYPICAL FACIAL PAIN - G50.1 (PRIMARY) POSTLAMINECTOMY SYNDROME, NOT ELSEWHERE CLASSIFIED - M96.1 TREATMENT ATYPICAL FACIAL PAIN CLINICAL NOTES: 48-YEAR-OLD FEMALE IN FOR CHRONIC PAIN FOLLOW-UP. GIVEN PRESENTING SYMPTOMS AND RESULTS OF PHYSICAL EXAMINATION RECOMMENDED CONTINUATION OF LYRICA WITH FOLLOW-UP IN 2 MONTHS. PATIENT DOES ADMIT TO NEW SENSATIONS OF NEURALGIA WHICH SHE WAS ENCOURAGED TO DISCUSS WITH NEUROLOGY. PATIENT HAS EXPRESSED UNDERSTANDING OF AND WAS IN AGREEMENT WITH TREATMENT PLAN. GIVEN TIME TO ASK QUESTIONS AND EXPRESS CONCERNS., ISTOP REGISTRY REVIEWED AND DEMONSTRATES COMPLLIANCE. (REF # [id number] ) BRINGS IN MEDICATIONS WHICH IS APPROPRIATE FOR WHAT WAS DISPENSED. RECENT URINE TOXICOLOGY REVIEWED. NO UNAUTHORIZED MEDICATIONS. NO ILLICIT SUBSTANCES AND PRESCRIBED MEDICATIONS WERE PRESENT. POSTLAMINECTOMY SYNDROME, NOT ELSEWHERE CLASSIFIED REFILL LYRICA CAPSULE, 50 MG, 1 CAPSULE, ORALLY, IN MORNING AND AT BEDTIME, 30 DAYS, 60 PROCEDURE CODES FA211 ESTABILISHED PATIENT [facility] CHARGE DISPOSITION & COMMUNICATION FOLLOW UP 2 MONTHS (REASON: ATYPICAL FACIAL PAIN) ELECTRONICALLY SIGNED BY NAYELY DILLON ON 06/02/2019 AT 05:58 PM EST DISCLAIMER : THIS IS A VISIT SUMMARY EXTRACTED FROM THE [employer] CHART. IT IS NOT A COPY OF THE [employer] PROGRESS NOTE. BLANCA
== END ==
LOC: M PAIN 11:00
PROVIDERS: ATTEND Family Medicine
DX: G50.1 Atypical facial pain (principal); M96.1 Postlaminectomy syndrome, not elsewhere classified

== ENCOUNTER → 2019-06-22 | Outpatient (REF) | payer MEDICARE ==
[2019-06-22 14:56] LABS: HEPATITIS B SURFACE ANTIGEN NEGATIVE (NEGATIVE); HEPATITIS C VIRUS ABY INDEX 0.1 INDEX (<0.8); HIV 1&2 SCREEN CENTAUR NEGATIVE (NEGATIVE)
[2019-06-22 15:38] LABS: CHLAMYDIA DNA AMPLIFICATION NEGATIVE (NEGATIVE); GC DNA AMPLIFICATION NEGATIVE (NEGATIVE)
== END ==
LOC: M PLALAB 11:50
PROVIDERS: ATTEND Nurse Practitioner Family
DX: Z12.4 Encounter for screening for malignant neoplasm of cervix (principal); Z11.3 Encounter for screening for infections with a predominantly sexual mode of transmission; R87.5 Abnormal microbiological findings in specimens from female genital organs
CPT/HCPCS: 86780; 86803; 87340; 87389; 87624; 87661; G0101; G0123; G0463

== ENCOUNTER → 2019-06-22 | Outpatient (CLI) | payer MEDICARE ==
--- NOTE | 2019-06-22 12:37 | REPMRS ---
Patient History The patient states she had a clinical breast exam in June 2019. Patient is postmenopausal. Family history of breast cancer in sister, pancreatic cancer in brother, renal cancer in brother, lukemia in brother, colorectal cancer in paternal aunt, breast cancer in paternal grandmother. 3D TOMOSYNTHESIS WAS PERFORMED. Digital Woman Screen Mammo: June 22, 2019 - Exam #: [id number] Bilateral CC and MLO view(s) were taken. Technologist: Rebeca Perry, Technologist FINDINGS: The breast tissue is heterogeneously dense. This may lower the sensitivity of mammography. There has been no change in the appearance of the mammogram from the prior studies. There is a moderate amount of residual fibroglandular tissue which is fairly symmetric. There is no interval development of dominant mass, areas of architectural distortion, or clustered microcalcification typical of malignancy. Assessment: BI-RADS/ACR category 1 mammogram. Negative Mammogram. Recommendation Routine screening mammogram in 1 year (for women over age 40). This mammogram was interpreted with the aid of an FDA-approved computer-aided dectection system. THE LIFETIME RISK OF BREAST CANCER IS 25.6%, THEREFORE SUPPLEMENTAL SCREENING MRI OF THE BREASTS IS RECOMMENDED IN 6 MONTHS. Electronically Signed By: Yasir Pruett MD 06/22/19 5381
== END ==
LOC: M WHC 11:19
PROVIDERS: ATTEND Nurse Practitioner Family
DX: Z01.411 Encounter for gynecological examination (general) (routine) with abnormal findings (principal); Z12.31 Encounter for screening mammogram for malignant neoplasm of breast; Z78.0 Asymptomatic menopausal state; Z80.3 Family history of malignant neoplasm of breast
CPT/HCPCS: 77063; 77067; 86780; 86803; 87340; 87389; 87624; 87661; G0101; G0123; G0463

== ENCOUNTER → 2019-07-29 | Outpatient (CLI) | payer MEDICARE ==
--- NOTE | 2019-08-02 05:24 | ECWPNPC ---
PATIENT NAME: FATIMAH DEL VALLE : 1970 GENDER: FEMALE VISIT DATE: 07/29/2019 DISCHARGE DATE: 07/29/19 1056 VISIT LOCKED DATE TIME: PHYSICIAN: CLAUDY SANABRIA RESOURCE: CLAUDY SANABRIA REASON FOR APPOINTMENT 1. ATYPICAL FACIAL PAIN-[email or web address] HISTORY OF PRESENT ILLNESS HISTORY OF PRESENT ILLNESS: PAIN THE PATIENT DESCRIBES THE PAIN... PERMISSION REQUESTED AND RECEIVED FROM PATIENT TO PERFORM TELEPHONE VISIT. 49-YEAR-OLD FEMALE IN FOR CHRONIC PAIN FOLLOW-UP. SHE RATES HER PAIN CURRENTLY AT A 6 OUT OF 10 AND DESCRIBES IT ACHING, AND BURNING. SHE FEELS HER MEDICATIONS ARE WORKING WELL AND DENIES MED SIDE EFFECTS AT THIS TIME. FALL RISK SCREENING: SCREENING :NO FALLS REPORTED IN THE LAST YEAR CURRENT MEDICATIONS TAKING TEGRETOL XR 200 MG TABLET EXTENDED RELEASE 12 HOUR 2 TABS IN AM, 3 TABS IN PM ORALLY DIRECTED/DR. LAGOS TAKING TOPAMAX 50 50MG TABLET 3 TABLETS ORAL TWICE DAILY TAKING VERAPAMIL HCL ER 300 MG CAPSULE EXTENDED RELEASE 24 HOUR 1 CAPSULE ORALLY BEFORE BEDTIME TAKING ELMIRON 100 MG CAPSULE 1 CAPSULE ON AN EMPTY STOMACH ORALLY THREE TIMES A DAY TAKING IMITREX STATDOSE SYSTEM 6 MG/0.5ML KIT ALSO TAKES 100MG TAB PRN SUBCUTANEOUS PRN/H/A TAKING DEXILANT 60 MG CAPSULE DELAYED RELEASE 1 CAPSULE ORALLY ONCE A DAY TAKING MELATONIN 5 MG TABLET 2 TABLETS AT BEDTIME NEEDED WITH FOOD ORALLY ONCE A DAY TAKING IMITREX 100 MG TABLET 1 TABLET NEEDED ORALLY TWICE A DAY, NOTES: NONE RECENT TAKING BACLOFEN 10 MG TABLET 1 TABLET WITH FOOD OR MILK ORALLY THREE TIMES A DAY TAKING LOSARTAN POTASSIUM 100 MG TABLET 1 TABLET ORALLY ONCE A DAY TAKING RESTASIS 0.05 % EMULSION 1 DROP INTO AFFECTED EYE OPHTHALMIC TWICE A DAY TAKING CYMBALTA 60 MG CAPSULE DELAYED RELEASE PARTICLES 1 CAPSULE ORALLY TWICE DAILY TAKING SENNA 8.6 MG TABLET 2 TABLETS AT BEDTIME NEEDED ORALLY ONCE A DAY TAKING HYDROCHLOROTHIAZIDE 25 MG TABLET 1 TABLET IN THE MORNING ORALLY ONCE A DAY TAKING TIZANIDINE HCL 4 MG TABLET 1 TABLET NEEDED ORALLY Q8H PRN TAKING LYRICA 50 MG CAPSULE 1 CAPSULE ORALLY IN MORNING AND AT BEDTIME TAKING CLOTRIMAZOLE-BETAMETHASONE 1-0.05 % CREAM 1 APPLICATION EXTERNALLY VULVA TWICE A DAY TAKING NUCYNTA ER 100 MG TABLET EXTENDED RELEASE 12 HOUR 1 TABLET ORALLY EVERY 12 HRS MDD2 TAKING HYDROCODONE-ACETAMINOPHEN 10-325 MG TABLET 1 TABLET NEEDED ORALLY EVERY 6 HRS MDD4 TAKING ZYRTEC ALLERGY 10 MG TABLET 1 TABLET ORALLY ONCE A DAY NOT-TAKING WESTCORT OINTMENT VALERATE 0.2% OINTMENT 30G APPLIED TOPICALLY BID TO AREAS ON BODY WITH ITCHY SPOTS NOT-TAKING CLOBETASOL PROPIONATE 0.05 % SOLUTION 1 APPLICATION TO AFFECTED AREA EXTERNALLY TWICE A DAY TO AREAS ON SCALP THAT ITCH NOT-TAKING FLUCONAZOLE 150 MG TABLET 1 TABLET ORALLY ONE NOT-TAKING DOXYCYCLINE MONOHYDRATE 50 MG CAPSULE 1 CAPSULE ORALLY BID WITH FOOD AND WATER NOT-TAKING [id number]-CYSTEINE 600 MG CAPSULE 1 CAPSULE ORALLY BID NOT-TAKING RANITIDINE HCL 150 MG TABLET 1 CAPSULE AT BEDTIME ORALLY ONCE A DAY NOT-TAKING POTASSIUM CHLORIDE 10 10 MEQ TABLET 1 TAB ORAL ONCE DAILY NOT-TAKING OXYGEN NOT-TAKING LOTEMAX 0.5 % SUSPENSION 1 DROP INTO AFFECTED EYE OPHTHALMIC THREE TIMES DAILY NOT-TAKING LYRICA 100 MG CAPSULE 1 CAPSULE ORALLY DAILY, NOTES: TAKES TOTAL OF 200MG DAILY NOT-TAKING NORCO 10-325 MG TABLET 1 ORALLY Q6H PRN MDD4 MEDICATION LIST REVIEWED AND RECONCILED WITH THE PATIENT PAST MEDICAL HISTORY SEASONAL ALLERGIES ENVIRONMENTAL ALLERGIES INTERSTITIAL CYSTITIS ULCERATIVE COLITIS HYPERTENSION MIGRAINE HEADACHE, CLUSTER CUELLAR 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 ESOPHAGUS LUMBAR DISC DISEASE SPINAL FLUID LEAK,FX 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 FIBROMYALGIA MCLEAN'S PALSY MONONUCLEOSIS DERMATITIS SCALP LICHEN PLANUS MYRIAD MYRISK GENETIC TEST NEGATIVE 2018 .MRI RECOMMENDED TC SCORE 25.6% ALLERGIES TAPE ADHESIVE : OOZING RASH - ALLERGY PROTONIX: HEMORRHAGE LYRICA: SUICIDAL IDEATIONS - SIDE EFFECTS SURGICAL HISTORY DECOMPRESSION SURGERY 2005 BLADDER SURGERY LAMINECTOMY X 3 GAMMA KNIFE SURGERY TOE SURGERY-LEFT GREAT LAPAROSCOPY-EXPLORATORY CHOLECYSTECTOMY BALLOON COMPRESSION-BRAIN LAPAROSCOPIC TRIGEMINAL NERVE BLOCK TEMPORAL NERVE SURGERY 12/2013 ABDOMINAL HERNIA REPAIR KIDNEY TO REMOVE CYSTS - FINE NEEDLE CYST ASPIRATION SEVERAL TIMES, RETRIEVAL SEVERAL - RIGHT ( PKD ) FAMILY HISTORY FATHER: , ?COLON CANCER, DIAGNOSED WITH UNSPECIFIED CEREBRAL ARTERY OCCLUSION WITH CEREBRAL INFARCTION MOTHER: , UNSPECIFIED HEART DISEASE SIBLINGS: 1/2 BROTHER KIDNEY CANCER PATERNAL GRAND MOTHER: BREAST CANCER PATERNAL AUNT: COLON CANCER 6 BROTHER(S) , 3 SISTER(S) . 1 SON(S) . BROTHER PASSED FROM PANCREATIC CANCERONE SISTER HAD BREAST CANCER IN HER 30'S RECURRED AT AGE 35 DENIES FAMILY HX OF SKIN CANCER.BROTHER DX WITH ADULT ONSET LEUKEMIA. SOCIAL HISTORY GENERAL: TOBACCO USE ARE YOU A:FORMER SMOKER HOW LONG HAS IT BEEN SINCE YOU LAST SMOKED?> 10 YEARS LATEX QUESTIONNAIRE LATEX ALLERGY : HAVE YOU EVER DEVELOPED ANY TYPE OF REACTION AFTER HANDLING LATEX PRODUCTS SUCH RUBBER GLOVES, CONDOMS, DIAPHRAGMS, BALLOONS, SOCKS, OR UNDERWEAR?NO LATEX ALLERGY : HAVE YOU EVER DEVELOPED ANY TYPE OF REACTION DURING OR AFTER DENTAL APPOINTMENT, VAGINAL/RECTAL EXAMINATION, SURGICAL PROCEDURE, OR ANY OTHER EXPOSURE?NO DATE ASKED : 06/22/2019 LATEX RISK : HAVE YOU EVER HAD ANY DIFFICULTY BREATHING OR HIVES AFTER EATING OR HANDLING ANY FRUITS, OR VEGETABLES; SUCH KIWI, BANANAS, STONE FRUITS, OR CHESTNUTSNO LATEX RISK : DO YOU HAVE A PREVIOUS PERSONAL HISTORY OF MORE THAN NINE SURGERIES, SPINA BIFIDA, OR REPEATED CATHERIZATIONS? YES - PLEASE INDICATE : > 9 SURGERIES LATEX RISK : ARE YOU FREQUENTLY EXPOSED TO LATEX PRODUCTS IN YOUR OCCUPATION?NO ALCOHOL SCREENING DID YOU HAVE A DRINK CONTAINING ALCOHOL IN THE PAST YEAR?YES HOW OFTEN DID YOU HAVE SIX OR MORE DRINKS ON ONE OCCASION IN THE PAST YEAR?NEVER (0 POINTS) HOW MANY DRINKS DID YOU HAVE ON A TYPICAL DAY WHEN YOU WERE DRINKING IN THE PAST YEAR?1 OR 2 (0 POINTS) HOW OFTEN DID YOU HAVE A DRINK CONTAINING ALCOHOL IN THE PAST YEAR?MONTHLY OR LESS (1 POINT) POINTS1 INTERPRETATIONNEGATIVE RECREATIONAL DRUG USE DRUG USE?NO PATIENT DENIES ABUSE OR MISSUSED OF ANY MEDICATION. PATIENT DENIES USE OF ANY ILLEGAL SUBSTANCE INCLUDING MARIJUANA OR COCAINE. CAFFEINE CAFFEINE USE?YES HOW OFTEN AND HOW MUCH? 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 DIET: TRY TO AVOID FOODS THTAT WILL EFFECT INTERCYSTITIAL CYSTITIS. EXERCISE: NO REGULAR EXERCISE, WALKING IN THE GOOD WEATHER. MARITAL STATUS: . OTHERS AT HOME: SPOUSE AND SON. NEW PATIENT PAIN DIARY PATIENT DESCRIBES PAIN :ACHING, BURNING, HAVE IT ALL THE TIME FROM 0-10, WHAT LEVEL IS YOUR PAIN TODAY?6 PRECIPITATING FACTORS THE WIND, SPRING AND FALL, READING ALLEVIATING FACTORS LAYING DOWN IMPACT ON FUNCTION YES PAIN CLINIC PFS, CLERGY, PUBLIC HEALTH REFERRALS PFS REFERRAL NEEDED?NO CLERGY REFERRAL NEEDED?NO PUBLIC HEALTH REFERRAL NEEDED?NO WAS THE PROVIDER NOTIFIED OF ANY PERTINENT INFO?NO HAS THE PATIENT BEEN EDUCATED REGARDING HIS/HER PLAN OF CARE?YES HAS THE PATIENT BEEN EDUCATED REGARDING PAIN, THE RISK FOR PAIN, THE IMPORTANCE OF EFFECTIVE PAIN MANAGEMENT, AND THE PAIN ASSESSMENT PROCESS?YES ADVANCE DIRECTIVE ADVANCE DIRECTIVE DISCUSSED WITH PATIENT:YES PT DOES NOT HAVE HCP AND DECLINES INFO AND ASSISTANCE WITH FORM AT THIS TIME. REVEIWED WITH PT 05/10/18 1030 BVREVIEWED WITH PATIENT 09/03/18 1335 JSREVIEWED WITH PT 01/04/19 1431 NLJREVIEWED WITH PATIENT 04/11/2019 LAS. HOSPITALIZATION/MAJOR DIAGNOSTIC PROCEDURE RELATED TO SURG REVIEW OF SYSTEMS REVIEWED BY: PROVIDER: MECCA ADLER-Yesenia . CONSTITUTIONAL: ANY CHANGE IN YOUR MEDICAL CONDITION? NO . CHILLS NO . FEVER NO . INFECTION: DO YOU HAVE NEW INFECTIONS? NO . DO YOU HAVE HISTORY OF MRSA? NO . MUSCULOSKELETAL: ANY NEW PATTERNS OF PAIN OR NUMBNESS? NO . GASTROENTEROLOGY: ANY NEW CHANGE IN BOWEL CONTROL? NO . GENITOURINARY: ANY NEW CHANGE IN BLADDER CONTROL? NO . IS THERE A CHANCE YOU COULD BE ? NO . HEMATOLOGY/LYMPH: DO YOU TAKE ANY BLOOD THINNERS? (FOR EXAMPLE- COUMADIN, PLAVIX, AGGRENOX, PLATEL, PRADAXA, OR XARELTO) NO . WHEN WAS YOUR LAST DOSE? DATE: TIME: . NEUROLOGY: HAVE YOU FALLEN IN THE PAST 12 MONTHS? NO . ANY NEW EXTREMITY NUMBNESS OR WEAKNESS? NO . CARDIOLOGY: DO YOU HAVE A PACEMAKER OR DEFIBRILLATOR? NO . RESPIRATORY: HAVE YOU BEEN SICK IN THE PAST WEEK? NO . FEVER NO . FLU LIKE SYMPTOMS? NO . COUGH NO . INTEGUMENTARY: DO YOU HAVE ANY RASHES OR OPEN SORES? YES DERMATITIS TO SCALP . ALLERGIC/IMMUNO: ARE YOU ALLERGIC TO IV DYE? NO . ANY NEW ALLERGIES? NO . PSYCHIATRIC: DO YOU HAVE THOUGHTS OF HURTING YOURSELF OR SOMEONE ELSE? NO . ARE YOU ABUSED, NEGLECTED, OR IN AN UNSAFE ENVIRONMENT? NO . ENDOCRINOLOGY: ARE YOU DIABETIC? NO . OTHER: DO YOU NEED ANY PRESCRIPTIONS? NO . IF YES, PLEASE LIST: ____ . ANY NEW PROBLEMS WITH YOUR MEDICATIONS? NO . WHEN DID YOU LAST EAT? ____ . WHEN DID YOU LAST DRINK? ____ . WHAT DID YOU LAST DRINK? ____ . NAME OF PERSON DRIVING YOU HOME? ____ . DO YOU HAVE ANY OTHER QUESTIONS OR CONCERNS NO . EXAMINATION GENERAL EXAMINATION: PSYCHAPPROPRIATE MOOD AND AFFECT , ORIENTED X 3. ASSESSMENTS ATYPICAL FACIAL PAIN - G50.1 (PRIMARY) TREATMENT ATYPICAL FACIAL PAIN CLINICAL NOTES: 49-YEAR-OLD FEMALE IN FOR CHRONIC PAIN FOLLOW-UP. GIVEN PRESENTING SYMPTOMS RECOMMENDED CONTINUATION OF CURRENT MEDICATION REGIMEN WITH FOLLOW-UP IN 3 MONTHS. PATIENT HAS EXPRESSED UNDERSTANDING OF AND WAS IN AGREEMENT WITH TREATMENT PLAN. GIVEN TIME TO ASK QUESTIONS AND EXPRESS CONCERNS. , ISTOP REGISTRY REVIEWED AND DEMONSTRATES COMPLLIANCE. (REF # [id number] ) BRINGS IN MEDICATIONS WHICH IS APPROPRIATE FOR WHAT WAS DISPENSED. RECENT URINE TOXICOLOGY REVIEWED. NO UNAUTHORIZED MEDICATIONS. NO ILLICIT SUBSTANCES AND PRESCRIBED MEDICATIONS WERE PRESENT. VISIT TO BE BILLED BASED ON TIME SPENT WITH PATIENT. TIME SPENT WITH PATIENT 11 MINUTES. DISPOSITION & COMMUNICATION FOLLOW UP 3 MONTHS (REASON: ATYPICAL FACIAL PAIN) ELECTRONICALLY SIGNED BY NAYELY DILLON ON 08/01/2019 AT 09:58 AM EDT DISCLAIMER : THIS IS A VISIT SUMMARY EXTRACTED FROM THE [employer] CHART. IT IS NOT A COPY OF THE [employer] PROGRESS NOTE. BLANCA
== END ==
LOC: M PAIN 10:15
PROVIDERS: ATTEND Family Medicine
DX: G50.1 Atypical facial pain (principal); I10 Essential (primary) hypertension; Z79.891 Long term (current) use of opiate analgesic; Z79.899 Other long term (current) drug therapy; Z88.8 Allergy status to other drugs, medicaments and biological substances; Z91.048 Other nonmedicinal substance allergy status; Z87.891 Personal history of nicotine dependence

== ENCOUNTER → 2019-12-21 | Outpatient (CLI) | payer MEDICARE ==
[~2019-12-21] MED LIST changes: -ALL10TAB29 PO; +CETI-24 PO
== END ==
LOC: M PAIN 10:57
PROVIDERS: ATTEND Family Medicine
DX: G50.1 Atypical facial pain (principal); M96.1 Postlaminectomy syndrome, not elsewhere classified; Z88.8 Allergy status to other drugs, medicaments and biological substances; Z79.899 Other long term (current) drug therapy

== ENCOUNTER → 2020-01-18 | Outpatient (CLI) | payer MEDICARE ==
[2020-01-18 17:04] LABS: BLOOD UREA NITROGEN 18 MG/DL (7-18); GLOMERULAR FILTRATION RATE > 60.0 (>51)
== END ==
LOC: M LAB 16:18
PROVIDERS: ATTEND Nurse Practitioner Family
DX: Z91.89 Other specified personal risk factors, not elsewhere classified (principal)

== ENCOUNTER → 2020-02-09 | Outpatient (CLI) | payer MEDICAID, MEDICARE ==
[~2020-02-09] MED LIST changes: +PROHANCE 279.3MG/ML 15ML VIAL As Ordered ONE; +PROHANCE 279.3MG/ML 5ML VIAL As Ordered ONE
--- NOTE | 2020-02-09 12:39 | REP ---
INDICATION: HIGH RISK BRST CA FILE RM. Lifetime risk of breast cancer 25.6%. COMPARISON: Mammogram 06/22/2019. TECHNIQUE: Three Emili MRI imaging was performed with a dedicated breast coil. Axial, coronal, and sagittal T1 and T2 weighted scans were obtained with and without fat saturation in the usual fashion. The study includes dynamically acquired post gadolinium-enhanced imaging with image subtraction. Maximum intensity projection and multi planar reformation imaging is included as well. This study is interpreted with the aid of [employer], an FDA approved computer aided detection (CAD) software program, on a dedicated breast MRI workstation. The gadolinium enhancement dose is 17 mL of intravenous ProHance. FINDINGS: There is moderate symmetrical fibroglandular tissue bilaterally. There is minor background parenchymal enhancement bilaterally. No significant cystic changes seen. There is no evidence of axillary adenopathy. There is no suspicious enhancing mass or morphologic abnormality. IMPRESSION: BI-RADS category 1, negative MRI of the breasts. No suspicious enhancing mass or morphologic abnormality. Yearly supplemental screening MRI of the breasts is recommended for patients with an elevated lifetime risk of breast cancer 20% or greater, in addition to annual screening mammography, staggered every 6 months. <Electronically signed by Yasir Pruett > 02/09/20 0435
== END ==
LOC: M RAD 08:28
PROVIDERS: ATTEND Nurse Practitioner Family
DX: Z91.89 Other specified personal risk factors, not elsewhere classified (principal); Z80.3 Family history of malignant neoplasm of breast; N60.39 Fibrosclerosis of unspecified breast
CPT/HCPCS: A9576; C8908

== ENCOUNTER → 2020-03-21 | Outpatient (CLI) | payer MEDICARE ==
[~2020-03-21] MED LIST changes: -PROHANCE 279.3MG/ML 15ML VIAL As Ordered ONE; -PROHANCE 279.3MG/ML 5ML VIAL As Ordered ONE
--- NOTE | 2020-03-23 06:12 | ECWPNPC ---
PATIENT NAME: FATIMAH DEL VALLE : 1970 GENDER: FEMALE VISIT DATE: 03/21/2020 DISCHARGE DATE: 03/21/20 1552 VISIT LOCKED DATE TIME: PHYSICIAN: CLAUDY SANABRIA RESOURCE: CLAUDY SANABRIA REASON FOR APPOINTMENT 1. [phone] HISTORY OF PRESENT ILLNESS GENERAL: - PERMISSION REQUESTED AND RECEIVED FROM PATIENT TO PERFORM TELEHEALTH VISIT. 49-YEAR-OLD FEMALE IN FOR CHRONIC PAIN FOLLOW-UP SHE RATES HER PAIN CURRENTLY AT A 2 OUT OF 10 AND DESCRIBES IT ACHING. PATIENT FEELS HER MEDICATIONS ARE HELPFUL AND DENIES MED SIDE EFFECTS AT THIS TIME. FALL RISK SCREENING: SCREENING :NO FALLS REPORTED IN THE LAST YEAR PAIN SCREENING: PATIENT HAS A COMPLAINT OF ACUTE OR CHRONIC PAIN :YES LOCATION OF PAIN:HEAD INTENSITY OF PAIN (SCALE OF 1 TO 10):2 WHAT DOES YOUR PAIN FEEL LIKE:ACHING DURATION:CONTINOUS, CONSTANT PAIN IS INCREASED BY:ACTIVITIES PAIN IS DECREASED BY:OTHERS LAYING DOWN, HOT CLOTHE TO EYES TREATMENT/MEDICATIONS USED TO MANAGE PAIN:OTC PAIN RELIEVERS LEVEL OF RELIEF FROM PAIN TREATMENTS IN THE PAST:50% PAIN HAS INTERFERED WITH THE FOLLOWING:BATHING/DRESSING, WALKING ABILITY, HOUSEWORK, SLEEP, TRANSPORTATION, TOILETING NURSING NOTE: PT STATES SHE HAS AN APPOINTMENT WITH NEUROLOGY IN [place] FOR BACK AND HEAD PROBLEMS, DR LAGOS SENT HER THERE. PAIN CENTER INTAKE QUESTIONS: DO YOU HAVE A HISTORY OF MRSA? :NO DO YOU TAKE A BLOOD THINNERS? :NO DO YOU HAVE ANY BLEEDING DISORDERS? :NO ANY NEW NUMBNESS OR WEAKNESS IN YOUR LEGS OR ARMS? :NO ANY PACEMAKER,DEFIBRILLATOR, OR DORSAL COLUMN STIMULATOR? :NO DO YOU HAVE ANY RASHES OR OPEN SORES? :NO ARE YOU ALLERGIC TO IV DYE? :NO ARE YOU DIABETIC? :NO ANY NEW PROBLEMS WITH YOUR MEDICATIONS? :NO HAVE YOU RECEIVED A VACCINE IN THE PAST 30 DAYS? :NO DO YOU PLAN TO RECEIVE A VACCINE IN THE NEXT 21 DAYS? :NO DO YOU NEED ANY PRESCRIPTION? :NO DO YOU TAKE ANY IMMUNOSUPPRESSIVE MEDICATIONS? :NO IS THERE A CHANCE YOU COULD BE ? :NO ARE YOU BREAST FEEDING? :NO CURRENT MEDICATIONS TAKING TEGRETOL XR 200 MG TABLET EXTENDED RELEASE 12 HOUR 2 TABS IN AM, 3 TABS IN PM ORALLY DIRECTED/DR. LAGOS TAKING TOPAMAX 50 50MG TABLET 3 TABLETS ORAL TWICE DAILY TAKING VERAPAMIL HCL ER 300 MG CAPSULE EXTENDED RELEASE 24 HOUR 1 CAPSULE ORALLY BEFORE BEDTIME TAKING ELMIRON 100 MG CAPSULE 1 CAPSULE ON AN EMPTY STOMACH ORALLY THREE TIMES A DAY TAKING IMITREX STATDOSE SYSTEM 6 MG/0.5ML KIT ALSO TAKES 100MG TAB PRN SUBCUTANEOUS PRN/H/A TAKING DEXILANT 60 MG CAPSULE DELAYED RELEASE 1 CAPSULE ORALLY ONCE A DAY TAKING MELATONIN 5 MG TABLET 2 TABLETS AT BEDTIME NEEDED WITH FOOD ORALLY ONCE A DAY TAKING IMITREX 100 MG TABLET 1 TABLET NEEDED ORALLY TWICE A DAY, NOTES: NONE RECENT TAKING BACLOFEN 10 MG TABLET 1 TABLET WITH FOOD OR MILK ORALLY THREE TIMES A DAY TAKING LOSARTAN POTASSIUM 100 MG TABLET 1 TABLET ORALLY ONCE A DAY TAKING RESTASIS 0.05 % EMULSION 1 DROP INTO AFFECTED EYE OPHTHALMIC TWICE A DAY TAKING CYMBALTA 60 MG CAPSULE DELAYED RELEASE PARTICLES 1 CAPSULE ORALLY TWICE DAILY TAKING SENNA 8.6 MG TABLET 2 TABLETS AT BEDTIME NEEDED ORALLY ONCE A DAY TAKING HYDROCHLOROTHIAZIDE 25 MG TABLET 1 TABLET IN THE MORNING ORALLY ONCE A DAY TAKING TIZANIDINE HCL 4 MG TABLET 1 TABLET NEEDED ORALLY Q8H PRN TAKING CLOTRIMAZOLE-BETAMETHASONE 1-0.05 % CREAM 1 APPLICATION EXTERNALLY VULVA TWICE A DAY TAKING ZYRTEC ALLERGY 10 MG TABLET 1 TABLET ORALLY ONCE A DAY TAKING NUCYNTA ER 100 MG TABLET EXTENDED RELEASE 12 HOUR 1 TABLET ORALLY EVERY 12 HRS MDD2 TAKING LYRICA 50 MG CAPSULE 1 CAPSULE ORALLY IN MORNING AND AT BEDTIME TAKING HYDROCODONE-ACETAMINOPHEN 10-325 MG TABLET 1 TABLET NEEDED ORALLY EVERY 6 HRS MDD4 NOT-TAKING WESTCORT OINTMENT VALERATE 0.2% OINTMENT 30G APPLIED TOPICALLY BID TO AREAS ON BODY WITH ITCHY SPOTS NOT-TAKING CLOBETASOL PROPIONATE 0.05 % SOLUTION 1 APPLICATION TO AFFECTED AREA EXTERNALLY TWICE A DAY TO AREAS ON SCALP THAT ITCH NOT-TAKING FLUCONAZOLE 150 MG TABLET 1 TABLET ORALLY ONE NOT-TAKING DOXYCYCLINE MONOHYDRATE 50 MG CAPSULE 1 CAPSULE ORALLY BID WITH FOOD AND WATER NOT-TAKING W-[id number]-K-CYSTEINE 600 MG CAPSULE 1 CAPSULE ORALLY BID NOT-TAKING RANITIDINE HCL 150 MG TABLET 1 CAPSULE AT BEDTIME ORALLY ONCE A DAY NOT-TAKING POTASSIUM CHLORIDE 10 10 MEQ TABLET 1 TAB ORAL ONCE DAILY NOT-TAKING OXYGEN NOT-TAKING LOTEMAX 0.5 % SUSPENSION 1 DROP INTO AFFECTED EYE OPHTHALMIC THREE TIMES DAILY NOT-TAKING LYRICA 100 MG CAPSULE 1 CAPSULE ORALLY DAILY, NOTES: TAKES TOTAL OF 200MG DAILY NOT-TAKING NORCO 10-325 MG TABLET 1 ORALLY Q6H PRN MDD4 MEDICATION LIST REVIEWED AND RECONCILED WITH THE PATIENT PAST MEDICAL HISTORY SEASONAL ALLERGIES ENVIRONMENTAL ALLERGIES INTERSTITIAL CYSTITIS ULCERATIVE COLITIS HYPERTENSION MIGRAINE HEADACHE, CLUSTER CUELLAR 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 ESOPHAGUS LUMBAR DISC DISEASE SPINAL FLUID LEAK,FX 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 FIBROMYALGIA MCLEAN'S PALSY MONONUCLEOSIS DERMATITIS SCALP LICH[facility] NE[facility] .MRI RECOMMENDED TC SCORE 25.6% ALLERGIES TAPE ADHESIVE : OOZING RASH - ALLERGY PROTONIX: HEMORRHAGE LYRICA: SUICIDAL IDEATIONS - SIDE EFFECTS SURGICAL HISTORY DECOMPRESSION SURGERY 2005 BLADDER SURGERY LAMINECTOMY X 3 GAMMA KNIFE SURGERY TOE SURGERY-LEFT GREAT LAPAROSCOPY-EXPLORATORY CHOLECYSTECTOMY BALLOON COMPRESSION-BRAIN LAPAROSCOPIC TRIGEMINAL NERVE BLOCK TEMPORAL NERVE SURGERY 12/2013 ABDOMINAL HERNIA REPAIR KIDNEY TO REMOVE CYSTS - FINE NEEDLE CYST ASPIRATION SEVERAL TIMES, RETRIEVAL SEVERAL - RIGHT ( PKD ) FAMILY HISTORY FATHER: , ?COLON CANCER, DIAGNOSED WITH UNSPECIFIED CEREBRAL ARTERY OCCLUSION WITH CEREBRAL INFARCTION MOTHER: , UNSPECIFIED HEART DISEASE SIBLINGS: 1/2 BROTHER KIDNEY CANCER PATERNAL GRAND MOTHER: BREAST CANCER PATERNAL AUNT: COLON CANCER 6 BROTHER(S) , 3 SISTER(S) . 1 SON(S) . BROTHER PASSED FROM PANCREATIC CANCERONE SISTER HAD BREAST CANCER IN HER 30'S RECURRED AT AGE 35 DENIES FAMILY HX OF SKIN CANCER.BROTHER DX WITH ADULT ONSET LEUKEMIA. SOCIAL HISTORY GENERAL: TOBACCO USE ARE YOU A:FORMER SMOKER HOW LONG HAS IT BEEN SINCE YOU LAST SMOKED?> 10 YEARS LATEX QUESTIONNAIRE LATEX ALLERGY : HAVE YOU EVER DEVELOPED ANY TYPE OF REACTION AFTER HANDLING LATEX PRODUCTS SUCH RUBBER GLOVES, CONDOMS, DIAPHRAGMS, BALLOONS, SOCKS, OR UNDERWEAR?NO LATEX ALLERGY : HAVE YOU EVER DEVELOPED ANY TYPE OF REACTION DURING OR AFTER DENTAL APPOINTMENT, VAGINAL/RECTAL EXAMINATION, SURGICAL PROCEDURE, OR ANY OTHER EXPOSURE?NO DATE ASKED : 06/22/2019 LATEX RISK : HAVE YOU EVER HAD ANY DIFFICULTY BREATHING OR HIVES AFTER EATING OR HANDLING ANY FRUITS, OR VEGETABLES; SUCH KIWI, BANANAS, STONE FRUITS, OR CHESTNUTSNO LATEX RISK : DO YOU HAVE A PREVIOUS PERSONAL HISTORY OF MORE THAN NINE SURGERIES, SPINA BIFIDA, OR REPEATED CATHERIZATIONS? YES - PLEASE INDICATE : > 9 SURGERIES LATEX RISK : ARE YOU FREQUENTLY EXPOSED TO LATEX PRODUCTS IN YOUR OCCUPATION?NO ALCOHOL SCREENING DID YOU HAVE A DRINK CONTAINING ALCOHOL IN THE PAST YEAR?YES HOW OFTEN DID YOU HAVE SIX OR MORE DRINKS ON ONE OCCASION IN THE PAST YEAR?NEVER (0 POINTS) HOW MANY DRINKS DID YOU HAVE ON A TYPICAL DAY WHEN YOU WERE DRINKING IN THE PAST YEAR?1 OR 2 (0 POINTS) HOW OFTEN DID YOU HAVE A DRINK CONTAINING ALCOHOL IN THE PAST YEAR?MONTHLY OR LESS (1 POINT) POINTS1 INTERPRETATIONNEGATIVE RECREATIONAL DRUG USE DRUG USE?NO PATIENT DENIES ABUSE OR MISSUSED OF ANY MEDICATION. PATIENT DENIES USE OF ANY ILLEGAL SUBSTANCE INCLUDING MARIJUANA OR COCAINE. CAFFEINE CAFFEINE USE?YES HOW OFTEN AND HOW MUCH? 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 DIET: TRY TO AVOID FOODS THTAT WILL EFFECT INTERCYSTITIAL CYSTITIS. EXERCISE: NO REGULAR EXERCISE, WALKING IN THE GOOD WEATHER. MARITAL STATUS: . OTHERS AT HOME: SPOUSE AND SON. PATIENT DESCRIBES PAIN :ACHING, BURNING, HAVE IT ALL THE TIME FROM 0-10, WHAT LEVEL IS YOUR PAIN TODAY?6 PRECIPITATING FACTORS THE WIND, SPRING AND FALL, READING ALLEVIATING FACTORS LAYING DOWN IMPACT ON FUNCTION YES PAIN CLINIC PFS, CLERGY, PUBLIC HEALTH REFERRALS PFS REFERRAL NEEDED?NO CLERGY REFERRAL NEEDED?NO PUBLIC HEALTH REFERRAL NEEDED?NO WAS THE PROVIDER NOTIFIED OF ANY PERTINENT INFO?NO HAS THE PATIENT BEEN EDUCATED REGARDING HIS/HER PLAN OF CARE?YES HAS THE PATIENT BEEN EDUCATED REGARDING PAIN, THE RISK FOR PAIN, THE IMPORTANCE OF EFFECTIVE PAIN MANAGEMENT, AND THE PAIN ASSESSMENT PROCESS?YES ADVANCE DIRECTIVE ADVANCE DIRECTIVE DISCUSSED WITH PATIENT:YES PT DOES NOT HAVE HCP AND DECLINES INFO AND ASSISTANCE WITH FORM AT THIS TIME. REVEIWED WITH PT 05/10/18 1030 BVREVIEWED WITH PATIENT 09/03/18 1335 JSREVIEWED WITH PT 01/04/19 1431 NLJREVIEWED WITH PATIENT 04/11/2019 LAS. HOSPITALIZATION/MAJOR DIAGNOSTIC PROCEDURE RELATED TO SURG REVIEW OF SYSTEMS CONSTITUTIONAL: ANY RECENT FEVER NO . CHILLS NO . WEIGHT CHANGE OF UNKNOWN REASONS NO . GASTROENTEROLOGY: NEW UNEXPLAINABLE CHANGES IN BOWEL CONTROL NO . CONSTIPATION NO . GENITOURINARY: ANY NEW CHANGE IN BLADDER CONTROL? NO . NEUROLOGY: NEW ONSET DIZZINESS OR NEUROLOGICAL CHANGES NOT MENTIONED NO . NEW NUMBNESS OR PAIN PATTERNS NOT MENTIONED AND PERTINENT TO TODAY'S VISIT NO . CARDIOLOGY: NEW CHEST PRESSURE NO . NEW CHEST PAIN NO . RESPIRATORY: UNEXPLAINABLE COUGH NO . NEW SHORTNESS OF BREATH NO . EXAMINATION GENERAL EXAMINATION: GENERALNO ACUTE DISTRESS, WELL NOURISHED AND HYDRATED. PSYCHAPPROPRIATE MOOD AND AFFECT . ASSESSMENTS POSTLAMINECTOMY SYNDROME, NOT ELSEWHERE CLASSIFIED - M96.1 (PRIMARY) TREATMENT POSTLAMINECTOMY SYNDROME, NOT ELSEWHERE CLASSIFIED NOTES: 49-YEAR-OLD FEMALE IN FOR CHRONIC PAIN FOLLOW-UP. GIVEN PRESENTING SYMPTOMS RECOMMENDED CONTINUATION OF CURRENT MEDICATION REGIMEN WITH FOLLOW-UP IN 3 MONTHS. PATIENT WILL PRESENT FOR U TOX AT ANOTHER TIME. PATIENT HAS EXPRESSED UNDERSTANDING OF AND WAS IN AGREEMENT WITH TREATMENT PLAN. GIVEN TIME TO ASK QUESTIONS AND EXPRESS CONCERNS. , ISTOP REGISTRY REVIEWED AND DEMONSTRATES COMPLLIANCE. (REF # [id number] ) BRINGS IN MEDICATIONS WHICH IS APPROPRIATE FOR WHAT WAS DISPENSED. RECENT URINE TOXICOLOGY REVIEWED. NO UNAUTHORIZED MEDICATIONS. NO ILLICIT SUBSTANCES AND PRESCRIBED MEDICATIONS WERE PRESENT. VISIT CONDUCTED VIA TELEPHONE. TOTAL TIME SPENT WITH PATIENT 11 MINUTES. OTHERS NOTES: PT IS PREPARED FOR VIRTUAL VISIT. EM. DISPOSITION & COMMUNICATION FOLLOW UP 3 MONTHS (REASON: BACK PAIN) ELECTRONICALLY SIGNED BY NAYELY DILLON ON 03/22/2020 AT 03:27 PM EST DISCLAIMER : THIS IS A VISIT SUMMARY EXTRACTED FROM THE [facility] CHART. IT IS NOT A COPY OF THE [facility] PROGRESS NOTE. [facility]
== END ==
LOC: M PAIN 13:30
PROVIDERS: ATTEND Family Medicine
DX: M96.1 Postlaminectomy syndrome, not elsewhere classified (principal); J30.2 Other seasonal allergic rhinitis; I10 Essential (primary) hypertension; M79.7 Fibromyalgia; Z87.891 Personal history of nicotine dependence; Z79.891 Long term (current) use of opiate analgesic; Z79.899 Other long term (current) drug therapy; Z88.8 Allergy status to other drugs, medicaments and biological substances; Z91.048 Other nonmedicinal substance allergy status

== ENCOUNTER → 2020-05-30 | Outpatient (CLI) | payer MEDICARE ==
[~2020-05-30] MED LIST changes: +HYDR-3490 PO; -HYDR25TAB PO; +PROHANCE 279.3MG/ML 15ML VIAL As Ordered ONE; +PROHANCE 279.3MG/ML 5ML VIAL As Ordered ONE
--- NOTE | 2020-05-30 18:13 | REPVR ---
PROCEDURE INFORMATION: Exam: MR Head Without and With Contrast Exam date and time: 05/30/2020 4:10 PM Age: 49 years old Clinical indication: Other: Trigeminal neuralgia; Additional info: Trigeminal neuralgia, spondylosis TECHNIQUE: Imaging protocol: MR of the head without and with intravenous contrast. Contrast material: PROHANCE; Contrast volume: 17 ml; Contrast route: INTRAVENOUS (IV); COMPARISON: MRI-Brain without Contrast 10/25/2013 9:15 AM FINDINGS: Brain: There is no restricted diffusion to suggest acute infarction. There is no acute intracranial hemorrhage. There is no mass in the cerebellopontine sulci compressing the 5th nerves however there are vessels directly adjacent to the right and left 5th nerves on series 501, image 1 frame 31; series 601, image 1 frames 29-31. There may be enhancement in the left 5th nerve series 1101, image 1 frame 8; series 1001 image 1 frame 31. The gasserian ganglia appear symmetric. There is scattered T2 and FLAIR hyperintensities primarily subcortical. No abnormal contrast enhancement in the brain parenchyma or leptomeninges. Cerebral ventricles: No ventriculomegaly. Bones/joints: Unremarkable. Paranasal sinuses: Normal as visualized. No acute sinusitis. Mastoid air cells: Normal as visualized. No mastoid effusion. Orbital cavity: Unremarkable. Soft tissues: On the T2 weighted axials series 601 there appear to be multiple lymph nodes throughout the head neck region most of which are subcentimeter. IMPRESSION: There may be vascular impingement upon the 5th nerves as described. There also may be enhancement of the left 5th nerve within the prepontine cistern. Electronically signed by: Riana Damon On 05/30/2020 18:13:46 PM
--- NOTE | 2020-05-30 18:21 | REPVR ---
PROCEDURE INFORMATION: Exam: MR Lumbar Spine Without and With Contrast Exam date and time: 05/30/2020 4:10 PM Age: 49 years old Clinical indication: Prior surgery; Surgery date: 6+ months; Surgery type: Laminectomy; Patient HX: Low back pain HX SX; Additional info: Trigeminal neuralgia, spondylosis TECHNIQUE: Imaging protocol: Multiplanar magnetic resonance images of the lumbar spine without and with intravenous contrast. Contrast material: PROHANCE; Contrast volume: 17 ml; Contrast route: INTRAVENOUS (IV); COMPARISON: MRI-LS SPINE W/O FOLL WITH CON 10/25/2013 10:18 AM FINDINGS: Vertebrae: No acute compression fracture in the lumbar spine. Spinal cord: The conus medullaris and lower thoracic spinal cord are unremarkable. L1-L2: No significant spinal canal stenosis or neural foraminal narrowing. L2-L3: No significant spinal canal stenosis or neural foraminal narrowing. L3-L4: No significant spinal canal stenosis or neural foraminal narrowing. L4-L5: No significant spinal canal stenosis or neural foraminal narrowing. Degenerative facet arthropathy. L5-S1: Disc space narrowing and endplate degeneration. There has been a right hemilaminectomy. There is no spinal canal stenosis or neural foraminal narrowing. There are pseudomeningocele is a of the S1 nerve root sleeves. There is a postoperative seroma in the posterolateral aspect of the spinal canal at the site of the laminectomy defect. It measures 1.8 cm AP x 8.3 mm in width x 2 cm cc. It does not cause significant compression of the thecal sac. Soft tissues: Multiple bilateral renal cysts. IMPRESSION: There is a small postoperative seroma to the right of midline in the laminectomy defect which does not cause significant compression of the thecal sac. There is no compression of the L5 or S1 nerve roots at the L5-S1 level. There is mild enhancement within the disc which is not atypical postoperatively. There is no evidence of discitis/osteomyelitis. Electronically signed by: Riana Damon On 05/30/2020 18:21:34 PM
--- NOTE | 2020-05-30 19:50 | REP ---
INDICATION: FAILED BACK SYNDROME OF LUMBAR SPINE. COMPARISON: MRI this date, x-ray 10/24/2013 TECHNIQUE: Standard five views with flexion and extension views in addition FINDINGS: Lateral view shows slight loss of lordosis compared to the previous study discogenic endplate sclerosis at L5-S1 and this is increased somewhat from 2014 the other disc space heights and all of the vertebral body heights are intact. Some facet arthropathy at L5-S1 noted. Flexion extension shows better flexion and extension but no instability did not see anterolisthesis with range of motion today. Pedicles spinous and transverse processes grossly intact lower thoracic vertebral levels visualized ribs, sacral ala and foramina, SI joints and iliac wings intact. IMPRESSION: 1. Degenerative disc changes with disc space narrowing at L5-S1 and increase in sclerosis of the endplates since the 2013 study but no instability. Flexion/extension views show somewhat limited range of motion. No anterolisthesis with this range of motion. No other findings. The other disc space heights and all vertebral body heights preserved. <Electronically signed by Brandon Crowley > 05/30/201944
== END ==
LOC: M RAD 14:04
DX: M96.1 Postlaminectomy syndrome, not elsewhere classified (principal); M47.26 Other spondylosis with radiculopathy, lumbar region; G50.0 Trigeminal neuralgia; M51.37 Other intervertebral disc degeneration, lumbosacral region
CPT/HCPCS: 70553; 72114; 72158; A9576

== ENCOUNTER → 2020-06-18 | Outpatient (CLI) | payer MEDICARE ==
[~2020-06-18] MED LIST changes: -PROHANCE 279.3MG/ML 15ML VIAL As Ordered ONE; -PROHANCE 279.3MG/ML 5ML VIAL As Ordered ONE
--- NOTE | 2020-06-18 17:31 | REP ---
INDICATION: POLYCYSTIC KIDNEY. COMPARISON: Renal ultrasound dated 08/27/2017. TECHNIQUE: Multiple ultrasonographic images of the kidneys and bladder and Doppler ultrasound of the bladder. FINDINGS: The right kidney measures 10.9 x 6.0 x 5.5 cm. The left kidney measures 13.5 x 4.8 x 6.9 cm. Renal cortical echogenicity is normal bilaterally. There is no hydronephrosis on the right or the left. There are no renal calculi on the right or the left. No solid renal masses are identified. There are multiple renal cortical cysts bilaterally as previously. No cyst wall in a nodules are identified. No thickened cyst septa are identified. The cysts all have the appearance of simple cysts. The largest cyst in the right kidney is in the mid/lower pole measuring 4.0 x 3.2 x 3.3 cm. The largest cyst in the left kidney is at the midpole measuring 5.1 x 4.4 x 4.9 cm. There is a cyst in the lower pole left kidney measuring 4.6 x 2.9 x 2.4 cm containing a thin septum, having the appearance of a simple cyst. Bladder: No bladder wall nodules or masses are identified. There are bilateral ureteral jets into the bladder with Doppler ultrasound, IMPRESSION: Multiple bilateral renal simple cysts as previously. No solid masses. No hydronephrosis. No renal calculi. <Electronically signed by Yasir Montgomery > 06/18/20 [id number]
== END ==
LOC: M RAD 13:43
PROVIDERS: ATTEND Internal Medicine Nephrology
DX: Q61.2 Polycystic kidney, adult type (principal)

== ENCOUNTER → 2020-06-25 | Outpatient (REF) | payer MEDICARE | LOC: M LAB REF 16:17 | PROVIDERS: ATTEND Internal Medicine | DX: G50.0 Trigeminal neuralgia (principal) ==

== ENCOUNTER → 2020-07-05 | Outpatient (CLI) | payer MEDICARE ==
--- NOTE | 2020-07-07 07:42 | ECWPNPC ---
PATIENT NAME: FATIMAH DEL VALLE : 1970 GENDER: FEMALE VISIT DATE: 07/05/2020 DISCHARGE DATE: 07/05/20 1228 VISIT LOCKED DATE TIME: PHYSICIAN: CLAUDY SANABRIA RESOURCE: CLAUDY SANABRIA REASON FOR APPOINTMENT 1. 3 MONTH BACK PAIN HISTORY OF PRESENT ILLNESS DEPRESSION SCREENING: PHQ-2 (2015 EDITION) LITTLE INTEREST OR PLEASURE IN DOING THINGS?NOT AT ALL FEELING DOWN, DEPRESSED, OR HOPELESS?NOT AT ALL TOTAL SCORE0 50-YEAR-OLD FEMALE IN FOR CHRONIC PAIN FOLLOW-UP. SHE RATES HER PAIN CURRENTLY AT A 7 OUT OF 10 AND DESCRIBES IT ACHING, BURNING, AND CONTINUOUS. SHE DOES FEEL THE LYRICA IS HELPFUL HOWEVER SHE IS STILL EXPERIENCING INCREASED PAIN AT TIMES. GENERAL: -. FALL RISK SCREENING: SCREENING NO FALLS REPORTED IN THE LAST YEAR. PAIN SCREENING: PATIENT HAS A COMPLAINT OF ACUTE OR CHRONIC PAIN :YES LOCATION OF PAIN:FACE, HEAD, BACK INTENSITY OF PAIN (SCALE OF 1 TO 10):7 WHAT DOES YOUR PAIN FEEL LIKE:ACHING, BURNING, CONTINOUS, SHARP DURATION:CONTINOUS, AWAKENS FROM SLEEP PAIN IS INCREASED BY:OTHERS COLD AND WIND PAIN IS DECREASED BY: NOTHING SEEMS TO HELP THE PAIN. LYRICA AND TEGRETOL HELPS SOME NURSING NOTE: -. PAIN CENTER INTAKE QUESTIONS: DO YOU HAVE A HISTORY OF MRSA? :NO DO YOU TAKE A BLOOD THINNERS? :NO DO YOU HAVE ANY BLEEDING DISORDERS? :NO ANY NEW NUMBNESS OR WEAKNESS IN YOUR LEGS OR ARMS? :NO ANY PACEMAKER,DEFIBRILLATOR, OR DORSAL COLUMN STIMULATOR? :NO DO YOU HAVE ANY RASHES OR OPEN SORES? :NO ARE YOU ALLERGIC TO IV DYE? :NO ARE YOU DIABETIC? :NO ANY NEW PROBLEMS WITH YOUR MEDICATIONS? :NO HAVE YOU RECEIVED A VACCINE IN THE PAST 30 DAYS? :YES IF SO WHAT VACCINE AND WHEN? SHINGLES VACCINATION 05/29/2020 DO YOU PLAN TO RECEIVE A VACCINE IN THE NEXT 21 DAYS? :NO DO YOU NEED ANY PRESCRIPTION? :YES LYRICA, HYDROCODONE, NYCYNTA DO YOU TAKE ANY IMMUNOSUPPRESSIVE MEDICATIONS? :NO DO YOU HAVE ANY KIDNEY OR LIVER DISEASE? :YES POLYCYSTIC KIDNEY DISEASE IS THERE A CHANCE YOU COULD BE ? :NO ARE YOU BREAST FEEDING? :NO CURRENT MEDICATIONS TAKING TEGRETOL XR 200 MG TABLET EXTENDED RELEASE 12 HOUR 2 TABS IN AM, 3 TABS IN PM ORALLY DIRECTED/DR. LAGOS TAKING TOPAMAX 50 50MG TABLET 3 TABLETS ORAL TWICE DAILY TAKING VERAPAMIL HCL ER 300 MG CAPSULE EXTENDED RELEASE 24 HOUR 1 CAPSULE ORALLY BEFORE BEDTIME TAKING ELMIRON 100 MG CAPSULE 1 CAPSULE ON AN EMPTY STOMACH ORALLY THREE TIMES A DAY TAKING IMITREX STATDOSE SYSTEM 6 MG/0.5ML KIT ALSO TAKES 100MG TAB PRN SUBCUTANEOUS PRN/H/A TAKING DEXILANT 60 MG CAPSULE DELAYED RELEASE 1 CAPSULE ORALLY ONCE A DAY TAKING MELATONIN 5 MG TABLET 2 TABLETS AT BEDTIME NEEDED WITH FOOD ORALLY ONCE A DAY TAKING IMITREX 100 MG TABLET 1 TABLET NEEDED ORALLY TWICE A DAY, NOTES: NONE RECENT TAKING BACLOFEN 10 MG TABLET 1 TABLET WITH FOOD OR MILK ORALLY THREE TIMES A DAY TAKING LOSARTAN POTASSIUM 100 MG TABLET 1 TABLET ORALLY ONCE A DAY TAKING RESTASIS 0.05 % EMULSION 1 DROP INTO AFFECTED EYE OPHTHALMIC TWICE A DAY TAKING CYMBALTA 60 MG CAPSULE DELAYED RELEASE PARTICLES 1 CAPSULE ORALLY TWICE DAILY TAKING SENNA 8.6 MG TABLET 2 TABLETS AT BEDTIME NEEDED ORALLY ONCE A DAY TAKING HYDROCHLOROTHIAZIDE 25 MG TABLET 1 TABLET IN THE MORNING ORALLY ONCE A DAY TAKING TIZANIDINE HCL 4 MG TABLET 1 TABLET NEEDED ORALLY Q8H PRN TAKING ZYRTEC ALLERGY 10 MG TABLET 1 TABLET ORALLY ONCE A DAY TAKING NUCYNTA ER 100 MG TABLET EXTENDED RELEASE 12 HOUR 1 TABLET ORALLY EVERY 12 HRS MDD2 TAKING LYRICA 50 MG CAPSULE 1 CAPSULE ORALLY IN MORNING AND AT BEDTIME TAKING HYDROCODONE-ACETAMINOPHEN 10-325 MG TABLET 1 TABLET NEEDED ORALLY EVERY 6 HRS MDD4 TAKING CLOTRIMAZOLE-BETAMETHASONE 1-0.05 % CREAM 1 APPLICATION EXTERNALLY VULVA TWICE A DAY UNKNOWN WESTCORT OINTMENT VALERATE 0.2% OINTMENT 30G APPLIED TOPICALLY BID TO AREAS ON BODY WITH ITCHY SPOTS UNKNOWN CLOBETASOL PROPIONATE 0.05 % SOLUTION 1 APPLICATION TO AFFECTED AREA EXTERNALLY TWICE A DAY TO AREAS ON SCALP THAT ITCH UNKNOWN FLUCONAZOLE 150 MG TABLET 1 TABLET ORALLY ONE UNKNOWN DOXYCYCLINE MONOHYDRATE 50 MG CAPSULE 1 CAPSULE ORALLY BID WITH FOOD AND WATER UNKNOWN X-UHORCL-R-CYSTEINE 600 MG CAPSULE 1 CAPSULE ORALLY BID UNKNOWN RANITIDINE HCL 150 MG TABLET 1 CAPSULE AT BEDTIME ORALLY ONCE A DAY UNKNOWN POTASSIUM CHLORIDE 10 10 MEQ TABLET 1 TAB ORAL ONCE DAILY UNKNOWN OXYGEN UNKNOWN LOTEMAX 0.5 % SUSPENSION 1 DROP INTO AFFECTED EYE OPHTHALMIC THREE TIMES DAILY UNKNOWN LYRICA 100 MG CAPSULE 1 CAPSULE ORALLY DAILY, NOTES: TAKES TOTAL OF 200MG DAILY UNKNOWN NORCO 10-325 MG TABLET 1 ORALLY Q6H PRN MDD4 MEDICATION LIST REVIEWED AND RECONCILED WITH THE PATIENT PAST MEDICAL HISTORY SEASONAL ALLERGIES ENVIRONMENTAL ALLERGIES INTERSTITIAL CYSTITIS ULCERATIVE COLITIS HYPERTENSION MIGRAINE HEADACHE, CLUSTER CUELLAR 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 ESOPHAGUS LUMBAR DISC DISEASE SPINAL FLUID LEAK,FX 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 FIBROMYALGIA MCLEAN'S PALSY MONONUCLEOSIS DERMATITIS SCALP LICHEN PLANUS MYRIAD MYRISK GENETIC TEST NEGATIVE 2018 .MRI RECOMMENDED TC SCORE 25.6% TRIGEMINAL TROPHIC SYNDROME ALLERGIES TAPE ADHESIVE : OOZING RASH - ALLERGY PROTONIX: HEMORRHAGE LYRICA: SUICIDAL IDEATIONS - SIDE EFFECTS SOCIAL HISTORY GENERAL: TOBACCO USE ARE YOU A:FORMER SMOKER HOW LONG HAS IT BEEN SINCE YOU LAST SMOKED?> 10 YEARS LATEX QUESTIONNAIRE LATEX ALLERGY : HAVE YOU EVER DEVELOPED ANY TYPE OF REACTION AFTER HANDLING LATEX PRODUCTS SUCH RUBBER GLOVES, CONDOMS, DIAPHRAGMS, BALLOONS, SOCKS, OR UNDERWEAR?NO LATEX ALLERGY : HAVE YOU EVER DEVELOPED ANY TYPE OF REACTION DURING OR AFTER DENTAL APPOINTMENT, VAGINAL/RECTAL EXAMINATION, SURGICAL PROCEDURE, OR ANY OTHER EXPOSURE?NO LATEX RISK : HAVE YOU EVER HAD ANY DIFFICULTY BREATHING OR HIVES AFTER EATING OR HANDLING ANY FRUITS, OR VEGETABLES; SUCH KIWI, BANANAS, STONE FRUITS, OR CHESTNUTSNO LATEX RISK : DO YOU HAVE A PREVIOUS PERSONAL HISTORY OF MORE THAN NINE SURGERIES, SPINA BIFIDA, OR REPEATED CATHERIZATIONS? YES - PLEASE INDICATE : > 9 SURGERIES LATEX RISK : ARE YOU FREQUENTLY EXPOSED TO LATEX PRODUCTS IN YOUR OCCUPATION?NO DATE ASKED : 06/22/2019 ALCOHOL USE: NO. ALCOHOL SCREENING DID YOU HAVE A DRINK CONTAINING ALCOHOL IN THE PAST YEAR?YES HOW OFTEN DID YOU HAVE SIX OR MORE DRINKS ON ONE OCCASION IN THE PAST YEAR?NEVER (0 POINTS) HOW MANY DRINKS DID YOU HAVE ON A TYPICAL DAY WHEN YOU WERE DRINKING IN THE PAST YEAR?1 OR 2 (0 POINTS) HOW OFTEN DID YOU HAVE A DRINK CONTAINING ALCOHOL IN THE PAST YEAR?MONTHLY OR LESS (1 POINT) POINTS1 INTERPRETATIONNEGATIVE RECREATIONAL DRUG USE DRUG USE?NO PATIENT DENIES ABUSE OR MISSUSED OF ANY MEDICATION. PATIENT DENIES USE OF ANY ILLEGAL SUBSTANCE INCLUDING MARIJUANA OR COCAINE. CAFFEINE CAFFEINE USE?YES HOW OFTEN AND HOW MUCH? 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 DIET: TRY TO AVOID FOODS THTAT WILL EFFECT INTERCYSTITIAL CYSTITIS. EXERCISE: NO REGULAR EXERCISE, WALKING IN THE GOOD WEATHER. MARITAL STATUS: . OTHERS AT HOME: SPOUSE AND SON. PATIENT DESCRIBES PAIN :ACHING, BURNING, HAVE IT ALL THE TIME FROM 0-10, WHAT LEVEL IS YOUR PAIN TODAY?6 PRECIPITATING FACTORS THE WIND, SPRING AND FALL, READING ALLEVIATING FACTORS LAYING DOWN IMPACT ON FUNCTION YES - PFS REFERRAL NEEDED?NO CLERGY REFERRAL NEEDED?NO PUBLIC HEALTH REFERRAL NEEDED?NO WAS THE PROVIDER NOTIFIED OF ANY PERTINENT INFO?NO HAS THE PATIENT BEEN EDUCATED REGARDING HIS/HER PLAN OF CARE?YES HAS THE PATIENT BEEN EDUCATED REGARDING PAIN, THE RISK FOR PAIN, THE IMPORTANCE OF EFFECTIVE PAIN MANAGEMENT, AND THE PAIN ASSESSMENT PROCESS?YES ADVANCE DIRECTIVE ADVANCE DIRECTIVE DISCUSSED WITH PATIENT:YES PT DOES NOT HAVE HCP AND DECLINES INFO AND ASSISTANCE WITH FORM AT THIS TIME. REVEIWED WITH PT 05/10/18 1030 BVREVIEWED WITH PATIENT 09/03/18 1335 JSREVIEWED WITH PT 01/04/19 1431 NLJREVIEWED WITH PATIENT 04/11/2019 LAS. REVIEW OF SYSTEMS CONSTITUTIONAL: ANY RECENT FEVER NO . CHILLS NO . WEIGHT CHANGE OF UNKNOWN REASONS NO . GASTROENTEROLOGY: NEW UNEXPLAINABLE CHANGES IN BOWEL CONTROL NO . CONSTIPATION NO . GENITOURINARY: ANY NEW CHANGE IN BLADDER CONTROL? NO . NEUROLOGY: NEW ONSET DIZZINESS OR NEUROLOGICAL CHANGES NOT MENTIONED NO . NEW NUMBNESS OR PAIN PATTERNS NOT MENTIONED AND PERTINENT TO TODAY'S VISIT NO . CARDIOLOGY: NEW CHEST PRESSURE NO . PATIENT DENIES NO . RESPIRATORY: UNEXPLAINABLE COUGH NO . NEW SHORTNESS OF BREATH NO . VITAL SIGNS WT 192.4 LBS, HT 62 1/2, BMI 34.63 INDEX, BP 128/87 MM HG, HR 96 /MIN, RR 18 /MIN, TEMP 98.7 F, OXYGEN SAT % 98%, SAFE IN ENV? (Y/N) YES, REVIEWED BY: YING LEVIN MA. EXAMINATION GENERAL EXAMINATION: GENERALNO ACUTE DISTRESS, WELL NOURISHED AND HYDRATED. PSYCHAPPROPRIATE MOOD AND AFFECT . LUNGS:CLEAR TO AUSCULTATION BILATERALLY, NO WHEEZES, RHONCHI, RALES. HEART:NO MURMURS, REGULAR RATE AND RHYTHM. 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 (PRIMARY) TREATMENT TRIGEMINAL NEURALGIA INCREASE LYRICA CAPSULE, 75 MG, 1 CAPSULE, ORALLY, THREE TIMES DAILY, 30 DAYS, 90 NOTES: 50-YEAR-OLD FEMALE IN FOR CHRONIC PAIN FOLLOW-UP. GIVEN PRESENTING SYMPTOMS RECOMMEND INCREASING LYRICA 75 MG 3 TIMES A DAY WITH FOLLOW-UP IN ONE MONTH TO DETERMINE EFFICACY OF TREATMENT. PATIENT HAS EXPRESSED UNDERSTANDING OF AND WAS IN AGREEMENT TREATMENT PLAN. GIVEN TIME TO ASK QUESTIONS AND EXPRESS CONCERNS. , ISTOP REGISTRY REVIEWED AND DEMONSTRATES COMPLLIANCE. (REF # [id number] ) BRINGS IN MEDICATIONS WHICH IS APPROPRIATE FOR WHAT WAS DISPENSED. RECENT URINE TOXICOLOGY REVIEWED. NO UNAUTHORIZED MEDICATIONS. NO ILLICIT SUBSTANCES AND PRESCRIBED MEDICATIONS WERE PRESENT. PROCEDURE CODES FA211 ESTABILISHED PATIENT [facility] CHARGE DISPOSITION & COMMUNICATION FOLLOW UP 4 WEEKS (REASON: NEURALGIA ) ELECTRONICALLY SIGNED BY NAYELY DILLON ON 07/06/2020 AT 08:53 AM EDT DISCLAIMER : THIS IS A VISIT SUMMARY EXTRACTED FROM THE [employer] (roll.[employer]) CHART. IT IS NOT A COPY OF THE [employer] PROGRESS NOTE. [facility]
== END ==
LOC: M PAIN 11:30
PROVIDERS: ATTEND Family Medicine
DX: G50.0 Trigeminal neuralgia (principal); J30.2 Other seasonal allergic rhinitis; I10 Essential (primary) hypertension; Q61.3 Polycystic kidney, unspecified; K22.70 Barrett's esophagus without dysplasia; M79.7 Fibromyalgia; Z87.891 Personal history of nicotine dependence; G43.909 Migraine, unspecified, not intractable, without status migrainosus; Z79.891 Long term (current) use of opiate analgesic; Z79.899 Other long term (current) drug therapy; Z88.8 Allergy status to other drugs, medicaments and biological substances; Z91.048 Other nonmedicinal substance allergy status

== ENCOUNTER → 2020-07-12 | Outpatient (CLI) | payer MEDICARE ==
--- NOTE | 2020-07-12 12:41 | REPMRS ---
Patient History The patient states she has not had a clinical breast exam in over a year. Patient is postmenopausal. Family history of breast cancer in sister, pancreatic cancer in brother, unknown cancer in brother, unknown cancer in brother, colorectal cancer in paternal aunt, breast cancer in paternal grandmother. 3D TOMOSYNTHESIS WAS PERFORMED. [employer] 360a breast density b. Digital Woman Screen Mammo: July 12, 2020 - Exam #: [id number] Bilateral CC and MLO view(s) were taken. Technologist: Daina Ferraro, Technologist Prior study comparison: June 22, 2019, bilateral digital woman screen mammo performed at [facility] [place]. FINDINGS: The breast tissue is heterogeneously dense. This may lower the sensitivity of mammography. There has been no change in the appearance of the mammogram from the prior studies. There is a moderate amount of residual fibroglandular tissue which is fairly symmetric. There is no interval development of dominant mass, areas of architectural distortion, or clustered microcalcification typical of malignancy. Assessment: BI-RADS/ACR category 1 mammogram. Negative Mammogram. Recommendation Routine screening mammogram in 1 year (for women over age 40). This mammogram was interpreted with the aid of an FDA-approved computer-aided dectection system. THE LIFETIME RISK OF BREAST CANCER IS 24.6%, THEREFORE SUPPLEMENTAL SCREENING MRI OF THE BREASTS IS RECOMMENDED IN 6 MONTHS. Electronically Signed By: Yasir Pruett MD 07/12/20 2080
== END ==
LOC: M WHC 10:43
PROVIDERS: ATTEND Nurse Practitioner Women's Health
DX: Z12.31 Encounter for screening mammogram for malignant neoplasm of breast (principal); Z78.0 Asymptomatic menopausal state; Z80.3 Family history of malignant neoplasm of breast; Z80.0 Family history of malignant neoplasm of digestive organs
CPT/HCPCS: 77063; 77067; G0463

== ENCOUNTER → 2020-08-21 | Outpatient (CLI) | payer MEDICARE ==
--- NOTE | 2020-08-23 02:03 | ECWPNPC ---
PATIENT NAME: FATIMAH DEL VALLE : 1970 GENDER: FEMALE VISIT DATE: 08/21/2020 DISCHARGE DATE: 08/21/20 1133 VISIT LOCKED DATE TIME: PHYSICIAN: CLAUDY SANABRIA RESOURCE: CLAUDY SANABRIA REASON FOR APPOINTMENT 1. UTOX HISTORY OF PRESENT ILLNESS GENERAL: -. FALL RISK SCREENING: SCREENING : NO FALLS REPORTED IN THE LAST YEAR. PAIN SCREENING: PATIENT HAS A COMPLAINT OF ACUTE OR CHRONIC PAIN :NO NURSING NOTE: -. PAIN CENTER INTAKE QUESTIONS: DO YOU HAVE A HISTORY OF MRSA? :NO DO YOU TAKE A BLOOD THINNERS? :NO DO YOU HAVE ANY BLEEDING DISORDERS? :NO ANY NEW NUMBNESS OR WEAKNESS IN YOUR LEGS OR ARMS? :NO ANY PACEMAKER,DEFIBRILLATOR, OR DORSAL COLUMN STIMULATOR? :NO DO YOU HAVE ANY RASHES OR OPEN SORES? :NO ARE YOU ALLERGIC TO IV DYE? :NO ARE YOU DIABETIC? :NO ANY NEW PROBLEMS WITH YOUR MEDICATIONS? :NO HAVE YOU RECEIVED A VACCINE IN THE PAST 30 DAYS? :YES IF SO WHAT VACCINE AND WHEN? SHINGLES VACCINATION 05/29/2020 DO YOU PLAN TO RECEIVE A VACCINE IN THE NEXT 21 DAYS? :NO DO YOU NEED ANY PRESCRIPTION? :YES LYRICA, HYDROCODONE, NYCYNTA DO YOU TAKE ANY IMMUNOSUPPRESSIVE MEDICATIONS? :NO DO YOU HAVE ANY KIDNEY OR LIVER DISEASE? :YES POLYCYSTIC KIDNEY DISEASE IS THERE A CHANCE YOU COULD BE ? :NO ARE YOU BREAST FEEDING? :NO ALLERGIES NO[ALLERGIES VERIFIED] VITAL SIGNS WT 190.2 LBS, HT 62 IN, BMI 34.78 INDEX, BP 146/90 MM HG, HR 77 /MIN, RR 18 /MIN, TEMP 97.1 F, OXYGEN SAT % 97%, NA INITIALS SC 11:23. ASSESSMENTS CHRONIC PRESCRIPTION OPIATE USE - Z79.891 (PRIMARY) TREATMENT CHRONIC PRESCRIPTION OPIATE USE LAB: URINE TEST GROUP OLLIEYUNIER 08/21/2020 11:27:45 AM > LAST DOSE: HYDROCODONE 08/21/2020 AT 0730; NUCYNTA 08/21/2020 AT 0730; PREGABALIN 08/21/2020 AT 0730 DISPOSITION & COMMUNICATION ELECTRONICALLY SIGNED BY NAYELY DILLON ON 08/22/2020 AT 09:01 AM EDT DISCLAIMER : THIS IS A VISIT SUMMARY EXTRACTED FROM THE [employer] CHART. IT IS NOT A COPY OF THE [employer] PROGRESS NOTE. MTDD
== END ==
LOC: M PAIN 11:30
PROVIDERS: ATTEND Family Medicine
DX: Z79.891 Long term (current) use of opiate analgesic (principal)

== ENCOUNTER → 2021-01-17 | Outpatient (CLI) | payer MEDICARE ==
[~2021-01-17] MED LIST changes: -CYMB60CA3 PO; +CYMB60CA4 PO; +METH-1177 PO; -METH10TA2 PO
== END ==
LOC: M PAIN 14:00
PROVIDERS: ATTEND Nurse Practitioner Family
DX: G50.0 Trigeminal neuralgia (principal); G50.1 Atypical facial pain; M96.1 Postlaminectomy syndrome, not elsewhere classified; G43.909 Migraine, unspecified, not intractable, without status migrainosus; M79.7 Fibromyalgia; Z87.891 Personal history of nicotine dependence; Z88.8 Allergy status to other drugs, medicaments and biological substances; Z91.09 Other allergy status, other than to drugs and biological substances; Z79.891 Long term (current) use of opiate analgesic; Z79.899 Other long term (current) drug therapy

== ENCOUNTER → 2021-03-11 | Outpatient (REF) | payer MEDICARE | LOC: M LAB REF 13:06 | PROVIDERS: ATTEND Internal Medicine Nephrology | DX: E87.6 Hypokalemia (principal) ==

== ENCOUNTER → 2021-03-11 | Outpatient (REF) | payer MEDICARE | LOC: M LAB REF 16:25 | PROVIDERS: ATTEND Internal Medicine | DX: G50.0 Trigeminal neuralgia (principal); E87.6 Hypokalemia ==

== ENCOUNTER → 2021-03-14 | Outpatient (CLI) | payer MEDICARE ==
[~2021-03-14] MED LIST changes: +PROHANCE 279.3MG/ML 5ML VIAL As Ordered ONE
--- NOTE | 2021-03-14 16:59 | REP ---
INDICATION: DENSE BREAST TISSUE FM H/O BREAST CA. COMPARISON: MRI 02/09/2020. Mammogram 07/12/2020. TECHNIQUE: Three Emili MRI imaging was performed with a dedicated breast coil. Axial, coronal, and sagittal T1 and T2 weighted scans were obtained with and without fat saturation in the usual fashion. The study includes dynamically acquired post gadolinium-enhanced imaging with image subtraction. Maximum intensity projection and multi planar reformation imaging is included as well. This study is interpreted with the aid of [employer], an FDA approved computer aided detection (CAD) software program, on a dedicated breast MRI workstation. The gadolinium enhancement dose is 8 mL of intravenous ProHance. FINDINGS: There is moderate fibroglandular tissue present. There is no axillary adenopathy. There is no significant cystic change in either breast. There is mild background parenchymal enhancement. There is no suspicious enhancing mass or morphologic abnormality. IMPRESSION: BI-RADS category 1, negative bilateral breast MRI. No suspicious enhancing mass or morphologic abnormality. Yearly supplemental screening MRI of the breasts is recommended for patients with an elevated lifetime risk of breast cancer of 20% or greater, in addition to annual screening mammography, staggered every 6 months. <Electronically signed by Yasir Pruett > 03/14/21 6543
== END ==
LOC: M RAD 12:39
PROVIDERS: ATTEND Nurse Practitioner Women's Health
DX: Z91.89 Other specified personal risk factors, not elsewhere classified (principal); Z80.3 Family history of malignant neoplasm of breast; R92.2 Inconclusive mammogram
CPT/HCPCS: A9576; C8908

== ENCOUNTER → 2021-04-09 | Outpatient (CLI) | payer MEDICARE ==
[~2021-04-09] MED LIST changes: +LOSA100T45 PO; -LOSA100T50 PO; +POTA-149 PO; -POTA10TA16 PO; -PROHANCE 279.3MG/ML 5ML VIAL As Ordered ONE
== END ==
LOC: M PAIN 14:30
PROVIDERS: ATTEND Nurse Practitioner Family
DX: G50.0 Trigeminal neuralgia (principal); J30.2 Other seasonal allergic rhinitis; I10 Essential (primary) hypertension; G43.909 Migraine, unspecified, not intractable, without status migrainosus; K22.70 Barrett's esophagus without dysplasia; M79.7 Fibromyalgia; Z87.891 Personal history of nicotine dependence; Z79.891 Long term (current) use of opiate analgesic; Z79.899 Other long term (current) drug therapy; Q61.2 Polycystic kidney, adult type; Z88.8 Allergy status to other drugs, medicaments and biological substances; Z91.048 Other nonmedicinal substance allergy status

== ENCOUNTER → 2021-06-19 | Outpatient (CLI) | payer MEDICARE | LOC: M PAIN 10:15 | PROVIDERS: ATTEND Anesthesiology | DX: G50.0 Trigeminal neuralgia (principal); M54.81 Occipital neuralgia; L90.5 Scar conditions and fibrosis of skin; D36.10 Benign neoplasm of peripheral nerves and autonomic nervous system, unspecified; G43.909 Migraine, unspecified, not intractable, without status migrainosus; M79.7 Fibromyalgia; Z87.891 Personal history of nicotine dependence; Z88.8 Allergy status to other drugs, medicaments and biological substances; Z91.09 Other allergy status, other than to drugs and biological substances; Z79.891 Long term (current) use of opiate analgesic; Z79.899 Other long term (current) drug therapy ==

== ENCOUNTER → 2021-09-09 | Outpatient (REF) | payer MEDICARE ==
[2021-09-09 17:27] LABS: URIC ACID 3.3 MG/DL (2.6-6.0)
[2021-09-10 12:36] LABS: CARBAMAZEPINE (TEGRETOL) LEVEL 13.9 UG/ML (4.0-10.0)
== END ==
LOC: M LAB REF 16:34
PROVIDERS: ATTEND Internal Medicine
DX: G50.0 Trigeminal neuralgia (principal); M79.674 Pain in right toe(s)

== ENCOUNTER → 2022-02-06 | Outpatient (CLI) | payer MEDICARE ==
[~2022-02-06] MED LIST changes: +CHEL50TA3 PO; +CLOT1CRE71 EXT; +DULO1CAP6 PO; +HYDR0.2C21 EXT; +MELA10CA6 PO; +NUCY100T11 PO; +OMEP40CA5 PO; +VITATAB73 PO; +VITMTA PO
== END ==
LOC: M LABSMTC 11:35
PROVIDERS: ATTEND Anesthesiology
DX: Z01.818 Encounter for other preprocedural examination (principal); Z11.52 Encounter for screening for COVID-19

== ENCOUNTER → 2022-02-09 | Outpatient (CLI) | payer MEDICARE | LOC: M LABSMTC 10:27 | PROVIDERS: ATTEND Anesthesiology | DX: Z01.812 Encounter for preprocedural laboratory examination (principal) ==

== ENCOUNTER 2022-02-11 09:15 | Day surgery (SDC) | payer MEDICARE ==
[~2022-02-11] VITALS: Ht 160 cm; Wt 83.5 kg
[~2022-02-11 09:15] MED LIST changes: +NS 1,000 ML IV ONE
[2022-02-11] MEDS ORDERED: LIDOCAINE 2% 100MG/5ML SDV (FOR ANES.) As Ordered ONE (11:04)
[2022-02-11] MEDS ORDERED: fentaNYL 100 MCG/2 ML INJECTION As Ordered ONE (11:04)
[2022-02-11] MEDS ORDERED: propofoL 200 MG/20 ML VIAL As Ordered ONE ×2 (11:04→11:33)
[2022-02-11 12:00] VITALS: BP 110/68
== END 2022-02-11 12:16 | disposition home or self-care (01) ==
LOC: M OPP 09:15
PROVIDERS: ATTEND Internal Medicine Gastroenterology
DX: Z12.11 Encounter for screening for malignant neoplasm of colon (principal); Z80.0 Family history of malignant neoplasm of digestive organs; D12.8 Benign neoplasm of rectum; K57.30 Diverticulosis of large intestine without perforation or abscess without bleeding; K44.9 Diaphragmatic hernia without obstruction or gangrene; K22.70 Barrett's esophagus without dysplasia; R13.10 Dysphagia, unspecified; Z79.1 Long term (current) use of non-steroidal anti-inflammatories (NSAID); Z79.891 Long term (current) use of opiate analgesic; Z79.899 Other long term (current) drug therapy; Z88.8 Allergy status to other drugs, medicaments and biological substances; Z91.048 Other nonmedicinal substance allergy status; I10 Essential (primary) hypertension; E78.00 Pure hypercholesterolemia, unspecified; M79.7 Fibromyalgia; F32.9 Major depressive disorder, single episode, unspecified; F41.9 Anxiety disorder, unspecified; G43.909 Migraine, unspecified, not intractable, without status migrainosus; Q61.2 Polycystic kidney, adult type; Z87.820 Personal history of traumatic brain injury; Z87.448 Personal history of other diseases of urinary system; Z92.3 Personal history of irradiation
CPT/HCPCS: 43239; 45385; 88305; J3010

== ENCOUNTER → 2022-02-14 | Outpatient (REF) | payer MEDICARE ==
[~2022-02-14] MED LIST changes: -NS 1,000 ML IV ONE
== END ==
LOC: M LAB REF 16:10
PROVIDERS: ATTEND Physician Assistant
DX: J06.9 Acute upper respiratory infection, unspecified (principal)

== ENCOUNTER → 2022-03-26 | Outpatient (REF) | payer MEDICARE ==
[~2022-03-26] MED LIST changes: -PAXI20TA29 PO; +PAXI20TA30 PO
== END ==
LOC: M WUC 16:12
PROVIDERS: ATTEND Student in an Organized Health Care Education/Training Program
DX: J02.9 Acute pharyngitis, unspecified (principal)

== ENCOUNTER → 2022-04-29 | Outpatient (REF) | payer MEDICARE | LOC: M LAB REF 11:24 | PROVIDERS: ATTEND Internal Medicine | DX: G50.0 Trigeminal neuralgia (principal) ==

== ENCOUNTER → 2022-05-05 | Outpatient (CLI) | payer MEDICARE ==
[~2022-05-05] MED LIST changes: +LIDO15SO4; -LIDO2SOL17
== END ==
LOC: M PAIN 15:30
PROVIDERS: ATTEND Anesthesiology
DX: G50.0 Trigeminal neuralgia (principal); D36.10 Benign neoplasm of peripheral nerves and autonomic nervous system, unspecified; M54.81 Occipital neuralgia; J30.2 Other seasonal allergic rhinitis; K51.00 Ulcerative (chronic) pancolitis without complications; I10 Essential (primary) hypertension; N30.10 Interstitial cystitis (chronic) without hematuria; G43.909 Migraine, unspecified, not intractable, without status migrainosus; K22.70 Barrett's esophagus without dysplasia; M79.7 Fibromyalgia; L43.9 Lichen planus, unspecified; L25.9 Unspecified contact dermatitis, unspecified cause; Z87.891 Personal history of nicotine dependence; Z79.891 Long term (current) use of opiate analgesic; Z79.899 Other long term (current) drug therapy; Z88.8 Allergy status to other drugs, medicaments and biological substances; Z91.048 Other nonmedicinal substance allergy status

== ENCOUNTER → 2022-05-11 | Outpatient (CLI) | payer MEDICARE | LOC: M LABSMTC 11:45 | PROVIDERS: ATTEND Anesthesiology | DX: Z01.812 Encounter for preprocedural laboratory examination (principal) ==

== ENCOUNTER → 2022-05-13 | Outpatient (CLI) | payer MEDICARE ==
[~2022-05-13] MED LIST changes: +BUPIVACAINE HCL 0.25% 10ML VIAL As Ordered ONE; +BUPIVACAINE HCL 0.25% 30ML VIAL As Ordered ONE; +TRIAMCINOLONE ACETONIDE SUSP 40MG/ML 1ML VIAL As Ordered ONE; +diazePAM 5MG TABLET As Ordered ONE; +oxyCODONE 5MG TAB As Ordered ONE
== END ==
LOC: M PAIN 14:00
PROVIDERS: ATTEND Anesthesiology
DX: D36.10 Benign neoplasm of peripheral nerves and autonomic nervous system, unspecified (principal); G89.29 Other chronic pain; I10 Essential (primary) hypertension; G43.909 Migraine, unspecified, not intractable, without status migrainosus; M79.7 Fibromyalgia; Z87.891 Personal history of nicotine dependence; Z88.8 Allergy status to other drugs, medicaments and biological substances; Z91.09 Other allergy status, other than to drugs and biological substances; Z79.891 Long term (current) use of opiate analgesic; Z79.899 Other long term (current) drug therapy
CPT/HCPCS: 11900; J3301

== ENCOUNTER → 2022-05-27 | Outpatient (CLI) | payer MEDICARE ==
[~2022-05-27] MED LIST changes: -BUPIVACAINE HCL 0.25% 10ML VIAL As Ordered ONE; -BUPIVACAINE HCL 0.25% 30ML VIAL As Ordered ONE; -TRIAMCINOLONE ACETONIDE SUSP 40MG/ML 1ML VIAL As Ordered ONE; -diazePAM 5MG TABLET As Ordered ONE; -oxyCODONE 5MG TAB As Ordered ONE
== END ==
LOC: M PAIN 09:30
PROVIDERS: ATTEND Anesthesiology
DX: G89.29 Other chronic pain (principal); G50.0 Trigeminal neuralgia; D36.10 Benign neoplasm of peripheral nerves and autonomic nervous system, unspecified; I10 Essential (primary) hypertension; G43.909 Migraine, unspecified, not intractable, without status migrainosus; M79.7 Fibromyalgia; Z87.891 Personal history of nicotine dependence; Z88.8 Allergy status to other drugs, medicaments and biological substances; Z91.09 Other allergy status, other than to drugs and biological substances; Z79.891 Long term (current) use of opiate analgesic; Z79.899 Other long term (current) drug therapy

== ENCOUNTER → 2022-06-25 | Outpatient (CLI) | payer MEDICARE ==
[~2022-06-25] MED LIST changes: +LIDO15SO; -LIDO15SO4
== END ==
LOC: M LABSMTC 11:50
PROVIDERS: ATTEND Anesthesiology
DX: Z01.812 Encounter for preprocedural laboratory examination (principal)

== ENCOUNTER → 2022-06-25 | Outpatient (CLI) | payer MEDICARE ==
[~2022-06-25] MED LIST changes: -LIDO15SO; +LIDO15SO4
== END ==
LOC: M PAIN 11:30
PROVIDERS: ATTEND Anesthesiology
DX: G89.29 Other chronic pain (principal); G50.0 Trigeminal neuralgia; R51.9 Headache, unspecified; J30.2 Other seasonal allergic rhinitis; I10 Essential (primary) hypertension; M79.7 Fibromyalgia; L43.9 Lichen planus, unspecified; K22.70 Barrett's esophagus without dysplasia; Z87.891 Personal history of nicotine dependence; Z79.891 Long term (current) use of opiate analgesic; Z79.899 Other long term (current) drug therapy; Z88.8 Allergy status to other drugs, medicaments and biological substances; Z91.048 Other nonmedicinal substance allergy status

== ENCOUNTER → 2022-06-26 | Outpatient (CLI) | payer MEDICARE ==
[~2022-06-26] MED LIST changes: +BUPIVACAINE HCL 0.25% 10ML VIAL As Ordered ONE; +LIDO15SO; -LIDO15SO4; -LOSA100T45 PO; +LOSA100T46 PO; +TRIAMCINOLONE ACETONIDE SUSP 40MG/ML 1ML VIAL As Ordered ONE; +diazePAM 5MG TABLET As Ordered ONE; +diphenhydrAMINE 25MG CAP As Ordered ONE; +oxyCODONE 5MG TAB As Ordered ONE
== END ==
LOC: M PAIN 09:30
PROVIDERS: ATTEND Anesthesiology
DX: G51.8 Other disorders of facial nerve (principal); G50.1 Atypical facial pain; I10 Essential (primary) hypertension; G43.909 Migraine, unspecified, not intractable, without status migrainosus; M79.7 Fibromyalgia; Z87.891 Personal history of nicotine dependence; Z88.8 Allergy status to other drugs, medicaments and biological substances; Z91.09 Other allergy status, other than to drugs and biological substances; Z79.891 Long term (current) use of opiate analgesic; Z79.899 Other long term (current) drug therapy
CPT/HCPCS: 64400; J3301

== ENCOUNTER → 2022-07-10 | Outpatient (CLI) | payer MEDICARE ==
[~2022-07-10] MED LIST changes: -BUPIVACAINE HCL 0.25% 10ML VIAL As Ordered ONE; +LOSA100T45 PO; -LOSA100T46 PO; -TRIAMCINOLONE ACETONIDE SUSP 40MG/ML 1ML VIAL As Ordered ONE; -diazePAM 5MG TABLET As Ordered ONE; -diphenhydrAMINE 25MG CAP As Ordered ONE; -oxyCODONE 5MG TAB As Ordered ONE
== END ==
LOC: M PAIN 11:15
PROVIDERS: ATTEND Anesthesiology
DX: G89.29 Other chronic pain (principal); G51.8 Other disorders of facial nerve; R51.9 Headache, unspecified; J30.2 Other seasonal allergic rhinitis; I10 Essential (primary) hypertension; G43.909 Migraine, unspecified, not intractable, without status migrainosus; K22.70 Barrett's esophagus without dysplasia; M79.7 Fibromyalgia; Z87.891 Personal history of nicotine dependence; Z79.891 Long term (current) use of opiate analgesic; Z79.899 Other long term (current) drug therapy; Z88.8 Allergy status to other drugs, medicaments and biological substances; Z91.048 Other nonmedicinal substance allergy status

== ENCOUNTER → 2022-09-15 | Outpatient (REF) | payer MEDICARE ==
[~2022-09-15] MED LIST changes: -LOSA100T45 PO; +LOSA100T46 PO
== END ==
LOC: M SFHCWAGY 10:04
PROVIDERS: ATTEND Nurse Practitioner Family
DX: Z12.4 Encounter for screening for malignant neoplasm of cervix (principal)
CPT/HCPCS: 87624; G0123

== ENCOUNTER → 2022-09-15 | Outpatient (CLI) | payer MEDICARE | LOC: M WHC 14:52 | PROVIDERS: ATTEND Obstetrics & Gynecology | DX: Z12.31 Encounter for screening mammogram for malignant neoplasm of breast (principal); Z80.3 Family history of malignant neoplasm of breast ==

== ENCOUNTER → 2022-09-17 | Outpatient (CLI) | payer MEDICARE, MEDICAID | LOC: M PAIN 10:15 | PROVIDERS: ATTEND Anesthesiology | DX: G50.1 Atypical facial pain (principal); G50.0 Trigeminal neuralgia; D36.10 Benign neoplasm of peripheral nerves and autonomic nervous system, unspecified; J30.2 Other seasonal allergic rhinitis; I10 Essential (primary) hypertension; K51.90 Ulcerative colitis, unspecified, without complications; G43.909 Migraine, unspecified, not intractable, without status migrainosus; K22.70 Barrett's esophagus without dysplasia; M79.7 Fibromyalgia; L43.9 Lichen planus, unspecified; Z87.891 Personal history of nicotine dependence; Z79.891 Long term (current) use of opiate analgesic; Z79.899 Other long term (current) drug therapy; Z91.048 Other nonmedicinal substance allergy status ==

== ENCOUNTER → 2022-12-09 | Outpatient (REF) | payer MEDICARE, MEDICAID | LOC: M LAB REF 16:26 | PROVIDERS: ATTEND Internal Medicine | DX: G50.0 Trigeminal neuralgia (principal) ==

== ENCOUNTER → 2022-12-17 | Outpatient (CLI) | payer MEDICARE, MEDICAID | LOC: M PAIN 10:30 | PROVIDERS: ATTEND Anesthesiology | DX: G50.1 Atypical facial pain (principal); G50.0 Trigeminal neuralgia; D36.10 Benign neoplasm of peripheral nerves and autonomic nervous system, unspecified; J30.2 Other seasonal allergic rhinitis; I10 Essential (primary) hypertension; K51.90 Ulcerative colitis, unspecified, without complications; G43.909 Migraine, unspecified, not intractable, without status migrainosus; K22.70 Barrett's esophagus without dysplasia; M79.7 Fibromyalgia; L43.9 Lichen planus, unspecified; Q61.2 Polycystic kidney, adult type; Z87.891 Personal history of nicotine dependence; Z79.891 Long term (current) use of opiate analgesic; Z79.899 Other long term (current) drug therapy; Z91.048 Other nonmedicinal substance allergy status ==

== ENCOUNTER 2023-02-02 12:34 | Emergency (ER) | payer MEDICAID, MEDICARE ==
[~2023-02-02] VITALS: Ht 157.5 cm; Wt 83.3 kg
[2023-02-02 13:45] LABS: BASO # 0.1 10^3/uL (0.0-0.2); BASO % 0.7 % (0.0-1.0); EOS # 0.2 10^3/uL (0.0-0.5); EOS % 2.7 % (0.0-3.0); HEMATOCRIT 39.7 % (36.0-47.0); HEMOGLOBIN 13.3 g/dl (12.0-15.5); LYMPH # 4.1 10^3/uL (1.5-5.0); LYMPH % 48.4 % (24.0-44.0); MEAN CORPUSCULAR HEMOGLOBIN 32.5 pg (27.0-33.0); MEAN CORPUSCULAR HGB CONC 33.5 g/dl (32.0-36.5); MEAN CORPUSCULAR VOLUME 97.1 fl (80.0-96.0); MONO # 0.5 10^3/uL (0.0-0.8); MONO % 5.5 % (2.0-8.0); NEUTROPHILS # 3.6 10^3/uL (1.5-8.5); NEUTROPHILS % 42.5 % (36.0-66.0); PLATELET COUNT, AUTOMATED 310 10^3/uL (150-450); RED BLOOD COUNT 4.09 10^6/uL (4.00-5.40); WHITE BLOOD COUNT 8.4 10^3/uL (4.0-10.0)
[2023-02-02 14:03] LABS: BLOOD UREA NITROGEN 19 MG/DL (9-23); CARBON DIOXIDE LEVEL 27 MMOL/L (20-31); CHLORIDE LEVEL 106 MMOL/L (98-107); CREATININE FOR GFR 0.82 MG/DL (0.55-1.30); GLOMERULAR FILTRATION RATE > 60.0 (>51); GLUCOSE, FASTING 108 MG/DL (60-100); SODIUM LEVEL 143 MMOL/L (136-145)
[2023-02-02] MEDS ORDERED: LIDOCAINE W/EPINEPHRINE 1% 20ML VIAL SC ONE (17:05)
[2023-02-02] MEDS ORDERED: PROC1CRE5 PR ×2 (17:42→18:00)
[2023-02-02] MEDS ORDERED: LIDO30CR18 TOP ×2 (17:42→18:00)
[2023-02-02 18:07] VITALS: BP 134/87; TEMP 97.7; O2SAT 98
== END 2023-02-02 18:07 | disposition home or self-care (01) ==
LOC: M ED 12:34
DX: K64.5 Perianal venous thrombosis (principal); I10 Essential (primary) hypertension; K52.9 Noninfective gastroenteritis and colitis, unspecified; F41.9 Anxiety disorder, unspecified; F32.A Depression, unspecified; Z86.73 Personal history of transient ischemic attack (TIA), and cerebral infarction without residual deficits; Z88.8 Allergy status to other drugs, medicaments and biological substances; Z91.048 Other nonmedicinal substance allergy status; Z80.0 Family history of malignant neoplasm of digestive organs; Z79.899 Other long term (current) drug therapy

== ENCOUNTER → 2023-04-15 | Outpatient (CLI) | payer MEDICARE, MEDICAID ==
[~2023-04-15] MED LIST changes: +LIDO30CR18 TOP; +PROC1CRE5 PR
== END ==
LOC: M PAIN 14:00
PROVIDERS: ATTEND Anesthesiology
DX: G51.8 Other disorders of facial nerve (principal); Z79.891 Long term (current) use of opiate analgesic; G50.1 Atypical facial pain; I10 Essential (primary) hypertension; G43.909 Migraine, unspecified, not intractable, without status migrainosus; M79.7 Fibromyalgia; Z79.899 Other long term (current) drug therapy; Z87.891 Personal history of nicotine dependence; Z91.048 Other nonmedicinal substance allergy status

== ENCOUNTER → 2023-04-30 | Outpatient (CLI) | payer MEDICARE | LOC: M PAIN 16:00 | PROVIDERS: ATTEND Anesthesiology | DX: G50.1 Atypical facial pain (principal); Z79.891 Long term (current) use of opiate analgesic; G50.0 Trigeminal neuralgia; I10 Essential (primary) hypertension; M79.7 Fibromyalgia; Z87.891 Personal history of nicotine dependence; Z79.899 Other long term (current) drug therapy; Z91.048 Other nonmedicinal substance allergy status ==

== ENCOUNTER → 2023-05-18 | Outpatient (CLI) | payer MEDICARE ==
[~2023-05-18] MED LIST changes: +PROHANCE 279.3MG/ML 15ML VIAL ONE
== END ==
LOC: M PLAIMG 12:59
PROVIDERS: ATTEND Internal Medicine
DX: Z80.3 Family history of malignant neoplasm of breast (principal)

== ENCOUNTER → 2023-07-06 | Outpatient (CLI) | payer MEDICARE ==
[~2023-07-06] MED LIST changes: -LIDO15SO; +LIDO15SO8; -PROHANCE 279.3MG/ML 15ML VIAL ONE
== END ==
LOC: M PAIN 17:00
PROVIDERS: ATTEND Nurse Practitioner Family
DX: G50.1 Atypical facial pain (principal); Z79.891 Long term (current) use of opiate analgesic; G50.0 Trigeminal neuralgia; G89.29 Other chronic pain; I10 Essential (primary) hypertension; Z87.891 Personal history of nicotine dependence; Z79.899 Other long term (current) drug therapy; Z88.8 Allergy status to other drugs, medicaments and biological substances; Z91.048 Other nonmedicinal substance allergy status

== ENCOUNTER → 2023-10-23 | Outpatient (CLI) | payer MEDICARE | LOC: M PAIN 16:00 | PROVIDERS: ATTEND Nurse Practitioner Family | DX: G50.1 Atypical facial pain (principal); G89.29 Other chronic pain; I10 Essential (primary) hypertension; G43.909 Migraine, unspecified, not intractable, without status migrainosus; K22.70 Barrett's esophagus without dysplasia; M79.7 Fibromyalgia; L43.9 Lichen planus, unspecified; Z87.891 Personal history of nicotine dependence; Z79.891 Long term (current) use of opiate analgesic; Z79.899 Other long term (current) drug therapy; Z91.048 Other nonmedicinal substance allergy status ==

== ENCOUNTER → 2024-01-29 | Outpatient (CLI) | payer MEDICARE | LOC: M PAIN 16:00 | PROVIDERS: ATTEND Nurse Practitioner Family | DX: G50.1 Atypical facial pain (principal); Z79.891 Long term (current) use of opiate analgesic; G89.29 Other chronic pain; I10 Essential (primary) hypertension; G43.909 Migraine, unspecified, not intractable, without status migrainosus; K22.70 Barrett's esophagus without dysplasia; M79.7 Fibromyalgia; L43.9 Lichen planus, unspecified; Z87.891 Personal history of nicotine dependence; Z79.899 Other long term (current) drug therapy; Z91.048 Other nonmedicinal substance allergy status ==

== ENCOUNTER → 2024-04-04 | Outpatient (CLI) | payer MEDICARE | LOC: M PAIN 16:30 | PROVIDERS: ATTEND Nurse Practitioner Family | DX: G50.1 Atypical facial pain (principal); G89.29 Other chronic pain; Z79.891 Long term (current) use of opiate analgesic; Z79.899 Other long term (current) drug therapy; Z87.891 Personal history of nicotine dependence; Z91.048 Other nonmedicinal substance allergy status ==

== ENCOUNTER → 2024-05-31 | Outpatient (CLI) | payer MEDICARE | LOC: M PAIN 15:30 | PROVIDERS: ATTEND Nurse Practitioner Family | DX: G50.1 Atypical facial pain (principal); G89.29 Other chronic pain; Z79.891 Long term (current) use of opiate analgesic; Z79.899 Other long term (current) drug therapy; Z87.891 Personal history of nicotine dependence; Z91.048 Other nonmedicinal substance allergy status ==

== ENCOUNTER → 2024-06-16 | Outpatient (CLI) | payer MEDICARE | LOC: M PLAIMG 11:19 | PROVIDERS: ATTEND Internal Medicine | DX: R10.12 Left upper quadrant pain (principal); K59.00 Constipation, unspecified ==

== ENCOUNTER 2024-10-10 10:40 | Day surgery (SDC) | payer MEDICARE ==
[~2024-10-10] VITALS: Ht 157.5 cm; Wt 83.5 kg
[~2024-10-10 10:40] MED LIST changes: +GABA-1171 PO; +PREG-35 PO; -PREG100CA PO; -PREG50CA PO; +PREG50CA87 PO; -VERA300C6 PO; +VERA300C7 PO
[2024-10-10] MEDS ORDERED: LIDOCAINE 2% 100 MG/5 ML SDV (FOR ANES.) As Ordered ONE (12:08)
[2024-10-10] MEDS ORDERED: GLYCOPYRROLATE INJ 0.2 MG/ML 2 ML VIAL As Ordered ONE (12:08)
[2024-10-10 13:11] VITALS: BP 141/95; O2SAT 96
== END 2024-10-10 13:11 | disposition home or self-care (01) ==
LOC: M OPP 10:40
PROVIDERS: ATTEND Internal Medicine Gastroenterology
DX: Z12.11 Encounter for screening for malignant neoplasm of colon (principal); D12.5 Benign neoplasm of sigmoid colon; K57.30 Diverticulosis of large intestine without perforation or abscess without bleeding; K64.8 Other hemorrhoids; Z80.0 Family history of malignant neoplasm of digestive organs; K22.70 Barrett's esophagus without dysplasia; K31.7 Polyp of stomach and duodenum; Z86.73 Personal history of transient ischemic attack (TIA), and cerebral infarction without residual deficits; Z91.048 Other nonmedicinal substance allergy status; Z79.891 Long term (current) use of opiate analgesic; Z79.899 Other long term (current) drug therapy
CPT/HCPCS: 43239; 45385; 88305; J1596